=== PATIENT | female | born 1965 | race Caucasian/White ===

== ENCOUNTER 2020-09-06 08:12 | Outpatient (REF) | payer OTHER, SELFPAY ==
[2020-09-06 08:31] LABS: COVID-19 Test Negative (Negative); IDNOW Serial# 55D5AD1C
== END 2020-09-06 08:13 | disposition home or self-care (01) ==
LOC: HO.EMPCOV 08:12
PROVIDERS: Visit Provider Internal Medicine
DX: Z20.822 Contact with and (suspected) exposure to COVID-19 (principal)
CPT/HCPCS: 36415; 87635; C9803

== ENCOUNTER 2020-11-17 12:07 | Outpatient (REF) | payer OTHER, SELFPAY ==
--- NOTE | ~2020-11-17 | XR_ITS ---
EXAMINATION: XR ELBOW, LEFT CLINICAL INFORMATION: Pain in left elbow COMPARISON: None TECHNIQUE: AP, lateral, and oblique views of the left elbow. FINDINGS: There are multiple radiopaque anchors in place involving the distal humerus. There is irregular appearance at the elbow, with contour deformity of the distal humerus. The articulation of the proximal radius and ulna with the distal humerus is disrupted. No acute fractures are seen. Diffuse soft tissue swelling noted. No definite joint effusion. XR/XR elbow LT 2V IMPRESSION: Abnormal appearance at the left elbow with deformity of the distal humerus associated with disruption of the articulation. Multiple radiopaque anchors are noted.
== END 2020-11-17 12:08 | disposition home or self-care (01) ==
LOC: HO.XRAY 12:07
PROVIDERS: PCP Internal Medicine Endocrinology, Diabetes & Metabolism; Visit Provider Orthopaedic Surgery Hand Surgery
DX: M25.522 Pain in left elbow (principal)
CPT/HCPCS: 73070

== ENCOUNTER 2020-11-28 08:10 | Outpatient (REF) | payer OTHER, SELFPAY ==
[2020-11-28 09:20] LABS: COVID-19 Test Negative (Negative)
== END 2020-11-28 08:11 | disposition home or self-care (01) ==
LOC: HO.EMPCOV 08:10
PROVIDERS: Visit Provider Internal Medicine
DX: Z20.822 Contact with and (suspected) exposure to COVID-19 (principal)
CPT/HCPCS: 36415; 87635; C9803

== ENCOUNTER 2021-03-02 09:49 | Outpatient (REF) | payer OTHER, SELFPAY ==
--- NOTE | ~2021-03-02 | US_ITS ---
EXAMINATION: COLOR-FLOW DUPLEX IMAGING OF THE BILATERAL LOWER EXTREMITY ARTERIAL SYSTEM. VELOCITY MEASUREMENTS THROUGHOUT THE FEMORAL ARTERIES WITH ANKLE-BRACHIAL PERIPHERAL ARTERIAL TESTING. Interventional Radiologist: Conner Almonte M.D., F.S.I.R., F.A.C.R. CLINICAL INFORMATION: This a 55-year-old female with poor circulation. Peripheral arterial disease. RIGHT FEMORAL RUNOFF VELOCITIES: The right common femoral artery measures 234 cm/s and triphasic. There is post stenotic turbulence. The right profunda femoral artery is 112 cm/s and is biphasic. Right proximal superficial femoral artery measures 168 cm/s and triphasic. Mid superficial femoral artery is 121 cm/s and triphasic. Distal right superficial femoral artery measures 105 cm/s and is triphasic. Right popliteal velocity measures 83 cm/s and is triphasic. The posterior tibial artery velocity measures 77 cm/s and was triphasic. The right ankle-brachial index is 0.87. The right toe brachial index is 0.60. LEFT FEMORAL RUNOFF VELOCITIES: The left common femoral artery measures 140 cm/s and triphasic. The left profunda femoral artery is 113 cm/s and is triphasic. Left proximal superficial femoral artery measures 121 cm/s and triphasic. Mid superficial femoral artery is 49 cm/s and triphasic. Distal left superficial femoral artery measures 282 cm/s and is biphasic. Left popliteal velocity measures 84 cm/s and is biphasic. The posterior tibial artery velocity measures 37 cm/s and was biphasic. The left ankle-brachial index is 0.52. The toe brachial index is 0.65. US/US arterial duplex LE BI IMPRESSION: 1. There is an elevated velocity with poststenotic turbulence in the right common femoral artery. This suggests right-sided aortoiliac inflow disease. 2. There is a high-grade stenosis with elevated velocity and an occlusion in the mid-distal left superficial femoral artery. 3. An arrhythmia is demonstrated on the duplex portion of the study. 4. There are bilateral hemodynamically significant stenoses based on the ankle-brachial indices.
--- NOTE | ~2021-03-02 | US_ITS ---
EXAMINATION: COLOR-FLOW DUPLEX IMAGING OF THE BILATERAL LOWER EXTREMITY ARTERIAL SYSTEM. VELOCITY MEASUREMENTS THROUGHOUT THE FEMORAL ARTERIES WITH ANKLE-BRACHIAL PERIPHERAL ARTERIAL TESTING. Interventional Radiologist: Conner Almonte M.D., F.S.I.R., F.A.C.R. CLINICAL INFORMATION: This a 55-year-old female with poor circulation. Peripheral arterial disease. RIGHT FEMORAL RUNOFF VELOCITIES: The right common femoral artery measures 234 cm/s and triphasic. There is post stenotic turbulence. The right profunda femoral artery is 112 cm/s and is biphasic. Right proximal superficial femoral artery measures 168 cm/s and triphasic. Mid superficial femoral artery is 121 cm/s and triphasic. Distal right superficial femoral artery measures 105 cm/s and is triphasic. Right popliteal velocity measures 83 cm/s and is triphasic. The posterior tibial artery velocity measures 77 cm/s and was triphasic. The right ankle-brachial index is 0.87. The right toe brachial index is 0.60. LEFT FEMORAL RUNOFF VELOCITIES: The left common femoral artery measures 140 cm/s and triphasic. The left profunda femoral artery is 113 cm/s and is triphasic. Left proximal superficial femoral artery measures 121 cm/s and triphasic. Mid superficial femoral artery is 49 cm/s and triphasic. Distal left superficial femoral artery measures 282 cm/s and is biphasic. Left popliteal velocity measures 84 cm/s and is biphasic. The posterior tibial artery velocity measures 37 cm/s and was biphasic. The left ankle-brachial index is 0.52. The toe brachial index is 0.65. US/US ALFIE complete IMPRESSION: 1. There is an elevated velocity with poststenotic turbulence in the right common femoral artery. This suggests right-sided aortoiliac inflow disease. 2. There is a high-grade stenosis with elevated velocity and an occlusion in the mid-distal left superficial femoral artery. 3. An arrhythmia is demonstrated on the duplex portion of the study. 4. There are bilateral hemodynamically significant stenoses based on the ankle-brachial indices.
== END 2021-03-02 09:50 | disposition home or self-care (01) ==
LOC: HO.US 09:49
PROVIDERS: Visit Provider Podiatrist Foot & Ankle Surgery
DX: I73.9 Peripheral vascular disease, unspecified (principal); I99.9 Unspecified disorder of circulatory system
CPT/HCPCS: 93923; 93925

== ENCOUNTER → 2021-04-06 15:34 | Outpatient (BNVA) | payer OTHER, SELFPAY | PROVIDERS: PCP Internal Medicine Endocrinology, Diabetes & Metabolism; Visit Provider Surgery Vascular Surgery ==

== ENCOUNTER 2021-04-19 07:27 | Day surgery (SDC) | payer OTHER, SELFPAY ==
[2021-04-19] VITALS (7 sets, daily range): BP systolic 111–135; BP diastolic 48–76; PULSE 64–75; RESP 18–20; TEMP 36.8; O2SAT 95–97; BMI 37.5
[2021-04-19] MEDS: 0.9 % Sodium Chloride 1,000 ML 100 ML IVCONT (08:45)
[2021-04-19 08:58] LABS: MANUAL DIFF FLAG NO
[2021-04-19 09:00] LABS: Basophils Absolute Auto 0.1 X10*3/uL (0.0-0.2); Basophils Percent Auto 0.5 % (0-2); Eosinophils Absolute Auto 0.3 X10*3/uL (0.0-0.4); Eosinophils Percent Auto 2.4 % (0-4); Hemoglobin 12.9 g/dl (12.0-16.0); Imm Gran Abs Auto 0.04 X10*3/uL (0.00-0.03); Imm Gran Pct Auto 0.4 % (0.0-0.4); Lymphocytes Absolute Auto 3.1 X10*3/uL (1.2-4.9); Lymphocytes Percent Auto 27.4 % (20-40); Mean Corpuscular HGB Conc 33.1 g/dl (31.0-35.0); Mean Corpuscular Hemoglobin 31.2 pg (27.0-33.0); Mean Corpuscular Volume 94.2 fL (80-98); Mean Platelet Volume 9.4 fL (9.4-12.3); Monocytes Absolute Auto 0.8 X10*3/uL (0.1-1.2); Monocytes Percent Auto 6.9 % (2-11); Neutrophils Absolute Auto 7.1 X10*3/uL (2.0-8.3); Neutrophils Percent Auto 62.4 % (45-73); Platelet Count 330 X10*3/uL (160-400); Red Blood Count 4.14 X10*6/uL (4.20-5.50); White Blood Count 11.4 X10*3/uL (4.8-10.8)
[2021-04-19 09:05] LABS: INTERNATIONAL NORM RATIO 0.9 (0.9-1.1); Prothrombin Time 10.4 SEC (9.9-13.0)
[2021-04-19 09:08] LABS: Partial Thromboplastin Time 29.3 SEC (24.1-38.0)
[2021-04-19 09:12] LABS: Anion Gap 13 (12-20); Blood Urea Nitrogen 19 mg/dL (9-16); Calcium 10.2 mg/dL (8.4-10.2); Carbon Dioxide 27 mmol/L (22-29); Chloride 102 mmol/L (96-108); Creatinine Clr Calc Pharmacy 115.4; Estimated Glomerular Filt Rate > 60; Glucose Random 165 mg/dL (60-115); Potassium 4.4 mmol/L (3.3-5.1); Sodium 138 mmol/L (135-145)
--- NOTE | 2021-04-19 11:53 | P.OP_ITS ---
Operative Note Operative Note Date of Service: 04/19/21 Narrative: Angiogram report from [facility] Preoperative diagnosis: Atherosclerosis of leftlower extremity with activity limiting claudication Postoperative diagnosis: Same Procedure: 1. Ultrasound-guided rightcommon femoral access 2. Aortogram with left lower extremity runoff 3. Left SFA atherectomy with stent 4. Left popliteal plasty with drug coated balloon 5. Left proximal SFA plasty with drug coated balloon Surgeon:Jorje Carbajal M.D. Transplant Nurse:None Anesthesia: Local with moderate conscious sedation for a total of 67 minutes, performed by wy Specimens:none Drains:none Estimated blood loss: Less than 10 ml Indications: 55-year-old female with a history of left foot problems and a bunion was seen and evaluated by Podiatry. It was recognized that she had peripheral vascular disease and had noninvasive testing. Subsequent to that she was seen by me and now presents for endovascular intervention. The patient has signed the informed consent after reviewing risks, complications, benefits, and alternatives previously discussed with the patient in my office. The patient was given the opportunity to ask any additional questions or voice any concerns. All questions were answered to the patient's satisfaction. Procedure in detail: Patient was brought to the angiography suite prior to which a time-out was called for patient identification and site verification. Bilateral groins were prepped and draped in the standard surgical fashion. Under ultrasound guidance right common femoral was punctured with micro puncture needle and wire. Subsequently a precision 4 [place] sheath was then placed. Bentson wire was advanced to the level of the aorta. 4 [place] Flush catheter was brought up and parked at the level of the renal arteries. Aortogram was then undertaken. Catheter was brought down to the level of the iliac bifurcation. Iliacs were subsequently imaged. Catheter was then brought in up and over to the left side SFA. Runoff study was then undertaken. It was recognized that she had a total occlusion in the distal left SFA. We administered 5000 units of systemic heparin. Up and over 6 [place] sheath was then placed. Glidewire Advantage and a NaviCross catheter was used to traverse this lesion. We were able to get across that occlusion in the distal SFA and we confirmed true lumen with a catheter. Once this was accomplished we advanced a spider wire across this lesion. Hawk 1 atherectomy was indicated. Multiple passes were undertaken. Once we achieved good reduction we then plasty this area with a 5 x 60 balloon. We then placed a 6 x 60 stent in that area, which was more towards Silvino's canal. We then turned our attention to the below-knee popliteal. We noticed that there was a high-grade stenosis. This was initially plasty with a 5 x 40 regular balloon. We subsequently plasty this area with a 5 x 40 drug coated balloon. This was brought into position in under 3 minutes and insufflated for a total of 3 minutes in duration. Next we turned our attention to the proximal SFA right near the per takeoff of the profunda. There was high- grade stenosis. This was plasty with a 6 x 40 balloon regular balloon. We then plasty to with a 6 x 40 drug coated balloon. Once again this was brought into position and under 3 minutes and insufflated for a total of 3 minutes in duration. Patient tolerated the procedure well will but catheter wire sheath back to the ipsilateral side StarClose closure device was deployed patient tolerated the procedure well returned to recovery with stable vitals. Interpretation of films: 1. Ultrasound demonstrates appropriate femoral puncture. Image of which was saved. 2. Aortogram demonstrates appropriate caliber aorta. Minimal disease. Appropriate take-off of the renals. 3. Iliac images demonstrate good flow through bilateral iliacs 4. Left proximal SFA high-grade stenosis Silvino's canal total occlusion with reconstitution at the above knee popliteal high-grade stenosis at the behind knee popliteal. Three vessel runoff with anterior tibial and posterior tibial being more dominant. Conclusion: 1. Successful atherectomy and stent of left SFA successful plasty of left proximal SFA and popliteal. Due to the use of a drug coated balloon 6 months of aspirin and Plavix will be required. This note is constructed using voice recognition software. While every effort has been made to ensure accuracy, accredited legal secretary errors may have been included. Thank you for allowing me to participate in the care of your patient. Yours sincerely, Jorje Carbajal MD, FACS, R.P.V.I.
[2021-04-19] MEDS: Clopidogrel Bisulfate 300 MG TABLET PO (12:19)
[2021-04-19] MEDS: Acetaminophen 325 MG TABLET 650 MG PO (14:20)
[2021-04-19] MEDS: oxyCODONE HCl Immed Release 5 MG TABLET PO (14:22)
== END 2021-04-19 14:25 | disposition home or self-care (01) ==
PROVIDERS: Visit Provider Surgery Vascular Surgery
DX: I70.212 Atherosclerosis of native arteries of extremities with intermittent claudication, left leg (principal); F17.210 Nicotine dependence, cigarettes, uncomplicated
CPT/HCPCS: 36415; 37227; 76937; 80048; 85025; 85610; 85730; 99152; 99153; C1714; C1725; C1760; C1769; C1876; C1884; C1887; J2250; J3010; Q9967

== ENCOUNTER → 2021-05-09 15:30 | Outpatient (BNVA) | payer OTHER, SELFPAY | PROVIDERS: PCP Internal Medicine Endocrinology, Diabetes & Metabolism; Visit Provider Surgery Vascular Surgery ==

== ENCOUNTER 2021-07-19 13:03 | Outpatient (REF) | payer OTHER, SELFPAY ==
--- NOTE | ~2021-07-19 | US_ITS ---
EXAMINATION: NONINVASIVE ASSESSMENT OF THE ARTERIES OF BOTH LOWER EXTREMITIES Rocky Hyde MD CLINICAL INFORMATION: Peripheral vascular disease. TECHNIQUE: Bilateral lower extremity duplex ultrasound was performed with velocity measurements and waveform analysis in the common femoral arteries, profunda femoris arteries, proximal mid and distal superficial femoral arteries, popliteal arteries and tibial vessels. In addition, ankle-brachial indices were calculated bilaterally. This study was performed only at rest. COMPARISON: 03/02/2021 FINDINGS: Velocities in cm/sec and phasicity as well as the presence of plaque are reported below. RIGHT LEG: Mild plaque is present. Some elevated velocities are present in the proximal SFA indicative of a stenosis. However, multiphasic flow is present throughout the lower extremity. ALFIE: 0.86 (previously 0.87, essentially identical) Common Femoral: 132 Profunda Femoris: 133 Proximal SFA: 228 Mid SFA: 125 Distal SFA: 123 Popliteal: 123 Tibial: 96 LEFT LEG: Mild plaquing is present with some elevated velocities in the common femoral and SFA indicative of mild areas of stenosis. Triphasic flow, however, is noted throughout the entire lower extremity. A stent is present in the mid SFA on the left, new since the prior study. ALFIE: 0.91 (previously 0.52) Common Femoral: 194 Profunda Femoris: 103 Proximal SFA: 180 Mid SFA: 162 Distal SFA: 124 Popliteal: 89 Tibial: 94 SFA stent: Velocities range from 84-146 US/US arterial duplex LE BI IMPRESSION: Interval placement of left SFA stent with normalization of ankle-brachial index from 0.52-0.91. No hemodynamically lower extremity disease is felt to be present at this time with multiphasic flow noted throughout.
--- NOTE | ~2021-07-19 | US_ITS ---
EXAMINATION: NONINVASIVE ASSESSMENT OF THE ARTERIES OF BOTH LOWER EXTREMITIES Rocky Hyde MD CLINICAL INFORMATION: Peripheral vascular disease. TECHNIQUE: Bilateral lower extremity duplex ultrasound was performed with velocity measurements and waveform analysis in the common femoral arteries, profunda femoris arteries, proximal mid and distal superficial femoral arteries, popliteal arteries and tibial vessels. In addition, ankle-brachial indices were calculated bilaterally. This study was performed only at rest. COMPARISON: 03/02/2021 FINDINGS: Velocities in cm/sec and phasicity as well as the presence of plaque are reported below. RIGHT LEG: Mild plaque is present. Some elevated velocities are present in the proximal SFA indicative of a stenosis. However, multiphasic flow is present throughout the lower extremity. ALFIE: 0.86 (previously 0.87, essentially identical) Common Femoral: 132 Profunda Femoris: 133 Proximal SFA: 228 Mid SFA: 125 Distal SFA: 123 Popliteal: 123 Tibial: 96 LEFT LEG: Mild plaquing is present with some elevated velocities in the common femoral and SFA indicative of mild areas of stenosis. Triphasic flow, however, is noted throughout the entire lower extremity. A stent is present in the mid SFA on the left, new since the prior study. ALFIE: 0.91 (previously 0.52) Common Femoral: 194 Profunda Femoris: 103 Proximal SFA: 180 Mid SFA: 162 Distal SFA: 124 Popliteal: 89 Tibial: 94 SFA stent: Velocities range from 84-146 US/US ALFIE complete IMPRESSION: Interval placement of left SFA stent with normalization of ankle-brachial index from 0.52-0.91. No hemodynamically lower extremity disease is felt to be present at this time with multiphasic flow noted throughout.
== END 2021-07-19 13:04 | disposition home or self-care (01) ==
LOC: HO.US 13:03
PROVIDERS: PCP Internal Medicine Endocrinology, Diabetes & Metabolism; Visit Provider Surgery Vascular Surgery
DX: I73.9 Peripheral vascular disease, unspecified (principal)
CPT/HCPCS: 93923; 93925

== ENCOUNTER → 2021-08-01 15:34 | Outpatient (BNVA) | payer OTHER, SELFPAY | PROVIDERS: PCP Internal Medicine Endocrinology, Diabetes & Metabolism; Visit Provider Surgery Vascular Surgery ==

== ENCOUNTER 2021-12-07 11:55 | Outpatient (REF) | payer OTHER, SELFPAY ==
--- NOTE | ~2021-12-07 | XR_ITS ---
EXAMINATION: KNEE X-RAY CLINICAL INFORMATION: Pain COMPARISON: Previous x-ray June 2017 TECHNIQUE: Standing AP view of both knees and lateral and sunrise view of the left knee FINDINGS: Left: There is valgus angulation. There is a large bony osteophyte projecting off the medial tibia question related to old injury of the medial collateral ligament. There is arthritis at the lateral patellofemoral and femoral tibial joints with joint space narrowing and osteophyte formation. There is a small joint effusion. There is evidence of atherosclerotic disease and SFA stent. Standing AP view of the right knee demonstrates mild valgus angulation and joint space narrowing at the lateral femoral tibial joint. XR/XR knee standing BI IMPRESSION: Left: Valgus angulation. Degenerative changes at the lateral femoral tibial and patellofemoral joints. Bony osteophyte question related to old medial collateral ligament injury. Right Mild valgus angulation and arthritis at the lateral femoral tibial joint.
--- NOTE | ~2021-12-07 | XR_ITS ---
EXAMINATION: KNEE X-RAY CLINICAL INFORMATION: Pain COMPARISON: Previous x-ray June 2017 TECHNIQUE: Standing AP view of both knees and lateral and sunrise view of the left knee FINDINGS: Left: There is valgus angulation. There is a large bony osteophyte projecting off the medial tibia question related to old injury of the medial collateral ligament. There is arthritis at the lateral patellofemoral and femoral tibial joints with joint space narrowing and osteophyte formation. There is a small joint effusion. There is evidence of atherosclerotic disease and SFA stent. Standing AP view of the right knee demonstrates mild valgus angulation and joint space narrowing at the lateral femoral tibial joint. XR/XR knee LT 2V IMPRESSION: Left: Valgus angulation. Degenerative changes at the lateral femoral tibial and patellofemoral joints. Bony osteophyte question related to old medial collateral ligament injury. Right Mild valgus angulation and arthritis at the lateral femoral tibial joint.
== END 2021-12-07 11:56 | disposition home or self-care (01) ==
LOC: HO.HOSX 11:55
PROVIDERS: Visit Provider Orthopaedic Surgery
DX: M17.12 Unilateral primary osteoarthritis, left knee (principal)
CPT/HCPCS: 73560; 73565

== ENCOUNTER 2022-02-12 13:30 | Outpatient (REF) | payer OTHER, SELFPAY ==
--- NOTE | ~2022-02-12 | US_ITS ---
EXAMINATION: COLOR-FLOW DUPLEX IMAGING OF THE BILATERAL LOWER EXTREMITY ARTERIAL SYSTEM. VELOCITY MEASUREMENTS THROUGHOUT THE FEMORAL ARTERIES WITH ANKLE-BRACHIAL PERIPHERAL ARTERIAL TESTING. Interventional Radiologist: Conner Almonte M.D., F.S.I.R., F.A.C.R. CLINICAL INFORMATION: This a 56-year-old female with peripheral vascular disease. The patient status post left superficial femoral artery angioplasty and stent. COMPARISON: Comparison is made to a previous study dated 07/19/2021. RIGHT FEMORAL RUNOFF VELOCITIES: The right common femoral artery measures 230 cm/s and triphasic. Previously, this measured 132 cm/s and triphasic. The right profunda femoral artery is 210 cm/s and is biphasic. Previously, this measured 133 cm/s and biphasic. Right proximal superficial femoral artery measures 213 cm/s and triphasic. Previously, this measured 228 cm/s and triphasic. Mid superficial femoral artery is 224 cm/s and triphasic. Previously, this measured 125 cm/s and triphasic. Distal right superficial femoral artery measures 116 cm/s and is triphasic. Right popliteal velocity measures 116 cm/s and is triphasic. The posterior tibial artery velocity measures 75 cm/s and was biphasic. The right ankle-brachial index is 0.86. Previously, this measured 0.80. LEFT FEMORAL RUNOFF VELOCITIES: The left common femoral artery measures 203 cm/s and triphasic. Previously, this measured 194 cm/s and triphasic. The left profunda femoral artery is 90 cm/s and is triphasic. Left proximal superficial femoral artery measures 185 cm/s and triphasic. Mid superficial femoral artery is 125 cm/s and biphasic. Previously, this measured 162 cm/s and triphasic. Distal left superficial femoral artery measures 166 cm/s and is monophasic. Previously, this measured 124 cm/s and triphasic. Left popliteal velocity measures 65 cm/s and is biphasic. Previously, this measured 89 cm/s and triphasic. The posterior tibial artery velocity measures 66 cm/s and was triphasic. Previously, this measured 94 cm/s and triphasic. LEFT FEMORAL ARTERY STENT VELOCITIES: [place] artery proximal to the stent: 111 cm/s and triphasic. Proximal stent: 125 cm/s and biphasic. Previously, this was 146 cm/s and triphasic. Mid stent: 91 cm/s and biphasic. Previously, this was 98 cm/s and triphasic. Distal stent: 85 cm/s and biphasic. Previously, this was 84 cm/s and triphasic. [place] artery distal to stent: 166 cm/s and monophasic. Previously, this was 124 cm/s and triphasic. The left ankle-brachial index is 0.78. Previously, this measured 0.91. US/US arterial duplex LE BI IMPRESSION: 1. There are now elevated velocities from the right common femoral artery extending down into the mid superficial femoral artery. These velocities now appear elevated compared to the previous examination. However, the ankle-brachial index is now 0.80 as noted. 2. There are dampened waveforms in the left superficial femoral artery stent compared to the triphasic waveforms present on the previous study. In addition, the left ankle-brachial index appears to have decreased and now measures 0.78. Previously, this measured 0.91. There may be progression of disease.
--- NOTE | ~2022-02-12 | US_ITS ---
EXAMINATION: COLOR-FLOW DUPLEX IMAGING OF THE BILATERAL LOWER EXTREMITY ARTERIAL SYSTEM. VELOCITY MEASUREMENTS THROUGHOUT THE FEMORAL ARTERIES WITH ANKLE-BRACHIAL PERIPHERAL ARTERIAL TESTING. Interventional Radiologist: Conner Almonte M.D., F.S.I.R., F.A.C.R. CLINICAL INFORMATION: This a 56-year-old female with peripheral vascular disease. The patient status post left superficial femoral artery angioplasty and stent. COMPARISON: Comparison is made to a previous study dated 07/19/2021. RIGHT FEMORAL RUNOFF VELOCITIES: The right common femoral artery measures 230 cm/s and triphasic. Previously, this measured 132 cm/s and triphasic. The right profunda femoral artery is 210 cm/s and is biphasic. Previously, this measured 133 cm/s and biphasic. Right proximal superficial femoral artery measures 213 cm/s and triphasic. Previously, this measured 228 cm/s and triphasic. Mid superficial femoral artery is 224 cm/s and triphasic. Previously, this measured 125 cm/s and triphasic. Distal right superficial femoral artery measures 116 cm/s and is triphasic. Right popliteal velocity measures 116 cm/s and is triphasic. The posterior tibial artery velocity measures 75 cm/s and was biphasic. The right ankle-brachial index is 0.86. Previously, this measured 0.80. LEFT FEMORAL RUNOFF VELOCITIES: The left common femoral artery measures 203 cm/s and triphasic. Previously, this measured 194 cm/s and triphasic. The left profunda femoral artery is 90 cm/s and is triphasic. Left proximal superficial femoral artery measures 185 cm/s and triphasic. Mid superficial femoral artery is 125 cm/s and biphasic. Previously, this measured 162 cm/s and triphasic. Distal left superficial femoral artery measures 166 cm/s and is monophasic. Previously, this measured 124 cm/s and triphasic. Left popliteal velocity measures 65 cm/s and is biphasic. Previously, this measured 89 cm/s and triphasic. The posterior tibial artery velocity measures 66 cm/s and was triphasic. Previously, this measured 94 cm/s and triphasic. LEFT FEMORAL ARTERY STENT VELOCITIES: [place] artery proximal to the stent: 111 cm/s and triphasic. Proximal stent: 125 cm/s and biphasic. Previously, this was 146 cm/s and triphasic. Mid stent: 91 cm/s and biphasic. Previously, this was 98 cm/s and triphasic. Distal stent: 85 cm/s and biphasic. Previously, this was 84 cm/s and triphasic. [place] artery distal to stent: 166 cm/s and monophasic. Previously, this was 124 cm/s and triphasic. The left ankle-brachial index is 0.78. Previously, this measured 0.91. US/US ALFIE complete IMPRESSION: 1. There are now elevated velocities from the right common femoral artery extending down into the mid superficial femoral artery. These velocities now appear elevated compared to the previous examination. However, the ankle-brachial index is now 0.80 as noted. 2. There are dampened waveforms in the left superficial femoral artery stent compared to the triphasic waveforms present on the previous study. In addition, the left ankle-brachial index appears to have decreased and now measures 0.78. Previously, this measured 0.91. There may be progression of disease.
== END 2022-02-12 13:31 | disposition home or self-care (01) ==
LOC: HO.US 13:30
PROVIDERS: Visit Provider Surgery Vascular Surgery
DX: I73.9 Peripheral vascular disease, unspecified (principal)
CPT/HCPCS: 93923; 93925

== ENCOUNTER → 2022-03-08 15:30 | Outpatient (BNVA) | payer OTHER, SELFPAY | PROVIDERS: Visit Provider Orthopaedic Surgery | DX: Z01.812 Encounter for preprocedural laboratory examination (principal) ==

== ENCOUNTER 2022-04-10 11:55 | Inpatient (IN) | payer OTHER, SELFPAY ==
[2022-03-30 06:49] LABS: MANUAL DIFF FLAG NO
[2022-03-30 07:04] LABS: Basophils Absolute Auto 0.1 X10*3/uL (0.0-0.2); Basophils Percent Auto 0.5 % (0-2); Eosinophils Absolute Auto 0.3 X10*3/uL (0.0-0.4); Eosinophils Percent Auto 2.1 % (0-4); Hematocrit 41.5 % (37.0-47.0); Hemoglobin 13.7 g/dl (12.0-16.0); Imm Gran Abs Auto 0.07 X10*3/uL (0.00-0.03); Imm Gran Pct Auto 0.5 % (0.0-0.4); Lymphocytes Absolute Auto 4.9 X10*3/uL (1.2-4.9); Lymphocytes Percent Auto 32.2 % (20-40); Mean Corpuscular Hemoglobin 30.9 pg (27.0-33.0); Mean Corpuscular Volume 93.5 fL (80.0-98.0); Mean Platelet Volume 9.4 fL (9.4-12.3); Monocytes Absolute Auto 1.1 X10*3/uL (0.1-1.2); Monocytes Percent Auto 7.3 % (2-11); Neutrophils Absolute Auto 8.7 x10*3/uL (2.0-8.3); Neutrophils Percent Auto 57.4 % (45-73); Platelet Count 386 X10*3/uL (160-400); Red Blood Count 4.44 X10*6/uL (4.20-5.50); Red Cell Distribution Width 14.6 % (11.0-16.0); White Blood Count 15.2 X10*3/uL (4.8-10.8)
[2022-03-30 07:19] LABS: Anion Gap 19 (12-20); Blood Urea Nitrogen 48 mg/dL (9-16); Calcium 9.7 mg/dL (8.4-10.2); Carbon Dioxide 20 mmol/L (22-29); Chloride 105 mmol/L (96-108); Estimated Glomerular Filt Rate > 60; Glucose Random 169 mg/dL (60-115); Potassium 4.6 mmol/L (3.3-5.1); Sodium 139 mmol/L (135-145)
[2022-04-03 12:21] VITALS: BP 131/58; PULSE 96; RESP 20; O2SAT 95; BMI 37.8
--- NOTE | 2022-04-03 12:37 | P.CONAN_ITS ---
Documented by User: Josephine Neri NP 04/03/22 13:05 HPI - Anesthesia Eval Consult details Narrative: 56yo F for Left Knee Replacement Total PCP clearance pending Vascular cleared (LLE peripheral stent 04/2021) [facility] Active Problems Active Problems: All Active Problems (Updated 04/03/22 @ 12:12 by Mary Ac RN) PAD (peripheral artery disease) (Acute) Osteoarthritis of left knee (Acute) Past Medical History Medical History Arthritis COVID-19 vaccine series completed Diabetes Hypertension Peripheral artery disease Family History Family History Father Aneurysm Mother No problems noted. Family history of problems with anesthesia: No Surgical History Surgical History H/O colonoscopy History of intravascular stent placement Hx of breast biopsy Hx of elbow surgery Hx of tubal ligation Hx of wisdom tooth extraction History of Problems with Anesthesia: No Social History Social History Are you a primary skin care instructor to a significant other at home: No Do you presently have visiting nurse or other home services: No Patient Tobacco Use Status: Current everyday Tobacco user Tobacco use type: Cigarette Cigarettes Per Day: 10 Years Smoked: 40 Use of substances other than those prescribed or required for medical reasons: Yes Substance Use Frequency: Weekly Have you been hit, kicked, punched, or otherwise hurt by someone within the past year? 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 Allergies Allergy/AdvReac Type Severity Reaction Status Date / Time No Known Allergies Allergy Verified 02/15/22 15:19 Home Medications Medication Instructions Recorded Confirmed Last Taken Type glipizide 2.5 mg tablet, extended 2.5 mg PO QAM 0804/03/22 04/09/22 History release 24 hr metformin 1,000 mg tablet 1,000 mg PO BID 04/06/21 04/03/22 04/09/22 History empagliflozin 10 mg tablet 10 mg PO QAM 12/07/21 04/03/22 04/09/22 History (Jardiance) aspirin 81 mg tablet,delayed 81 mg PO QAM 04/03/22 04/03/22 04/03/22 History release insulin glargine 100 60 unit subcut BEDTIME 04/03/22 04/03/22 04/09/22 History unit-lixisenatide 33 mcg/mL subcutaneous pen (Soliqua 100/33) lisinopril 20 1 tab PO QAM 04/03/22 04/03/22 04/09/22 History mg-hydrochlorothiazide 25 mg tablet acetaminophen 300 mg-codeine 30 mg 1 tab PO DAILY PRN Pain 04/05/22 04/07/22 History tablet atorvastatin 10 mg tablet 1 tab PO DAILY 04/10/22 04/10/22 04/09/22 History Exam Exam Date and Time: April 03, 2022 1238 Height,Weight and Vital Signs: Height 5 ft 4.5 in Weight 101.469 kg Last Vital Signs Pulse 96 04/03/22 12:21 Resp 20 04/03/22 12:21 BP 131/58 L 04/03/22 12:21 Pulse Ox 95 04/03/22 12:21 O2 Del Method 04/03/22 12:21 Pertinent Lab Results Pertinent Lab Results: Laboratory Tests 03/30/22 03/30/22 06:47 06:47 WBC 15.2 H RBC 4.44 Hgb 13.7 Hct 41.5 MCV 93.5 MCH 30.9 MCHC 33.0 RDW 14.6 Plt Count 386 MPV 9.4 Immature Gran % (Auto) 0.5 H Neut % (Auto) 57.4 Lymph % (Auto) 32.2 [place] % (Auto) 7.3 Eos % (Auto) 2.1 Baso % (Auto) 0.5 Lymph # (Auto) 4.9 [place] # (Auto) 1.1 Eos # (Auto) 0.3 Baso # (Auto) 0.1 Abs Immat Gran (auto) 0.07 H Absolute Neuts (auto) 8.7 H Absolute Nucleated RBC 0.000 Nucleated RBC % (auto) 0.0 Sodium 139 Potassium 4.6 Chloride 105 Carbon Dioxide 20 L Anion Gap 19 BUN 48 H Creatinine 0.86 Estim Creat Clear Calc TNP Estimated GFR > 60 Random Glucose 169 H Calcium 9.7 Narrative Narrative: EKG 03/2022 NSR @ 96 Airway Mallampati Class: I TM Dist: >3cm Neck ROM: Full Loose/Missing/Broken Teeth: No (#15 crown) Heart: RRR Lungs: CTAB Assessment and Plan Assessment Anesthesia Assessment: Anesthesia Plan Discussed, Smoking Cess. Discussed and PAT Visit Final Anesthetic Review Family History of Problems with Anesthesia: No History of Problems with Anesthesia: No Documented by User: Mika Reddy MD 04/10/22 18:17 HPI - Anesthesia Eval Consult details Narrative: 56yo F for Left Knee Replacement Total Vascular cleared (LLE peripheral stent 04/2021) [facility] Past Medical History Medical History Arthritis COVID-19 vaccine series completed Diabetes Hypertension Peripheral artery disease Family History Family History Father Aneurysm Mother No problems noted. Surgical History Surgical History H/O colonoscopy History of intravascular stent placement Hx of breast biopsy Hx of elbow surgery Hx of tubal ligation Hx of wisdom tooth extraction Social History Social History Are you a primary skin care instructor to a significant other at home: No Do you presently have visiting nurse or other home services: No Patient Tobacco Use Status: Current everyday Tobacco user Tobacco use type: Cigarette Cigarettes Per Day: 10 Years Smoked: 40 Use of substances other than those prescribed or required for medical reasons: Yes Substance Use Frequency: Weekly Have you been hit, kicked, punched, or otherwise hurt by someone within the past year? 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 Allergies Allergy/AdvReac Type Severity Reaction Status Date / Time No Known Allergies Allergy Verified 02/15/22 15:19 Home Medications Medication Instructions Recorded Confirmed Last Taken Type glipizide 2.5 mg tablet, extended 2.5 mg PO QAM 04/06/21 04/03/22 04/09/22 History release 24 hr metformin 1,000 mg tablet 1,000 mg PO BID 04/06/21 04/03/22 04/09/22 History empagliflozin 10 mg tablet 10 mg PO QAM 12/07/21 04/03/22 04/09/22 History (Jardiance) aspirin 81 mg tablet,delayed 81 mg PO QAM 04/03/22 04/03/22 04/03/22 History release insulin glargine 100 60 unit subcut BEDTIME 04/03/22 04/03/22 04/09/22 History unit-lixisenatide 33 mcg/mL subcutaneous pen (Soliqua 100/33) lisinopril 20 1 tab PO QAM 04/03/22 04/03/22 04/09/22 History mg-hydrochlorothiazide 25 mg tablet acetaminophen 300 mg-codeine 30 mg 1 tab PO DAILY PRN Pain 04/05/22 04/07/22 History tablet atorvastatin 10 mg tablet 1 tab PO DAILY 04/10/22 04/10/22 04/09/22 History Exam Airway Loose/Missing/Broken Teeth: Yes (#15 crown , fillings ) Assessment and Plan Assessment Anesthesia Assessment: Chart Reviewed Final Anesthetic Review NPO: Yes ASA Class: III Final Preanesthetic Review: Meds/Allgs Chart Reviewed, Consent Obtained/Reviewed and Anes Risks/Benef Reviewed Patient Risk: Intermediate Procedure Risk: Intermediate Anesthetic Plan Anesthetic Plan: Spinal and Regional Block Disposition: Standard PACU
[2022-04-03 14:57] LABS: MRSA Nasal PCR NEGATIVE (Negative); SA Nasal PCR NEGATIVE (Negative)
[2022-04-10] VITALS (19 sets, daily range): BP systolic 96–152; BP diastolic 45–95; PULSE 83–104; RESP 12–19; TEMP 36–36.9; O2SAT 95–100; BMI 38.2; BMI 41.2
--- NOTE | ~2022-04-10 | XR_ITS ---
EXAMINATION: XR KNEE, LEFT CLINICAL INFORMATION: Status-post left knee total arthroplasty. COMPARISON: Radiographs dated 12/07/2021. TECHNIQUE: Four views of the left knee. FINDINGS: Prosthetic components of the left total knee arthroplasty are appropriately aligned. No periprosthetic fracture. Gas from recent surgery is present in the joint and surrounding soft tissues. A joint effusion is present. There are femoral popliteal atherosclerotic calcifications. A femoral endovascular stent is noted. XR/XR knee LT 2V IMPRESSION: Appropriate alignment of the left total knee arthroplasty, without evidence of complications.
--- NOTE | ~2022-04-10 | US_ITS ---
CLINICAL INDICATION: Cold left foot. History of left superficial femoral artery metallic stent placement. FINDINGS: Real-time duplex on the examination of the left lower extremity arterial system was performed from the level of the common femoral artery to the calf. Left lower extremity peak systolic velocities (cm/s): Common femoral artery: 167 Profunda femoral artery: 237 Proximal superficial femoral artery: 54 Mid superficial femoral artery: 69 Distal superficial femoral artery: 116 Popliteal artery: No flow identified Posterior tibial artery: 80 Grayscale and color Doppler imaging of the left lower extremity demonstrates triphasic flow to the mid superficial femoral artery proximal to a previously placed stent. Monophasic flow within the distal aspect of the superficial femoral artery stent. Lack of flow within the popliteal artery. Monophasic, severely blunted and widened waveforms within the posterior tibial artery. US/US arterial duplex LE LT IMPRESSION: Status post metallic stent placement within the distal aspect of the left superficial femoral artery. 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 Dr. Mcknight was directly informed of the findings by telephone at approximately 3:15 PM on April 11, 2022.
--- NOTE | 2022-04-10 12:03 | MHC.SHP ---
Pre-Procedural Eval Section A Date of Service: 04/10/22 The patient is an INPATIENT: No Changes since office visit: Yes Patient answered all questions; No Cold of Flu in the past 2 weeks, No New Medical Problems and No Changes in Medication The History & Physical has been completed within 30 days and I have reviewed it.: Yes Section B Chief Complaint: LT TKA Allergies: Allergies Allergy/AdvReac Type Severity Reaction Status Date / Time No Known Allergies Allergy Verified 02/15/22 15:19 Plan I have reviewed the history and physical and performed a pertinent physical examination on my patient. No changes have occurred unless specified.
[2022-04-10 12:28] LABS: Glucose, Whole Blood 130 mg/dL (60-115)
[2022-04-10 12:42] LABS: Hematocrit 42.6 % (37.0-47.0); Hemoglobin 14.2 g/dl (12.0-16.0)
[2022-04-10 12:53] LABS: COVID-19 Test Negative (Negative)
[2022-04-10] MEDS: Lactated Ringers 1,000 ML 100 ML IVCONT ×2 (12:58→17:35)
[2022-04-10] MEDS: Albuterol Sulfate (0.083%) 2.5 MG/3 ML VIAL.NEB INHALE (13:04)
--- NOTE | 2022-04-10 16:37 | P.BOP_ITS ---
Brief Operative Note Date of Service: 04/10/22 Pre-op diagnosis: Left knee OA Post-op diagnosis: same Procedure: Left TKA Implants: [place] Triathalon press fit posterior stabilized 10/19/10/a Surgeon: Bhavik Rodriguez MD Anesthesia: regional and spinal Was an Raw Stock Drier Tender used for this Procedure?: Yes Raw Stock Drier Tender: Jaky Stanley Estimated blood loss (mL): 150 IV fluids (mL): 1,000 Pathology: other Condition: stable Disposition: PACU
--- NOTE | 2022-04-10 16:40 | W.PM.OPN ---
Operative Note Operative Note Date of Service: 04/10/22 Narrative: Date of Service: 04/10/22 Pre-op diagnosis: Left knee OA Post-op diagnosis: same Procedure: Left TKA Implants: [place] Triathalon press fit posterior stabilized 10/19/10ps/29a Surgeon: Bhavik Rodriguez MD Anesthesia: regional and spinal Was an Medical Payment Poster used for this Procedure?: Yes Medical Payment Poster: Jaky Stanley Estimated blood loss (mL): 150 IV fluids (mL): 1,000 Pathology: other Condition: stable Disposition: PAC Procedure in detail: The patient was brought to the operating room and prepped and draped in standard sterile fashion. A time-out was called to identify proper site proper procedure proper surgeon and IV antibiotics were administered. 1 g of IV tranexamic acid was administered. I began by making a midline incision to the retinaculum and performed a medial parapatellar arthrotomy. The patella was translated laterally and the knee was flexed up. I performed a small medial peel and resected the infrapatellar fat pad. Rosalio's line was then used to drill my intramedullary femoral guide and my distal femur cut of 10mm mm was made in 5 degrees of valgus while protecting the soft tissues. I then measured a # 3 femur and placed my cutting guide and made my anterior posterior and chamfer cuts protecting the soft tissues at all times. I then made my box but removing the PCL. Once I was satisfied with my cuts I turned my attention to the tibia. I removed the meniscus medially and laterally and , using an external cutting guide, in line with the tibial crest and the third ray, I made my distal tibial cut in 0 deg slope of while protecting the posterior soft tissues at all times. An extension block was used to confirm appropriate amount of bony resection. I then sized a #3 tibia and once I was satisfied that there was complete tibial coverage I placed my trial and with the trial femur in place took the knee through range of motion. I was satisfied with the extension and flexion as well as the stability at 0, 30 and 90 degrees. I pie-crusted and used a cain to release the lateral ligamentous complex. I was satisfied with the balance at all ranges. I then turned my attention to the patella where I removed 1 cm from the undersurface of the patella and then trialed a 29a patellar button. Again the knee was taken through range of motion I was satisfied with the tracking. I then returned to the femur and drilled my femoral lug holes and prepared the tibia. A femoral bone plug was placed and the knee was irrigated copiously. I then press fit the patella, tibia and femur in standard fashion. I trialed different inserts until I selected a #11 insert. The final insert was placed and a 3 minutes iodine soak with local TXA was performed. The knee was then closed with a running Quill suture, a 3 0 Vicryl and patel on the skin. Patient was then placed in sterile dressing and brought to recovery room in stable condition there were no known complications.
[2022-04-10] MEDS: oxyCODONE HCl Immed Release 5 MG TABLET 10 MG PO ×2 (17:08→20:38)
[2022-04-10] MEDS: Acetaminophen 325 MG TABLET 650 MG PO (17:09)
[2022-04-10] MEDS: HYDROmorphone HCl 0.5 MG/0.5 ML SYRINGE 0.25 MG IVPUSH ×5 (17:37→23:27)
[2022-04-10] MEDS: HYDROmorphone HCl 1 MG/ML SYRINGE 0.5 MG IVPUSH (19:10)
[2022-04-10] MEDS: oxyCODONE HCl ER 10 MG TAB.ER.12H PO (20:37)
[2022-04-10] MEDS: Docusate Sodium 100 MG CAPSULE PO (22:06)
[2022-04-10] MEDS: Celecoxib 200 MG CAPSULE PO (22:06)
[2022-04-10] MEDS: ceFAZolin Sodium/Dextrose,Iso 2 GM/50 ML PIGGYBACK IV (22:09)
[2022-04-10] MEDS: 0.9 % Sodium Chloride Flush 3 ML SYRINGE IVFLUSH ×2 (22:10)
[2022-04-11] VITALS (10 sets, daily range): BP systolic 112–141; BP diastolic 57–80; PULSE 92–102; RESP 17–19; TEMP 36.1–36.9; O2SAT 92–97; BMI 38.2
[2022-04-11] MEDS: oxyCODONE HCl Immed Release 5 MG TABLET 10 MG PO (01:12)
[2022-04-11] MEDS: Lactated Ringers 1,000 ML 100 ML IVCONT ×2 (03:37→15:18)
[2022-04-11] MEDS: HYDROmorphone HCl 0.5 MG/0.5 ML SYRINGE 0.25 MG IVPUSH ×4 (03:37→17:52)
[2022-04-11 06:47] LABS: MANUAL DIFF FLAG NO
--- NOTE | 2022-04-11 06:55 | HO.PM.IMCN ---
History of Present Illness Data of Consult Service Date: 04/11/22 Primary Care Provider: Unknown Physician HPI 56-year-old female past medical history of diabetes, as well as hypertension admitted to the hospital for elective total knee arthroplasty on the left. Patient is complaining of urinary frequency, and reports that she had a terrible night as she had minimal control of her pain post surgery. She did not sleep well, feels anxious. patient reports urinary frequency with no dysuria or urgency. She has no constipation, has been passing gas. She has no chest pain, no shortness of breath. She would like to get out of bed but is scared due to the pain. vitals reviewed and appears stable Review of Systems Review of Systems: Yes all other systems are reviewed and are negative [facility] Medical History Arthritis COVID-19 vaccine series completed Diabetes Hypertension Peripheral artery disease Family History Father Aneurysm Mother No problems noted. Surgical History H/O colonoscopy History of intravascular stent placement Hx of breast biopsy Hx of elbow surgery Hx of tubal ligation Hx of wisdom tooth extraction Social History Household Members: Significant Other Housing: House Are you a primary manager care to a significant other at home: No Do you presently have visiting nurse or other home services: No Patient Tobacco Use Status: Current everyday Tobacco user Tobacco use type: Cigarette Cigarette Packs Per Day: 0.5 Cigarettes Per Day: 10.0 Years Smoked: 40 Patient Interested in Nicotine Replacement: No Patient Given Instructions on How to Stop Smoking: No Second Hand Smoke Exposure: No Use of substances other than those prescribed or required for medical reasons: Yes Substance Use Type: Marijuana Substance Use Frequency: Occasionally Last Used Substance: Days (ago) Currently Displaying Signs/Symptoms of Drug Intoxication Withdrawal: No Any prior treatment program specific to substance use: No Have you been hit, kicked, punched, or otherwise hurt by someone within the past year? If so, by whom?: No Do you feel safe in your current relationship?: No Is there a partner from a previous relationship who is making you feel unsafe now?: No Are you made to feel afraid or neglected: No Are you DNR?: No Advance Directives: No Advance Directives Information Provided: No (patient declined at this time) Advance Directives on File: No Do you have thoughts of harming others: None Do you have a plan to hurt others: No Plan Recently lost weight without trying: No How much weight loss: Not applicable Eating poorly because of decreased appetite: No Nutrition screen score: 0 Nutrition Risks: No Nutritional Risk Patient : No : No Poor oral hygiene: No Current occupational status: employed 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 Allergies Allergy/AdvReac Type Severity Reaction Status Date / Time No Known Allergies Allergy Verified 02/15/22 15:19 Active Medications: Current Medications Acetaminophen (Acetaminophen 325 Mg Tablet) 650 mg PO Q6H PRN PRN Reason: Pain, Mild (Pain Scale 1-3) Last Admin: 04/10/22 17:09 Dose: 650 mg Aspirin (Aspirin 325 Mg Tablet) 325 mg PO BID [facility] Celecoxib (Celecoxib 200 Mg Capsule) 200 mg PO BID [facility] Last Admin: 04/10/22 22:06 Dose: 200 mg Dextrose (Dextrose 50 % 25 Gm/50 Ml Syringe) 25 gm IVPUSH Q15M PRN; Protocol PRN Reason: per Hypoglycemia Standing Ord. Docusate Sodium (Docusate Sodium 100 Mg Capsule) 100 mg PO BID [facility] Last Admin: 04/10/22 22:06 Dose: 100 mg Glucose (Glucose Gel 15 Gm Gel..Gram.) 15 gm PO Q15M PRN; Protocol PRN Reason: per Hypoglycemia Standing Ord. Hydrochlorothiazide (Hydrochlorothiazide 25 Mg Tablet) 25 mg PO DAILY [facility] Hydromorphone HCl (Hydromorphone Hcl 0.5 Mg/0.5 Ml Syringe) 0.25 mg IVPUSH Q4H PRN; Protocol PRN Reason: Pain, Severe (Pain Scale 7-10) Last Admin: 04/11/22 03:37 Dose: 0.25 mg Lactated Ringer's (Lr) 1,000 mls @ 100 mls/hr IVCONT .Q10H [facility] Last Admin: 04/11/22 03:37 Dose: 100 mls/hr Insulin Human Lispro (Insulin Lispro 100 Unit/Ml 3 Ml Vial) 0 unit SUBCUT QIDACHS [facility]; Protocol Lisinopril (Lisinopril 20 Mg Tablet) 20 mg PO DAILY [facility] Non-Formulary Medication (Insulin Glargine-Lixisenatide [Soliqua 100/33]) 60 unit SUBCUT BEDTIME [facility] Ondansetron HCl (Ondansetron Hcl 4 Mg/2 Ml Vial) 4 mg IVPUSH Q8H PRN PRN Reason: Nausea and Vomiting Oxycodone HCl (Oxycodone Hcl Immed Release 5 Mg Tablet) 10 mg PO Q4H PRN PRN Reason: Pain, Moderate (Pain Scale 4-6 Last Admin: 04/11/22 01:12 Dose: 10 mg Oxycodone HCl (Oxycodone Hcl Er 10 Mg Tab.Er.12h) 10 mg PO BID [facility] Last Admin: 04/10/22 20:37 Dose: 10 mg Sodium Chloride (0.9 % Sodium Chloride Flush 3 Ml Syringe) 3 ml IVFLUSH QSHIFT [facility] Last Admin: 04/10/22 22:10 Dose: 3 ml Home Medications Medication Instructions Recorded Confirmed Last Taken Type glipizide 2.5 mg tablet, extended 2.5 mg PO QAM 04/06/21 04/03/22 04/09/22 History release 24 hr metformin 1,000 mg tablet 1,000 mg PO BID 04/06/21 04/03/22 04/09/22 History empagliflozin 10 mg tablet 10 mg PO QAM 12/07/21 04/03/22 04/09/22 History (Jardiance) aspirin 81 mg tablet,delayed 81 mg PO QAM 04/03/22 04/03/22 04/03/22 History release insulin glargine 100 60 unit subcut BEDTIME 04/03/22 04/03/22 04/09/22 History unit-lixisenatide 33 mcg/mL subcutaneous pen (Soliqua 100/33) lisinopril 20 1 tab PO QAM 04/03/22 04/03/22 04/09/22 History mg-hydrochlorothiazide 25 mg tablet acetaminophen 300 mg-codeine 30 mg 1 tab PO DAILY PRN Pain 04/05/22 04/07/22 History tablet atorvastatin 10 mg tablet 1 tab PO DAILY 04/10/22 04/10/22 04/09/22 History Physical Exam Vital Signs and Narrative: Vital Signs: Last Vital Signs Temp 97.5 F 04/11/22 02:17 Pulse 96 04/11/22 02:17 Resp 18 04/11/22 04:00 BP 136/70 04/11/22 02:17 Pulse Ox 93 04/11/22 02:17 O2 Del Method 04/11/22 02:17 O2 Flow Rate 2 04/10/22 23:41 BMI result Body Mass Index 41.2 Const: Other: patient is crying, appears anxious General: cooperative and no acute distress Orientation/consciousness: patient oriented x3 Eyes: General: appearance normal, both eyes and all related structures Resp: Effort & Inspection: normal respiratory effort Auscultation: clear to auscultation bilaterally Cardio: Rate: regular rate Rhythm: regular rhythm GI: Palpation (GI): Soft to palpation Auscultation: normal bowel sounds Skin: General skin exam: no rashes or lesions noted Neuro: General: patient oriented x3 Cognition (Neuro): normal cognition Extrem: Other: Left knee in Wale wrap, appears clean General: Yes no pedal edema Results Labs CBC and Chem 7: 04/10/22 12:36 03/30/22 06:47 Labs: Laboratory Results - last 24 hr 04/10/22 04/10/22 12:20 12:25 POC Glucose 130 H COVID-19 ([facility]) Negative COVID-19 Clin Com See Note Imaging Radiologist's Impressions: Impressions Knee X-Ray 04/10/22 17:35 IMPRESSION: Appropriate alignment of the left total knee arthroplasty, without evidence of complications. Assessment and Plan (1) Anxiety: Status: Acute (2) Urinary frequency: Status: Acute (3) Status post total knee replacement: Status: Acute Plan 56-year-old female with past medical history of hypertension as well as diabetes presents to the hospital for an elective total left knee replacement. We are asked to see this patient for medical management # Anxiety - likely in the setting of poorly controlled pain, post surgery and being in an acute hospital setting - will give hydroxyzine as needed # Urinary frequency - I do not believe pt has a UTI but will obtian UA - for now will monitor pending urine results # s/p TKA on left - pain not well controlled - pain management per orth # HTN - stable, will resume home meds # HTN - resume home insulin, hold oral antihyperglyceimics while inpatient- can resume on discharge - will add LDSSI - Recommend diabetic diet - POC QIDACHS thank you for this consult will continue to follow along with you
[2022-04-11 07:09] LABS: Basophils Percent Auto 0.2 % (0-2); Eosinophils Absolute Auto 0.1 X10*3/uL (0.0-0.4); Eosinophils Percent Auto 0.4 % (0-4); Hemoglobin 11.2 g/dl (12.0-16.0); Imm Gran Abs Auto 0.11 X10*3/uL (0.00-0.03); Imm Gran Pct Auto 0.7 % (0.0-0.4); Lymphocytes Absolute Auto 2.7 X10*3/uL (1.2-4.9); Lymphocytes Percent Auto 16.2 % (20-40); Mean Corpuscular HGB Conc 32.9 g/dl (31.0-35.0); Mean Corpuscular Hemoglobin 30.4 pg (27.0-33.0); Mean Corpuscular Volume 92.4 fL (80.0-98.0); Monocytes Absolute Auto 1.3 X10*3/uL (0.1-1.2); Monocytes Percent Auto 7.6 % (2-11); Neutrophils Absolute Auto 12.4 x10*3/uL (2.0-8.3); Neutrophils Percent Auto 74.9 % (45-73); Platelet Count 317 X10*3/uL (160-400); Red Blood Count 3.68 X10*6/uL (4.20-5.50); Red Cell Distribution Width 14.4 % (11.0-16.0); White Blood Count 16.5 X10*3/uL (4.8-10.8)
[2022-04-11 07:25] LABS: Glucose, Whole Blood 180 mg/dL (60-115)
[2022-04-11 07:29] LABS: Anion Gap 15 (12-20); Blood Urea Nitrogen 20 mg/dL (9-16); Calcium 8.7 mg/dL (8.4-10.2); Carbon Dioxide 24 mmol/L (22-29); Chloride 98 mmol/L (96-108); Creatinine Clr Calc Pharmacy 113.1; Estimated Glomerular Filt Rate > 60; Glucose Fasting 165 mg/dL (60-99); Potassium 4.4 mmol/L (3.3-5.1); Sodium 133 mmol/L (135-145)
--- NOTE | 2022-04-11 07:40 | PM.PNORT ---
Subjective Subjective Date of Service: 04/11/22 Interval history: POD1 s/p RTKA. Patient is resting in bed. No overnight events. Complains of pain. No additional complaints. Physical Exam Vital Signs: Vital Signs: Last Vital Signs Temp 98.2 F 04/11/22 07:15 Pulse 102 H 04/11/22 07:15 Resp 19 04/11/22 07:15 BP 138/80 04/11/22 07:15 Pulse Ox 92 04/11/22 07:15 O2 Del Method 04/11/22 07:15 O2 Flow Rate 2 04/10/22 23:41 BMI result Body Mass Index 41.2 Const: General: cooperative, healthy appearing and no acute distress Resp: Effort & Inspection: normal respiratory effort and able to speak in complete sentences Cardio: Rate: regular rate Peripheral pulses: Peripheral pulses 2+ throughout GI: Palpation (GI): Soft to palpation Skin: Lesions: no lesions Rashes: no rashes Extrem: Other: Right knee Aquacel is clean, dry, and intact. Able to dorsiflex and plantarflex. Able to actively flex the knee slightly. NVI. Procedures Date of Service Date of Service: 04/11/22 Progress Note: A&P Assessment and plan (1) Status post total knee replacement: Status: Acute Plan Continue pain mgmnt Begin ASA for dvt ppx begin PT for RTKA Dispo planning-Pending PT eval, pain mgmnt Time Spent With Patient Time: Total time spent is greater than 50% in coordination of care (as documented) at patient's floor/unit and/or counseling patient: Quality Stroke Does the patient have a stroke diagnosis?: No VTE Prior VTE?: No VTE Risk Level:: Medical - moderate - high VTE Device Contraindication: N/A - Device Ordered VTE Drug Contraindication: N/A - Med Ordered
[2022-04-11] MEDS: hydrOXYzine HCL 25 MG TABLET PO (07:46)
[2022-04-11] MEDS: Celecoxib 200 MG CAPSULE PO ×2 (07:46→20:34)
[2022-04-11] MEDS: oxyCODONE HCl ER 10 MG TAB.ER.12H PO ×2 (07:47→20:33)
[2022-04-11] MEDS: hydroCHLOROthiazide 25 MG TABLET PO (07:47)
[2022-04-11] MEDS: Docusate Sodium 100 MG CAPSULE PO ×2 (07:47→20:34)
[2022-04-11] MEDS: lisinopriL 20 MG TABLET PO (07:48)
[2022-04-11] MEDS: 0.9 % Sodium Chloride Flush 3 ML SYRINGE IVFLUSH (07:48)
--- NOTE | 2022-04-11 08:13 | P.CDIC_ITS ---
CDI Concurrent Query Documentation Clarification: PHYSICIAN'S DOCUMENTATION REQUEST Date of Query: 04/11/22812 Patient Name: Laury Meade Admit Date: 04/10/22 Dear Doctor, A review of the medical record indicates additional documentation may be needed. Please review below and update the documentation accordingly Risk Factors/Clinical Indicators/Treatments Nursing notes height and weight - BMI 41.2 5' 4 in height. Extreme obesity class III. If possible, please provide an associated diagnosis related to the abnormal BMI, such as: For a BMI >= 40: * Overweight * Obesity * Due to excess calories * Drug induced * Due to other cause * Severe or Morbid Obesity Use of terms such as suspected, likely, concern for, or probable (associated with a specific diagnosis that is being evaluated, monitored, or treated as if it exists) are acceptable and can be coded in the inpatient setting, when documented at the time of discharge. Thank you, Mari Haley [facility], CDIS Extension: [phone] Please use your independent medical judgment in providing your response. THIS QUERY IS PART OF THE PERMANENT MEDICAL RECORD Provider Response: Other Other Diagnosis: obesity 2nd excess calories
[2022-04-11] MEDS: Insulin Lispro 100 UNIT/ML 3 ML VIAL SUBCUT ×4 (08:30→20:35)
--- NOTE | 2022-04-11 09:16 | MHC.CM.PN ---
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 PT PREFERS HOME W/SERVICES AND AGREEABLE TO REFERRAL FOR [facility]. PT VERIFIES PCP IS MADI GALICIA, [place] X2 AND DENIES HAVING A HCP, PT DECLINING TO COMPLETE ONE AT THIS TIME AND DTR REPORTS FAMILY IS AWARE OF PT'S WISHES IF ANYTHING HAPPENS. REBECCA D/C TOMORROW 04/12 HOME W/[facility] FOR PT W/FAMILY FOR TRANSPORT.
--- NOTE | 2022-04-11 10:40 | HO.POSTANES ---
Post Anesthesia Evaluation Post Anesthesia Evaluation Vital Signs: Vital Signs Temp Pulse Resp BP Pulse Ox O2 Del Method O2 Flow Rate 04/11/22 08:41 102 H 138/80 92 04/11/22 07:15 98.2 F 102 H 19 138/80 92 Room Air 04/11/22 02:17 97.5 F 96 17 136/70 93 Room Air 04/10/22 23:41 96.8 F 94 17 128/66 98 Nasal Cannula 2 04/11/22 04:00 18 Anesthesia: Spinal and Nerve Block Mental Status: Awake Pain Control: Satisfactory (complains of pain) Nausea/Vomiting: None Hydration: Adequate Anesthesia-Related Issues: No Anes. Related Issues
[2022-04-11 11:18] LABS: Glucose, Whole Blood 226 mg/dL (60-115)
--- NOTE | 2022-04-11 11:23 | PC.NURSE ---
Addendum entered by Karen Interiano RN 04/11/22 11:29: response from STEVE Covington recieved stating to observe and keep check in her. Have her moving Original Note: pt complaining of some mild discomfort in Left foot after Left TKA. This RN went to assess and noted Left foot cold to touch when compared to the right foot. Able to find a faint pulse on left foot, normal pulse found on right foot. Pt stated she was able to feel when her foot was being touched but stated that it felt slightly uncomfortable. Message sent to Tamie Covington at [phone] 04/11/22 awaiting response from STEVE.
--- NOTE | 2022-04-11 15:11 | PM.EVENT ---
Event Note Date of Service: 04/11/22 Event Note: dvt+ Dr Dent following with Dr Carbajal popliteal fossa
[2022-04-11 15:30] LABS: Appearance Urine Clear; Color Urine Yellow; Glucose Urine UA 500 mg/dL (Negative); Leukocyte Esterase Urine Negative (Negative); Nitrite Urine Negative (Negative); Urine Blood Negative (Negative); Urine Ketones Negative (Negative); Urine Protein Negative (Neg-Trace)
--- NOTE | 2022-04-11 15:36 | PM.EVENT ---
Event Note Date of Service: 04/11/22 Event Note: Called to see patient and request of nursing secondary to complaints of a cold left foot. Arterial runoff completed which demonstrates a clot in the left popliteal artery. Case discussed with Dr. Carbajal (vascular ) who recommended heparin drip. This was discussed with Ortho who requested no bolus and agreed to heparin drip. Patient will be kept NPO after midnight for Dr. Carbajal's intervention in a.m.
[2022-04-11 16:00] LABS: Glucose, Whole Blood 183 mg/dL (60-115)
[2022-04-11] MEDS: Aspirin 325 MG TABLET PO ×2 (16:21→20:33)
[2022-04-11 16:24] LABS: Hematocrit 36.3 % (37.0-47.0); Hemoglobin 12.2 g/dl (12.0-16.0); Mean Corpuscular HGB Conc 33.6 g/dl (31.0-35.0); Mean Corpuscular Hemoglobin 30.3 pg (27.0-33.0); Mean Corpuscular Volume 90.3 fL (80.0-98.0); Mean Platelet Volume 9.4 fL (9.4-12.3); Platelet Count 327 X10*3/uL (160-400); Red Blood Count 4.02 X10*6/uL (4.20-5.50); Red Cell Distribution Width 14.3 % (11.0-16.0); White Blood Count 16.6 X10*3/uL (4.8-10.8)
[2022-04-11 16:54] LABS: INTERNATIONAL NORM RATIO 0.9 (0.9-1.1); Prothrombin Time 10.6 SEC (10.0-13.1)
[2022-04-11 16:58] LABS: PTT Heparin Drip 22.5 SEC (53-77.9)
[2022-04-11] MEDS: Heparin Sodium,Porcine/1/2NS 25,000 UNIT/250 ML IV.SOLN 14.38 UNIT IVCONT (17:58)
[2022-04-11 19:37] LABS: Glucose, Whole Blood 226 mg/dL (60-115)
[2022-04-11] MEDS: traZODone HCL 50 MG TABLET PO (20:34)
[2022-04-11] MEDS: Insulin Glargine,Hum.rec.anlog 100 UNIT/ML 10 ML VIAL 60 UNIT SUBCUT (20:36)
[2022-04-12] VITALS (12 sets, daily range): BP systolic 112–154; BP diastolic 53–76; PULSE 85–107; RESP 12–21; TEMP 36.3–36.8; O2SAT 94–99
[2022-04-12 00:39] LABS: PTT Heparin Drip 46.1 SEC (53-77.9)
[2022-04-12] MEDS: Heparin Sodium,Porcine 5,000 UNIT/ML VIAL 4100 UNIT IVPUSH (00:53)
[2022-04-12] MEDS: HYDROmorphone HCl 0.5 MG/0.5 ML SYRINGE 0.25 MG IVPUSH ×2 (02:15→15:54)
[2022-04-12 05:58] LABS: MANUAL DIFF FLAG NO
--- NOTE | 2022-04-12 06:00 | P.CDIC_ITS ---
CDI Concurrent Query Documentation Clarification: PHYSICIAN'S DOCUMENTATION REQUEST Date of Query: 04/12/22 0600 Patient Name: Laury Meade Admit Date: 04/10/22 Dear Doctor, A review of the medical record indicates additional documentation may be needed. Please review below and update the documentation accordingly. Risk Factors/Clinical Indicators/Treatments Nurings note Height & Weight - BMI 41.2 5' 2 in height. Extreme obesity class III. If possible, please provide an associated diagnosis related to the abnormal BMI, such as: For a BMI >= 40: * Overweight * Obesity * Due to excess calories * Drug induced * Due to other cause * Severe or Morbid Obesity * With alveolar hypoventilation * Without alveolar hypoventilation Or: * BMI is not significant * Other (please specify) * Unable to determine Use of terms such as suspected, likely, concern for, or probable (associated with a specific diagnosis that is being evaluated, monitored, or treated as if it exists) are acceptable and can be coded in the inpatient setting, when documented at the time of discharge. Thank you, Mari Haley [facility], CDIS Extension: [phone] Please use your independent medical judgment in providing your response. THIS QUERY IS PART OF THE PERMANENT MEDICAL RECORD
--- NOTE | 2022-04-12 06:00 | MHC.CDI.CONC ---
CDI Concurrent Query Documentation Clarification: PHYSICIAN'S DOCUMENTATION REQUEST Date of Query: 04/12/22 0600 Patient Name: Laury Meade Admit Date: 04/10/22 Dear Doctor, A review of the medical record indicates additional documentation may be needed. Please review below and update the documentation accordingly. Risk Factors/Clinical Indicators/Treatments Nurings note Height & Weight - BMI 41.2 5' 2 in height. Extreme obesity class III. If possible, please provide an associated diagnosis related to the abnormal BMI, such as: For a BMI >= 40: Overweight Obesity Due to excess calories Drug induced Due to other cause Severe or Morbid Obesity With alveolar hypoventilation Without alveolar hypoventilation Or: BMI is not significant Other (please specify) Unable to determine Use of terms such as suspected, likely, concern for, or probable (associated with a specific diagnosis that is being evaluated, monitored, or treated as if it exists) are acceptable and can be coded in the inpatient setting, when documented at the time of discharge. Thank you, Mari Haley [facility], CDIS Extension: [phone] Please use your independent medical judgment in providing your response. THIS QUERY IS PART OF THE PERMANENT MEDICAL RECORD
[2022-04-12 06:07] LABS: Basophils Percent Auto 0.3 % (0-2); Eosinophils Percent Auto 0.2 % (0-4); Hematocrit 36.1 % (37.0-47.0); Hemoglobin 12.2 g/dl (12.0-16.0); Imm Gran Abs Auto 0.06 X10*3/uL (0.00-0.03); Imm Gran Pct Auto 0.4 % (0.0-0.4); Lymphocytes Absolute Auto 2.2 X10*3/uL (1.2-4.9); Lymphocytes Percent Auto 14.9 % (20-40); Mean Corpuscular HGB Conc 33.8 g/dl (31.0-35.0); Mean Corpuscular Hemoglobin 30.6 pg (27.0-33.0); Mean Corpuscular Volume 90.5 fL (80.0-98.0); Mean Platelet Volume 9.8 fL (9.4-12.3); Monocytes Absolute Auto 1.3 X10*3/uL (0.1-1.2); Monocytes Percent Auto 8.6 % (2-11); Neutrophils Absolute Auto 11.1 x10*3/uL (2.0-8.3); Neutrophils Percent Auto 75.6 % (45-73); Platelet Count 303 X10*3/uL (160-400); Red Blood Count 3.99 X10*6/uL (4.20-5.50); Red Cell Distribution Width 14.4 % (11.0-16.0); White Blood Count 14.7 X10*3/uL (4.8-10.8)
[2022-04-12 06:21] LABS: Prothrombin Time 11.4 SEC (10.0-13.1)
[2022-04-12 06:43] LABS: Anion Gap 14 (12-20); Blood Urea Nitrogen 14 mg/dL (9-16); Calcium 8.7 mg/dL (8.4-10.2); Carbon Dioxide 27 mmol/L (22-29); Chloride 100 mmol/L (96-108); Creatinine Clr Calc Pharmacy 117.2; Estimated Glomerular Filt Rate > 60; Glucose Fasting 207 mg/dL (60-99); Potassium 3.8 mmol/L (3.3-5.1); Sodium 137 mmol/L (135-145)
[2022-04-12 07:29] LABS: Glucose, Whole Blood 199 mg/dL (60-115)
[2022-04-12 08:03] LABS: PTT Heparin Drip 65.2 SEC (53-77.9)
[2022-04-12] MEDS: hydroCHLOROthiazide 25 MG TABLET PO (08:12)
[2022-04-12] MEDS: Aspirin 325 MG TABLET PO ×2 (08:12→19:59)
[2022-04-12] MEDS: lisinopriL 20 MG TABLET PO (08:12)
[2022-04-12] MEDS: Docusate Sodium 100 MG CAPSULE PO ×2 (08:12→19:59)
[2022-04-12] MEDS: Celecoxib 200 MG CAPSULE PO ×2 (08:13→19:59)
[2022-04-12] MEDS: oxyCODONE HCl ER 10 MG TAB.ER.12H PO ×2 (08:13→20:00)
[2022-04-12] MEDS: 0.9 % Sodium Chloride Flush 3 ML SYRINGE IVFLUSH (08:13)
[2022-04-12] MEDS: Lactated Ringers 1,000 ML 100 ML IVCONT ×2 (08:14→10:59)
--- NOTE | 2022-04-12 08:21 | MHC.CM.PN ---
EMR REVIEWED, PT FOUND TO HAVE L POPLITEAL CLOT, PT ON HEPARIN DRIP AND PLAN FOR INTERVENTION W/DR DIAZ TODAY, NO PLAN FOR D/C TODAY, [facility] UPDATED VIA [facility]. CM WILL CONT TO FOLLOW D/C NEEDS.
[2022-04-12] MEDS: Heparin Sodium,Porcine/1/2NS 25,000 UNIT/250 ML IV.SOLN 16.43 UNIT IVCONT (08:29)
--- NOTE | 2022-04-12 09:16 | PM.PNORT ---
Subjective Subjective Date of Service: 04/12/22 Interval history: POD2 s/p RTKA. Patient is resting in bed comfortably. Pain has decreased. Speaking with Dr. Carbajal at bedside about treatment plan for blood clot management. Physical Exam Vital Signs: Vital Signs: Last Vital Signs Temp 98.2 F 04/12/22 04:00 Pulse 94 04/12/22 04:00 Resp 18 04/12/22 04:00 BP 113/68 04/12/22 04:00 Pulse Ox 96 04/12/22 04:00 O2 Del Method 04/12/22 04:00 O2 Flow Rate 2 04/10/22 23:41 BMI result Body Mass Index 38.2 Const: General: cooperative, healthy appearing and no acute distress Resp: Effort & Inspection: normal respiratory effort and able to speak in complete sentences Cardio: Rate: regular rate Peripheral pulses: Peripheral pulses 2+ throughout GI: Palpation (GI): Soft to palpation Skin: Lesions: no lesions Rashes: no rashes Extrem: Other: Left knee Aquacel is clean, dry, and intact. Able to flex and extend slightly. Able to dorsiflex and plantarflex. Procedures Date of Service Date of Service: 04/12/22 Progress Note: A&P Assessment and plan (1) Status post total knee replacement: Status: Acute Assessment and Plan: Continue pain mgmnt Continue dvt management per Dr. Carbajal Continue PT for RTKA Dispo planning- PT, pain mgmnt, DVT management (2) PAD (peripheral artery disease): Status: Acute Time Spent With Patient Time: Total time spent is greater than 50% in coordination of care (as documented) at patient's floor/unit and/or counseling patient: Quality Stroke Does the patient have a stroke diagnosis?: No VTE Prior VTE?: No VTE Risk Level:: Medical - moderate - high VTE Device Contraindication: N/A - Device Ordered VTE Drug Contraindication: N/A - Med Ordered
--- NOTE | 2022-04-12 10:10 | PC.NURSE ---
Patient c/o dizziness at this time, stating I just don't feel right , denied chest pain and SOB. At that time, neuros intact alert and oriented x4, answering all questions appropriately, speech clear, gaze normal, no visual changes, face symmetrical without facial palsy, equal driver guard strength with no evidence of drift, tongue does not deviate, absent limb ataxia. BP taken and was found to be 82/52, HR- 95, oxygen saturation 98%, Respirations-18. Bhavik Rodriguez provider paged at 1025. Second large bore IV catheter obtained and 1L bolus of LR administered. Vitals reassessed at 1100, BP-114/58, HR-85. In addition, patient denied any more dizziness and was asymptomatic.
--- NOTE | 2022-04-12 10:14 | P.CONGS_ITS ---
History of Present Illness Consult details Consult date: 04/12/22 Narrative: 56-year-old female well known to me for prior history of peripheral vascular disease. She had undergone intervention nearly 6 months prior. Most recently she underwent left total knee replacement approximately 2 days prior. Postoperatively she seemed to be doing well and then her foot felt cold. She was subsequently worked up and found to have acute thrombus in the popliteal artery. She has been placed on a heparin drip. She appears to be doing much better today. Motor and sensation has been intact throughout this entire process. Review of Systems Review of Systems: Yes all other systems are reviewed and are negative Constitutional: Constitutional: Reports no additional constitutional complaints ENT: Reports Normal hearing present Cardiovascular: Cardiovascular: Denies chest pain, Denies chest pain at rest, Denies chest pain with activity and Denies pedal edema Respiratory: Respiratory: Denies cough Gastrointestinal: Gastrointestinal: Denies abdominal pain Musculoskeletal: Musculoskeletal: Reports abnormal gait, Reports muscle cramps and Denies radiating pain into limb Integumentary/Breasts: Skin/Breast: Denies skin ulcer and Denies wounds Neurologic: Reports Normal hearing present and Reports abnormal gait Psychiatric: Psychiatric: Reports no additional psychiatric complaints [facility] Past Medical History Medical History Arthritis COVID-19 vaccine series completed Diabetes Hypertension Peripheral artery disease Family History Family History Father Aneurysm Mother No problems noted. Surgical History Surgical History H/O colonoscopy History of intravascular stent placement Hx of breast biopsy Hx of elbow surgery Hx of tubal ligation Hx of wisdom tooth extraction Social History Social History Household Members: Significant Other Housing: House Are you a primary personal caregiver to a significant other at home: No Do you presently have visiting nurse or other home services: No Patient Tobacco Use Status: Current everyday Tobacco user Tobacco use type: Cigarette Cigarette Packs Per Day: 0.5 Cigarettes Per Day: 10.0 Years Smoked: 40 Patient Interested in Nicotine Replacement: No Patient Given Instructions on How to Stop Smoking: No Second Hand Smoke Exposure: No Use of substances other than those prescribed or required for medical reasons: Yes Substance Use Type: Marijuana Substance Use Frequency: Occasionally Last Used Substance: Days (ago) Currently Displaying Signs/Symptoms of Drug Intoxication Withdrawal: No Any prior treatment program specific to substance use: No Have you been hit, kicked, punched, or otherwise hurt by someone within the past year? If so, by whom?: No Do you feel safe in your current relationship?: No Is there a partner from a previous relationship who is making you feel unsafe now?: No Are you made to feel afraid or neglected: No Are you DNR?: No Advance Directives: No Advance Directives Information Provided: No (patient declined at this time) Advance Directives on File: No Do you have thoughts of harming others: None Do you have a plan to hurt others: No Plan Recently lost weight without trying: No How much weight loss: Not applicable Eating poorly because of decreased appetite: No Nutrition screen score: 0 Nutrition Risks: No Nutritional Risk Patient : No : No Poor oral hygiene: No service: No Current occupational status: employed 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 Allergies Allergy/AdvReac Type Severity Reaction Status Date / Time No Known Allergies Allergy Verified 02/15/22 15:19 Active Medications: Current Medications Acetaminophen (Acetaminophen 325 Mg Tablet) 650 mg PO Q6H PRN PRN Reason: Pain, Mild (Pain Scale 1-3) Last Admin: 04/10/22 17:09 Dose: 650 mg Aspirin (Aspirin 325 Mg Tablet) 325 mg PO BID [facility] Last Admin: 04/12/22 08:12 Dose: 325 mg Celecoxib (Celecoxib 200 Mg Capsule) 200 mg PO BID [facility] Last Admin: 04/12/22 08:13 Dose: 200 mg Dextrose (Dextrose 50 % 25 Gm/50 Ml Syringe) 25 gm IVPUSH Q15M PRN; Protocol PRN Reason: per Hypoglycemia Standing Ord. Docusate Sodium (Docusate Sodium 100 Mg Capsule) 100 mg PO BID [facility] Last Admin: 04/12/22 08:12 Dose: 100 mg Glucose (Glucose Gel 15 Gm Gel..Gram.) 15 gm PO Q15M PRN; Protocol PRN Reason: per Hypoglycemia Standing Ord. Heparin Sodium (Porcine) (Heparin Sodium,Porcine 5,000 Unit/Ml Vial) 4,100 unit 40 unit/kg (4100 unit) IVPUSH PROTOCOL BOLUS PRN; Protocol PRN Reason: 40 unit/kg - Heparin Protocol Last Admin: 04/12/22 00:53 Dose: 4,100 unit Heparin Sodium (Porcine) (Heparin Sodium,Porcine 5,000 Unit/Ml Vial) 8,200 unit 80 unit/kg (8200 unit) IVPUSH PROTOCOL BOLUS PRN; Protocol PRN Reason: 80 unit/kg - Heparin Protocol Hydrochlorothiazide (Hydrochlorothiazide 25 Mg Tablet) 25 mg PO DAILY [facility] Last Admin: 04/12/22 08:12 Dose: 25 mg Hydromorphone HCl (Hydromorphone Hcl 0.5 Mg/0.5 Ml Syringe) 0.25 mg IVPUSH Q4H PRN; Protocol PRN Reason: Pain, Severe (Pain Scale 7-10) Last Admin: 04/12/22 02:15 Dose: 0.25 mg Lactated Ringer's (Lr) 1,000 mls @ 100 mls/hr IVCONT .Q10H [facility] Last Admin: 04/12/22 08:14 Dose: 100 mls/hr Heparin Sodium/Sodium Chloride (Heparin Sodium,Porcine/1/2ns) 25,000 unit in 250 mls @ 0 mls/hr IVCONT .Q0M [facility]; Protocol Last Admin: 04/12/22 08:29 Dose: 16 units/kg/hr, 16.43 mls/hr Insulin Glargine (Insulin Glargine,Hum.Rec.Anlog 100 Unit/Ml 10 Ml Vial) 60 unit SUBCUT BEDTIME [facility] Last Admin: 04/11/22 20:36 Dose: 60 unit Insulin Human Lispro (Insulin Lispro 100 Unit/Ml 3 Ml Vial) 0 unit SUBCUT QIDACHS [facility]; Protocol Last Admin: 04/12/22 08:13 Dose: Not Given Lisinopril (Lisinopril 20 Mg Tablet) 20 mg PO DAILY [facility] Last Admin: 04/12/22 08:12 Dose: 20 mg Ondansetron HCl (Ondansetron Hcl 4 Mg/2 Ml Vial) 4 mg IVPUSH Q8H PRN PRN Reason: Nausea and Vomiting Oxycodone HCl (Oxycodone Hcl Er 10 Mg Tab.Er.12h) 10 mg PO BID [facility] Last Admin: 04/12/22 08:13 Dose: 10 mg Oxycodone HCl (Oxycodone Hcl Immed Release 5 Mg Tablet) 10 mg PO Q3H PRN PRN Reason: Pain, Moderate (Pain Scale 4-6 Sodium Chloride (0.9 % Sodium Chloride Flush 3 Ml Syringe) 3 ml IVFLUSH QSHIFT BRANDEN Last Admin: 04/12/22 08:13 Dose: 3 ml Trazodone HCl (Trazodone Hcl 50 Mg Tablet) 50 mg PO BEDTIME PRN PRN Reason: insomnia Last Admin: 04/11/22 20:34 Dose: 50 mg Home Medications Medication Instructions Recorded Confirmed Last Taken Type glipizide 2.5 mg tablet, extended 2.5 mg PO QAM 04/06/21 04/03/22 04/09/22 History release 24 hr metformin 1,000 mg tablet 1,000 mg PO BID 04/06/21 04/03/22 04/09/22 History empagliflozin 10 mg tablet 10 mg PO QAM 12/07/21 04/03/22 04/09/22 History (Jardiance) aspirin 81 mg tablet,delayed 81 mg PO QAM 04/03/22 04/03/22 04/03/22 History release insulin glargine 100 60 unit subcut BEDTIME 04/03/22 04/03/22 04/09/22 History unit-lixisenatide 33 mcg/mL subcutaneous pen ([place] 100/33) lisinopril 20 1 tab PO QAM 04/03/22 04/03/22 04/09/22 History mg-hydrochlorothiazide 25 mg tablet acetaminophen 300 mg-codeine 30 mg 1 tab PO DAILY PRN Pain 04/05/22 04/07/22 History tablet atorvastatin 10 mg tablet 1 tab PO DAILY 04/10/22 04/10/22 04/09/22 History Physical Exam Vital Signs: Vital Signs: Last Vital Signs Temp 98.2 F 04/12/22 04:00 Pulse 94 04/12/22 04:00 Resp 18 04/12/22 04:00 BP 113/68 04/12/22 04:00 Pulse Ox 96 04/12/22 04:00 O2 Del Method 04/12/22 04:00 O2 Flow Rate 2 04/10/22 23:41 BMI result Body Mass Index 38.2 Const: General: cooperative, healthy appearing and comfortable Orientation/consciousness: oriented to person, oriented to place and oriented to time HEENT: Head: Yes normal to inspection Neck: Neck: Yes normal visual inspection Carotids: no bruits Chest: Chest palpation & inspection: normal inspection of the chest Resp: Effort & Inspection: normal respiratory effort and able to speak in complete sentences Auscultation: clear to auscultation bilaterally, no crackles, no rales, no rhonchi and no wheezes Cardio: Rate: regular rate Rhythm: regular rhythm Heart sounds: S1 normal heart sound present and S2 normal heart sound present Bruits: no carotid bruits Peripheral pulses: dorsalis pedis present ( Bilateral DP signals) GI: Inspection: Yes normal to inspection Skin: Wounds: no wounds Hair: normal Neuro: General: oriented to person, oriented to place and oriented to time Cranial nerves: Yes CN's II-XII intact bilaterally and Yes Normal hearing present Cognition (Neuro): normal cognition Motor exam (neuro): 5/5 motor strength present throughout Extrem: Other: venous exam: No significant superficial varicosities or spider telangiectasias, minimal edema General: No clubbing, No cyanosis and No edema Psych: Appearance: grossly normal Mental Status: mental status grossly normal Speech and movement: Normal speech and movement present Results Labs Result diagrams: 04/12/22 05:39 04/12/22 05:34 Labs: Abnormal lab results 04/11/22 04/11/22 04/11/22 Range/Units 11:06 15:28 16:14 WBC 16.6 H (4.8-10.8) X10*3/uL RBC 4.02 L (4.20-5.50) X10*6/uL Hct 36.3 L (37.0-47.0) % Neut % (Auto) (45-73) % Lymph % (Auto) (20-40) % [place] # (Auto) (0.1-1.2) X10*3/uL Abs Immat Gran (auto) (0.00-0.03) X10*3/uL Absolute Neuts (auto) (2.0-8.3) x10*3/uL aPTT Heparin Protocol (53-77.9) SEC POC Glucose 226 H 183 H (60-115) mg/dL Fasting Glucose (60-99) mg/dL Urine Glucose (UA) (Negative) mg/dL 04/11/22 04/11/22 04/11/22 Range/Units 16:14 19:27 Unknown WBC (4.8-10.8) X10*3/uL RBC (4.20-5.50) X10*6/uL Hct (37.0-47.0) % Neut % (Auto) (45-73) % Lymph % (Auto) (20-40) % [place] # (Auto) (0.1-1.2) X10*3/uL Abs Immat Gran (auto) (0.00-0.03) X10*3/uL Absolute Neuts (auto) (2.0-8.3) x10*3/uL aPTT Heparin Protocol 22.5 L (53-77.9) SEC POC Glucose 226 H (60-115) mg/dL Fasting Glucose (60-99) mg/dL Urine Glucose (UA) 500 H (Negative) mg/dL 04/12/22 04/12/22 04/12/22 Range/Units 00:16 05:34 05:39 WBC 14.7 H (4.8-10.8) X10*3/uL RBC 3.99 L (4.20-5.50) X10*6/uL Hct 36.1 L (37.0-47.0) % Neut % (Auto) 75.6 H (45-73) % Lymph % (Auto) 14.9 L (20-40) % [place] # (Auto) 1.3 H (0.1-1.2) X10*3/uL Abs Immat Gran (auto) 0.06 H (0.00-0.03) X10*3/uL Absolute Neuts (auto) 11.1 H (2.0-8.3) x10*3/uL aPTT Heparin Protocol 46.1 L D (53-77.9) SEC POC Glucose (60-115) mg/dL Fasting Glucose 207 H (60-99) mg/dL Urine Glucose (UA) (Negative) mg/dL 04/12/22 Range/Units 07:24 WBC (4.8-10.8) X10*3/uL RBC (4.20-5.50) X10*6/uL Hct (37.0-47.0) % Neut % (Auto) (45-73) % Lymph % (Auto) (20-40) % [place] # (Auto) (0.1-1.2) X10*3/uL Abs Immat Gran (auto) (0.00-0.03) X10*3/uL Absolute Neuts (auto) (2.0-8.3) x10*3/uL aPTT Heparin Protocol (53-77.9) SEC POC Glucose 199 H (60-115) mg/dL Fasting Glucose (60-99) mg/dL Urine Glucose (UA) (Negative) mg/dL Short CBC 04/11/22 04/12/22 Range/Units 16:14 05:39 WBC 16.6 H 14.7 H (4.8-10.8) X10*3/uL Hgb 12.2 12.2 (12.0-16.0) g/dl Hct 36.3 L 36.1 L (37.0-47.0) % Plt Count 327 303 (160-400) X10*3/uL BMP 04/12/22 05:34 Sodium 137 Potassium 3.8 Chloride 100 Carbon Dioxide 27 BUN 14 Creatinine 0.61 Calcium 8.7 Urine 04/11/22 Range/Units Unknown Urine Color Yellow Urine Appearance Clear Urine pH 6.0 (5.0-8.0) Ur Specific [place] 1.010 (1.005-1.025) Urine Protein Negative (Neg-Trace) mg/dL Urine Glucose (UA) 500 H (Negative) mg/dL All other labs normal. Imaging Additional studies: US - acute left popliteal artery occlusion Assessment and Plan (1) PAD (peripheral artery disease): Status: Acute Plan Patient has an acute occlusion of left popliteal artery. I have reviewed the patient's arterial testing. the patient would benefit from a left leg e ndovascular peripheral angiogram with possible angioplasty, stent, and/or atherectomy, possible thrombolysis. This has been discussed in detail with the patient along with risks, benefits, and complications. This includes but is not limited to bleeding, infection, heart attack, need for emergent surgical repair, limb ischemia, blood vessel damage, bleeding, puncture, kidney injury, bruising, allergic reaction, and skin reaction. The patient demonstrates a clear understanding. We will schedule MAURICE please note over 60 minutes was required in the care of this patient including direct patient care record assessment management of services imaging review coordination between Orthopedics and the hospitalist service, and coordination of this urgent procedure. Procedures Date of Service Date of Service: 04/12/22
--- NOTE | 2022-04-12 10:31 | PC.NURSE ---
Nabor Dent MD at bedside at this time.
[2022-04-12] MEDS: Lactated Ringers 500 ML 999 ML IV (10:59)
[2022-04-12] MEDS: traMADoL HCL 50 MG TABLET PO (11:05)
[2022-04-12 11:11] LABS: Glucose, Whole Blood 181 mg/dL (60-115)
--- NOTE | 2022-04-12 12:00 | PC.NURSE ---
Report given to RN in Interventional Radiology previous to procedure @1200. Patient alert and oriented x4. Patient seen leaving floor at 1211 via hospital bed with Heparin gtt and LR gtt infusing. RN aware.
--- NOTE | 2022-04-12 12:00 | PC.NURSE ---
Patient to IR at this time
--- NOTE | 2022-04-12 12:33 | PC.NURSE ---
patient noted to have inverted T waves. This is an ekg change from yesterday. Dr. Carbajal notified and orders received to obtain 12 Lead EKG post operatively. procedure to go as scheduled as she has an ischemic leg.
--- NOTE | 2022-04-12 14:15 | P.PNIM_ITS ---
Subjective Subjective Date of Service: 04/12/22 Interval History: movement and circulation intact overnight. Review of Systems denies chest pain Denies shortness of breath Denies nausea vomiting diarrhea Denies fever chills Physical Exam Vital Signs: Vital Signs: Last Vital Signs Temp 98.2 F 04/12/22 04:00 Pulse 94 04/12/22 04:00 Resp 18 04/12/22 04:00 BP 113/68 04/12/22 04:00 Pulse Ox 96 04/12/22 04:00 O2 Del Method 04/12/22 04:00 O2 Flow Rate 2 04/10/22 23:41 BMI result Body Mass Index 38.2 Const: Other: no acute issues Resp: Other: clear to auscultation bilaterally no rales rhonchi or wheezes Cardio: Other: no S4; positive S1-S2; no S3 murmurs rubs or gallops Extrem: Other: left foot and ankle cold to touch; sensation and movement intact Objective Data Active Medications Acetaminophen (Acetaminophen 325 Mg Tablet) 650 mg PO Q6H PRN PRN Reason: Pain, Mild (Pain Scale 1-3) Last Admin: 04/10/22 17:09 Dose: 650 mg Documented By: DAWIT Aspirin (Aspirin 325 Mg Tablet) 325 mg PO BID [facility] Last Admin: 04/12/22 08:12 Dose: 325 mg Documented By: OLEG Celecoxib (Celecoxib 200 Mg Capsule) 200 mg PO BID [facility] Last Admin: 04/12/22 08:13 Dose: 200 mg Documented By: OLEG Dextrose (Dextrose 50 % 25 Gm/50 Ml Syringe) 25 gm IVPUSH Q15M PRN; Protocol PRN Reason: per Hypoglycemia Standing Ord. Docusate Sodium (Docusate Sodium 100 Mg Capsule) 100 mg PO BID [facility] Last Admin: 04/12/22 08:12 Dose: 100 mg Documented By: OLEG Glucose (Glucose Gel 15 Gm Gel..Gram.) 15 gm PO Q15M PRN; Protocol PRN Reason: per Hypoglycemia Standing Ord. Heparin Sodium (Porcine) (Heparin Sodium,Porcine 5,000 Unit/Ml Vial) 4,100 unit 40 unit/kg (4100 unit) IVPUSH PROTOCOL BOLUS PRN; Protocol PRN Reason: 40 unit/kg - Heparin Protocol Last Admin: 04/12/22 00:53 Dose: 4,100 unit Documented By: MEHRDAD Heparin Sodium (Porcine) (Heparin Sodium,Porcine 5,000 Unit/Ml Vial) 8,200 unit 80 unit/kg (8200 unit) IVPUSH PROTOCOL BOLUS PRN; Protocol PRN Reason: 80 unit/kg - Heparin Protocol Hydromorphone HCl (Hydromorphone Hcl 0.5 Mg/0.5 Ml Syringe) 0.25 mg IVPUSH Q4H PRN; Protocol PRN Reason: Pain, Severe (Pain Scale 7-10) Last Admin: 04/12/22 02:15 Dose: 0.25 mg Documented By: MEHRDAD Lactated Ringer's (Lr) 1,000 mls @ 100 mls/hr IVCONT .Q10H [facility] Last Admin: 04/12/22 10:59 Dose: 100 mls/hr Documented By: OLEG Heparin Sodium/Sodium Chloride (Heparin Sodium,Porcine/1/2ns) 25,000 unit in 250 mls @ 0 mls/hr IVCONT .Q0M BRANDEN; Protocol Last Admin: 04/12/22 08:29 Dose: 16 units/kg/hr, 16.43 mls/hr Documented By: OLEG Co-signed By: PAZ Alteplase, Recombinant 5 mg/ (Sodium Chloride) 500 mls @ 50 mls/hr INTRAARTER .Q10H [facility] Stop: 04/12/22 23:44 Heparin Sodium/Sodium Chloride (Heparin Sodium,Porcine/1/2ns) 25,000 unit in 250 mls @ 5 mls/hr INTRAARTCO .Q24H [facility] Insulin Glargine (Insulin Glargine,Hum.Rec.Anlog 100 Unit/Ml 10 Ml Vial) 60 unit SUBCUT BEDTIME [facility] Last Admin: 04/11/22 20:36 Dose: 60 unit Documented By: MEHRDDA Insulin Human Lispro (Insulin Lispro 100 Unit/Ml 3 Ml Vial) 0 unit SUBCUT QIDACHS [facility]; Protocol Last Admin: 04/12/22 11:05 Dose: Not Given Documented By: OLEG Non-Admin Reason: NPO Ondansetron HCl (Ondansetron Hcl 4 Mg/2 Ml Vial) 4 mg IVPUSH Q8H PRN PRN Reason: Nausea and Vomiting Oxycodone HCl (Oxycodone Hcl Er 10 Mg Tab.Er.12h) 10 mg PO BID [facility] Last Admin: 04/12/22 08:13 Dose: 10 mg Documented By: OLEG Oxycodone HCl (Oxycodone Hcl Immed Release 5 Mg Tablet) 10 mg PO Q3H PRN PRN Reason: Pain, Moderate (Pain Scale 4-6 Sodium Chloride (0.9 % Sodium Chloride Flush 3 Ml Syringe) 3 ml IVFLUSH QSHIFT [facility] Last Admin: 04/12/22 08:13 Dose: 3 ml Documented By: OLEG Tramadol HCl (Tramadol Hcl 50 Mg Tablet) 50 mg PO Q4H PRN PRN Reason: Pain, Moderate (Pain Scale 4-6 Last Admin: 04/12/22 11:05 Dose: 50 mg Documented By: OLEG Trazodone HCl (Trazodone Hcl 50 Mg Tablet) 50 mg PO BEDTIME PRN PRN Reason: insomnia Last Admin: 04/11/22 20:34 Dose: 50 mg Documented By: MEHRDAD Labs CBC & Chem 7: 04/12/22 05:39 04/12/22 05:34 Labs: Laboratory Results - last 24 hr 04/11/22 04/11/22 04/11/22 15:28 16:14 16:14 MCV 90.3 MCH 30.3 MCHC 33.6 RDW 14.3 Plt Count 327 MPV 9.4 Immature Gran % (Auto) Neut % (Auto) Lymph % (Auto) [place] % (Auto) Eos % (Auto) Baso % (Auto) Lymph # (Auto) [place] # (Auto) Eos # (Auto) Baso # (Auto) Abs Immat Gran (auto) Absolute Neuts (auto) Absolute Nucleated RBC 0.000 Nucleated RBC % (auto) 0.0 PT 10.6 INR 0.9 aPTT Heparin Protocol 22.5 L Anion Gap Estim Creat Clear Calc Estimated GFR POC Glucose 183 H Fasting Glucose Calcium Urine Color Urine Appearance Urine pH Ur Specific [place] Urine Protein Urine Glucose (UA) Urine Ketones Urine Blood Urine Nitrite Ur Leukocyte Esterase 04/11/22 04/11/22 04/12/22 19:27 Unknown 00:16 MCV MCH MCHC RDW Plt Count MPV Immature Gran % (Auto) Neut % (Auto) Lymph % (Auto) [place] % (Auto) Eos % (Auto) Baso % (Auto) Lymph # (Auto) [place] # (Auto) Eos # (Auto) Baso # (Auto) Abs Immat Gran (auto) Absolute Neuts (auto) Absolute Nucleated RBC Nucleated RBC % (auto) PT INR aPTT Heparin Protocol 46.1 L D Anion Gap Estim Creat Clear Calc Estimated GFR POC Glucose 226 H Fasting Glucose Calcium Urine Color Yellow Urine Appearance Clear Urine pH 6.0 Ur Specific [place] 1.010 Urine Protein Negative Urine Glucose (UA) 500 H Urine Ketones Negative Urine Blood Negative Urine Nitrite Negative Ur Leukocyte Esterase Negative 04/12/22 04/12/22 04/12/22 05:34 05:34 05:39 MCV 90.5 MCH 30.6 MCHC 33.8 RDW 14.4 Plt Count 303 MPV 9.8 Immature Gran % (Auto) 0.4 Neut % (Auto) 75.6 H Lymph % (Auto) 14.9 L [place] % (Auto) 8.6 Eos % (Auto) 0.2 Baso % (Auto) 0.3 Lymph # (Auto) 2.2 [place] # (Auto) 1.3 H Eos # (Auto) 0.0 Baso # (Auto) 0.0 Abs Immat Gran (auto) 0.06 H Absolute Neuts (auto) 11.1 H Absolute Nucleated RBC 0.000 Nucleated RBC % (auto) 0.0 PT 11.4 INR 1.0 aPTT Heparin Protocol Anion Gap 14 Estim Creat Clear Calc 117.2 Estimated GFR > 60 POC Glucose Fasting Glucose 207 H Calcium 8.7 Urine Color Urine Appearance Urine pH Ur Specific [place] Urine Protein Urine Glucose (UA) Urine Ketones Urine Blood Urine Nitrite Ur Leukocyte Esterase 04/12/22 04/12/22 04/12/22 07:16 07:24 11:07 MCV MCH MCHC RDW Plt Count MPV Immature Gran % (Auto) Neut % (Auto) Lymph % (Auto) [place] % (Auto) Eos % (Auto) Baso % (Auto) Lymph # (Auto) [place] # (Auto) Eos # (Auto) Baso # (Auto) Abs Immat Gran (auto) Absolute Neuts (auto) Absolute Nucleated RBC Nucleated RBC % (auto) PT INR aPTT Heparin Protocol 65.2 D Anion Gap Estim Creat Clear Calc Estimated GFR POC Glucose 199 H 181 H Fasting Glucose Calcium Urine Color Urine Appearance Urine pH Ur Specific [place] Urine Protein Urine Glucose (UA) Urine Ketones Urine Blood Urine Nitrite Ur Leukocyte Esterase Assessment and Plan (1) Thrombosis of left popliteal artery: Status: Acute (2) PAD (peripheral artery disease): Status: Acute (3) Diabetes: Status: Acute Plan 56-year-old female status post left total knee replacement (pod 2) developed cool left foot; arterial runoff consistent with left popliteal thrombus. From an orthopedic standpoint stable 1. Left popliteal thrombus - continue heparin drip - to OR today with Dr. Carbajal 2. Status post left TKA - as per Ortho 3.HTN - acceptable control on current therapies - adjust as indicated 4.Diabetes type 2 - acceptable control on home insulin regimen - continue lispro correctional scale heparin full code Quality Stroke Does the patient have a stroke diagnosis?: No VTE Prior VTE?: No VTE Risk Level:: Medical - moderate - high VTE Device Contraindication: N/A - Device Ordered VTE Drug Contraindication: N/A - Med Ordered
[2022-04-12] MEDS: 0.9 % Sodium Chloride 1,000 ML 50 ML IVCONT (14:30)
[2022-04-12] MEDS: Heparin Sodium,Porcine/1/2NS 25,000 UNIT/250 ML IV.SOLN 5 UNIT INTRAARTCO (14:30)
[2022-04-12] MEDS: iohexoL 300 MG/ML 100 ML INFUS..BTL IV (14:31)
--- NOTE | 2022-04-12 14:55 | ECG_ITS ---
Test Reason : rhythm check post procedure Blood Pressure : / mmHG Vent. Rate : 082 BPM Atrial Rate : 082 BPM P-R Int : 148 ms QRS Dur : 088 ms QT Int : 442 ms P-R-T Axes : 019 -11 252 degrees QTc Int : 516 ms Normal sinus rhythm ST & T wave abnormality, consider inferior ischemia ST & T wave abnormality, consider anterolateral ischemia Prolonged QT Abnormal ECG When compared with ECG of 12-APR-2022 14:48, No significant change was found Referred By: Jai Fierro Electronically Signed By:JV COTTON
--- NOTE | 2022-04-12 14:56 | P.PNCC_ITS ---
Subjective Subjective Date of Service: 04/12/22 Interval History: Mrs. Meade is transfer to the ICU this afternoon after aortogram and insertion of left lower extremity thrombolysis catheter by Dr. Carbajal. The patient is a 56-year-old woman with past medical history of peripheral vascular disease, diabetes, hypertension, obesity, and arthritis. About 6 months ago, the patient underwent a left SFA atherectomy with stent, and left popliteal and proximal SFA angioplasties.? Two days ago, patient underwent left total knee replacement here by Dr. Rodriguez.? Postoperatively she seemed to be doing well and then her foot felt cold.? Work up found an acute thrombus in the popliteal artery.? She was been placed on a heparin drip with some clinical improvement.? Motor and sensation were intact throughout this entire process. Today the patient underwent aortogram and insertion of left lower extremity thrombolysis catheter by Dr. Carbajal.? Preop, she had no pulses in the left foot.? The procedure was uncomplicated.? The patient was transferred to the ICU postoperatively.? On arrival here, the patient looks well, she is fully awake, alert, oriented, and appropriate.? Heart rate 89, sinus rhythm.? Blood pressure 139/68.? The patient is breathing easy with sat 98% on room air.? Her left lower extremity below the knee down to the foot is cool although by no means ice cold.? It is pale but has some color in it.? It has full motion and a slight numbness below the knee, compared to the right leg.? She has no palpable or dopplerable pulses in the foot.? Her popliteal pulses easily dopplerable.? The toes have some capillary refill, albeit very slow, at least 4-5 secs. Of note, Dr. Carbajal indicated to me that there was some concern about her rhythm strip tracing immediately preprocedure.? He felt that the procedure had to be done emergently and so went ahead.? He asked me to check an EKG.? An EKG done postoperatively here in the ICU shows diffuse T-wave inversion in all leads.? In contrast, her preoperative EKG on March 29 was essentially normal.? The patient is completely asymptomatic from an ACS point of view. Labs drawn in the ICU postoperatively show a troponin of 51, and a lactic acid of 0.7.? Preop hemoglobin was 12 0.2, preop PTT was 65. IMPRESSION: 1. Acute popliteal thrombus with severely ischemic left leg.? S/P aortogram and insertion of left lower extremity thrombolysis catheter by Dr. Carbajal.? Not clear at this time whether the leg will be salvaged, but at least it?s got some warmth and color this afternoon. 2. Status post left total knee replacement. 3. She appears to have had an ischemic event. ?Can?t say when.? Currently she?s on Heparin 500u/hr, the tPA, plus aspirin.? I added statin. ?First trop is borderline, I?ll repeat it in 3 hours. ?Consulted with Dr. Scales.? ? Echo tomorrow. She?ll go back to the OR for re-angio tomorrow. Critical Care Time (minutes): 0 Physical Exam Vital Signs: Vital Signs: Last Vital Signs Temp 98.2 F 04/12/22 04:00 Pulse 94 04/12/22 04:00 Resp 18 04/12/22 04:00 BP 113/68 04/12/22 04:00 Pulse Ox 96 04/12/22 04:00 O2 Del Method 04/12/22 04:00 O2 Flow Rate 2 04/10/22 23:41 BMI result Body Mass Index 38.2 Objective Data Labs CBC & Chem 7: 04/12/22 05:39 04/12/22 05:34 Labs: Laboratory Results - last 24 hr 04/11/22 04/11/22 04/11/22 15:28 16:14 16:14 WBC 16.6 H RBC 4.02 L Hgb 12.2 Hct 36.3 L MCV 90.3 MCH 30.3 MCHC 33.6 RDW 14.3 Plt Count 327 MPV 9.4 Immature Gran % (Auto) Neut % (Auto) Lymph % (Auto) [place] % (Auto) Eos % (Auto) Baso % (Auto) Lymph # (Auto) [place] # (Auto) Eos # (Auto) Baso # (Auto) Abs Immat Gran (auto) Absolute Neuts (auto) Absolute Nucleated RBC 0.000 Nucleated RBC % (auto) 0.0 PT 10.6 INR 0.9 aPTT Heparin Protocol 22.5 L Sodium Potassium Chloride Carbon Dioxide Anion Gap BUN Creatinine Estim Creat Clear Calc Estimated GFR POC Glucose 183 H Fasting Glucose Calcium Urine Color Urine Appearance Urine pH Ur Specific [place] Urine Protein Urine Glucose (UA) Urine Ketones Urine Blood Urine Nitrite Ur Leukocyte Esterase 04/11/22 04/11/22 04/12/22 19:27 Unknown 00:16 WBC RBC Hgb Hct MCV MCH MCHC RDW Plt Count MPV Immature Gran % (Auto) Neut % (Auto) Lymph % (Auto) [place] % (Auto) Eos % (Auto) Baso % (Auto) Lymph # (Auto) [place] # (Auto) Eos # (Auto) Baso # (Auto) Abs Immat Gran (auto) Absolute Neuts (auto) Absolute Nucleated RBC Nucleated RBC % (auto) PT INR aPTT Heparin Protocol 46.1 L D Sodium Potassium Chloride Carbon Dioxide Anion Gap BUN Creatinine Estim Creat Clear Calc Estimated GFR POC Glucose 226 H Fasting Glucose Calcium Urine Color Yellow Urine Appearance Clear Urine pH 6.0 Ur Specific [place] 1.010 Urine Protein Negative Urine Glucose (UA) 500 H Urine Ketones Negative Urine Blood Negative Urine Nitrite Negative Ur Leukocyte Esterase Negative 04/12/22 04/12/22 04/12/22 05:34 05:34 05:39 WBC 14.7 H RBC 3.99 L Hgb 12.2 Hct 36.1 L MCV 90.5 MCH 30.6 MCHC 33.8 RDW 14.4 Plt Count 303 MPV 9.8 Immature Gran % (Auto) 0.4 Neut % (Auto) 75.6 H Lymph % (Auto) 14.9 L [place] % (Auto) 8.6 Eos % (Auto) 0.2 Baso % (Auto) 0.3 Lymph # (Auto) 2.2 [place] # (Auto) 1.3 H Eos # (Auto) 0.0 Baso # (Auto) 0.0 Abs Immat Gran (auto) 0.06 H Absolute Neuts (auto) 11.1 H Absolute Nucleated RBC 0.000 Nucleated RBC % (auto) 0.0 PT 11.4 INR 1.0 aPTT Heparin Protocol Sodium 137 Potassium 3.8 Chloride 100 Carbon Dioxide 27 Anion Gap 14 BUN 14 Creatinine 0.61 Estim Creat Clear Calc 117.2 Estimated GFR > 60 POC Glucose Fasting Glucose 207 H Calcium 8.7 Urine Color Urine Appearance Urine pH Ur Specific [place] Urine Protein Urine Glucose (UA) Urine Ketones Urine Blood Urine Nitrite Ur Leukocyte Esterase 04/12/22 04/12/22 04/12/22 07:16 07:24 11:07 WBC RBC Hgb Hct MCV MCH MCHC RDW Plt Count MPV Immature Gran % (Auto) Neut % (Auto) Lymph % (Auto) [place] % (Auto) Eos % (Auto) Baso % (Auto) Lymph # (Auto) [place] # (Auto) Eos # (Auto) Baso # (Auto) Abs Immat Gran (auto) Absolute Neuts (auto) Absolute Nucleated RBC Nucleated RBC % (auto) PT INR aPTT Heparin Protocol 65.2 D Sodium Potassium Chloride Carbon Dioxide Anion Gap BUN Creatinine Estim Creat Clear Calc Estimated GFR POC Glucose 199 H 181 H Fasting Glucose Calcium Urine Color Urine Appearance Urine pH Ur Specific [place] Urine Protein Urine Glucose (UA) Urine Ketones Urine Blood Urine Nitrite Ur Leukocyte Esterase Quality Stroke Does the patient have a stroke diagnosis?: No VTE Prior VTE?: No VTE Risk Level:: Medical - moderate - high VTE Device Contraindication: N/A - Device Ordered VTE Drug Contraindication: N/A - Med Ordered
--- NOTE | 2022-04-12 15:10 | W.PM.OPN ---
Operative Note Operative Note Date of Service: 04/12/22 Narrative: Angiogram report from [facility] Preoperative diagnosis: acute ischemia of left lower extremity Postoperative diagnosis: Same Procedure: 1. Ultrasound-guided right common femoral access 2. Aortogram with left lower extremity runoff 3. insertion of left lower extremity thrombolysis catheter Surgeon:Jorje Carbajal M.D., FACS, RPVI Roller Painter:None Anesthesia: Local with moderate conscious sedation. Total intraservice moderate sedation time was 42 minutes. I monitored the patient's level of consciousness and physiologic status continuously throughout the procedure. Specimens:none Drains:none Estimated blood loss: Less than 10 ml Implant: none Indications: 56-year-old female with a history of peripheral vascular disease underwent total knee replacement. She was discovered to have an ischemic leg postprocedure. She now presents for endovascular intervention. The patient has signed the informed consent after reviewing risks, complications, benefits, and alternatives previously discussed with the patient. The patient was given the opportunity to ask any additional questions or voice any concerns. All questions were answered to the patient's satisfaction. Procedure in detail: Patient was brought to the angiography suite prior to which a time-out was called for patient identification and site verification. Bilateral groins were prepped and draped in the standard surgical fashion. Under ultrasound guidance Right common femoral was punctured with micro puncture needle and wire. Subsequently a precision 4 [place] sheath was then placed. Bentson wire was advanced to the level of the aorta. 4 [place] Flush catheter was brought up and parked at the level of the renal arteries. Aortogram was then undertaken. Catheter was brought down to the level of the iliac bifurcation. Iliacs were subsequently imaged. Catheter was then brought in up and over to the left side SFA. Runoff study was then undertaken. it was recognized that there was a total occlusion in the popliteal. We advanced an 035 glidewire Advantage all the way down into the popliteal region. We then placed an up and over 6 [place] sheath. Through this we then advanced a [employer] multi holed side port infusion catheter 50 cm in length with a sheath length of 150. This was parked in to the tibial vessels below-knee extending on up into the SFA. Appropriate position was confirmed with fluoroscopic guidance. Once this was done we started infusing 5 units of heparin through the sheath and through the care [place] Sheri catheter 0.5 mg of tPA per hour. she was sent to ICU with stable vitals. Interpretation of films: 1. Ultrasound demonstrates appropriate femoral puncture. Image of which was saved. 2. Aortogram demonstrates appropriate caliber aorta. Minimal disease. Appropriate take-off of the renals. 3. Iliac images demonstrate No significant disease 4. left Leg Common femoral artery: no significant disease Profundus Femoris: No significant disease Superficial femoral artery: patent all the way down with patent stent Popliteal artery (p1,p2,p3): acute occlusion in popliteal Anterior tibial artery: not visualized Peroneal artery: not visualized Posterior tibial artery: not visualized Dorsalis pedis/plantar arch: incomplete Conclusion: 1. successful insertion thrombolysis catheter 2. Anticoagulation status: heparin at 500 units an hour/ tPA at 0.5 milligrams/hour This note is constructed using voice recognition software. While every effort has been made to ensure accuracy, museum informatics specialist errors may have been included. Thank you for allowing me to participate in the care of your patient. Yours sincerely, Jorje Carbajal MD, FACS, R.P.V.I.
--- NOTE | 2022-04-12 16:00 | PM.CNCAR ---
History of Present Illness History of Present Illness Date of Service: 04/12/22 Chief complaint: LT TKA Narrative: This is a cardiology consultation regarding an abnormal EKG. It seems that patient actually had left total knee replacement couple of days ago. Then she was doing okay but developed cold foot on the left side. Then workup at shown acute thrombus in the popliteal artery. Today, she was taken to OR by vascular surgery. Underwent insertion of left lower extremity thrombolytic catheter. Postoperatively, it seems she had an EKG than that showed anterior T inversions and that led to the cardiology consultation. Patient herself does not have any cardiac complaints like angina or any other symptoms in that regard. No known coronary disease. However, multiple cardiovascular risk factors including diabetes, hypertension, smoking. She states that apart from her knee pain she was generally getting along okay in the past. Review of Systems Review of Systems: Yes all other systems are reviewed and are negative Constitutional: Constitutional: Reports as per HPI Eyes: Eyes: Reports as per HPI ENT: Reports as per HPI Cardiovascular: Cardiovascular: Reports as per HPI, Denies acrocyanosis, Denies cool extremities, Denies chest pain, Denies leg edema, Denies lightheadedness, Denies palpitations and Denies dyspnea Respiratory: Respiratory: Reports as per HPI, Reports no additional respiratory complaints and Denies dyspnea Gastrointestinal: Gastrointestinal: Reports as per HPI and Reports no additional gastrointestinal complaints Genitourinary: Genitourinary: Reports as per HPI Musculoskeletal: Musculoskeletal: Reports no additional musculoskeletal complaints and Reports as per HPI Integumentary/Breasts: Skin/Breast: Reports system reviewed and no additional complaints, except as docu Neurologic: Reports system reviewed and no additional complaints, except as documented and Reports as per HPI Psychiatric: Psychiatric: Reports no additional psychiatric complaints and Reports as per HPI Endocrine: Endocrine: Reports no additional endocrine complaints, Reports as per HPI and Denies palpitations Hematologic/Lymphatic: Hematologic/Lymphatic: Reports no additional hematologic/lymphatic complaints and Reports as per HPI Allergic/Immunologic: Allergic/Immunologic: Reports no additional allergic/immunologic complaints and Reports as per HPI PMF Past Medical History Medical History (Updated 04/12/22 @ 16:04 by Geoff Scales MD) Arthritis COVID-19 vaccine series completed Diabetes Hypertension Peripheral artery disease Family History Family History Father Aneurysm Mother No problems noted. Surgical History Surgical History H/O colonoscopy History of intravascular stent placement Hx of breast biopsy Hx of elbow surgery Hx of tubal ligation Hx of wisdom tooth extraction Social History Social History Household Members: Significant Other Housing: House Are you a primary respiratory care assistant to a significant other at home: No Do you presently have visiting nurse or other home services: No Patient Tobacco Use Status: Current everyday Tobacco user Tobacco use type: Cigarette Cigarette Packs Per Day: 0.5 Cigarettes Per Day: 10.0 Years Smoked: 40 Patient Interested in Nicotine Replacement: No Patient Given Instructions on How to Stop Smoking: No Second Hand Smoke Exposure: No Use of substances other than those prescribed or required for medical reasons: Yes Substance Use Type: Marijuana Substance Use Frequency: Occasionally Last Used Substance: Days (ago) Currently Displaying Signs/Symptoms of Drug Intoxication Withdrawal: No Any prior treatment program specific to substance use: No Have you been hit, kicked, punched, or otherwise hurt by someone within the past year? If so, by whom?: No Do you feel safe in your current relationship?: No Is there a partner from a previous relationship who is making you feel unsafe now?: No Are you made to feel afraid or neglected: No Are you DNR?: No Advance Directives: No Advance Directives Information Provided: No (patient declined at this time) Advance Directives on File: No Do you have thoughts of harming others: None Do you have a plan to hurt others: No Plan Recently lost weight without trying: No How much weight loss: Not applicable Eating poorly because of decreased appetite: No Nutrition screen score: 0 Nutrition Risks: No Nutritional Risk Patient : No : No Poor oral hygiene: No service: No Current occupational status: employed Current [place] [employer]illing [employer] [facility] [place] Allergies Allergy/AdvReac Type Severity Reaction Status Date / Time No Known Allergies Allergy Verified 02/15/22 15:19 Active Medications: Current Medications Acetaminophen (Acetaminophen 325 Mg Tablet) 650 mg PO Q6H PRN PRN Reason: Pain, Mild (Pain Scale 1-3) Last Admin: 04/10/22 17:09 Dose: 650 mg Aspirin (Aspirin 325 Mg Tablet) 325 mg PO BID [facility] Last Admin: 04/12/22 08:12 Dose: 325 mg Atorvastatin Calcium (Atorvastatin Calcium 40 Mg Tablet) 40 mg PO BEDTIME BRANDEN Celecoxib (Celecoxib 200 Mg Capsule) 200 mg PO BID [facility] Last Admin: 04/12/22 08:13 Dose: 200 mg Dextrose (Dextrose 50 % 25 Gm/50 Ml Syringe) 25 gm IVPUSH Q15M PRN; Protocol PRN Reason: per Hypoglycemia Standing Ord. Docusate Sodium (Docusate Sodium 100 Mg Capsule) 100 mg PO BID [facility] Last Admin: 04/12/22 08:12 Dose: 100 mg Glucose (Glucose Gel 15 Gm Gel..Gram.) 15 gm PO Q15M PRN; Protocol PRN Reason: per Hypoglycemia Standing Ord. Heparin Sodium (Porcine) (Heparin Sodium,Porcine 5,000 Unit/Ml Vial) 4,100 unit 40 unit/kg (4100 unit) IVPUSH PROTOCOL BOLUS PRN; Protocol PRN Reason: 40 unit/kg - Heparin Protocol Last Admin: 04/12/22 00:53 Dose: 4,100 unit Heparin Sodium (Porcine) (Heparin Sodium,Porcine 5,000 Unit/Ml Vial) 8,200 unit 80 unit/kg (8200 unit) IVPUSH PROTOCOL BOLUS PRN; Protocol PRN Reason: 80 unit/kg - Heparin Protocol Hydromorphone HCl (Hydromorphone Hcl 0.5 Mg/0.5 Ml Syringe) 0.25 mg IVPUSH Q4H PRN; Protocol PRN Reason: Pain, Severe (Pain Scale 7-10) Last Admin: 04/12/22 15:54 Dose: 0.25 mg Lactated Ringer's (Lr) 1,000 mls @ 100 mls/hr IVCONT .Q10H [facility] Last Infusion: 04/12/22 14:30 Dose: Infused Heparin Sodium/Sodium Chloride (Heparin Sodium,Porcine/1/2ns) 25,000 unit in 250 mls @ 0 mls/hr IVCONT .Q0M [facility]; Protocol Last Titration: 04/12/22 14:30 Dose: Infused Alteplase, Recombinant 5 mg/ (Sodium Chloride) 500 mls @ 50 mls/hr INTRAARTER .Q10H [facility] Stop: 04/12/22 23:44 Last Admin: 04/12/22 14:30 Dose: 0.5 mg/hr, 50 mls/hr Heparin Sodium/Sodium Chloride (Heparin Sodium,Porcine/1/2ns) 25,000 unit in 250 mls @ 5 mls/hr INTRAARTCO .Q24H [facility] Last Admin: 04/12/22 14:30 Dose: 500 unit/hr, 5 mls/hr Sodium Chloride (Ns) 1,000 mls @ 100 mls/hr IVCONT .Q10H [facility] Last Admin: 04/12/22 14:30 Dose: 50 mls/hr Insulin Glargine (Insulin Glargine,Hum.Rec.Anlog 100 Unit/Ml 10 Ml Vial) 60 unit SUBCUT BEDTIME [facility] Last Admin: 04/11/22 20:36 Dose: 60 unit Insulin Human Lispro (Insulin Lispro 100 Unit/Ml 3 Ml Vial) 0 unit SUBCUT QIDACHS [facility]; Protocol Last Admin: 04/12/22 11:05 Dose: Not Given Ondansetron HCl (Ondansetron Hcl 4 Mg/2 Ml Vial) 4 mg IVPUSH Q8H PRN PRN Reason: Nausea and Vomiting Oxycodone HCl (Oxycodone Hcl Er 10 Mg Tab.Er.12h) 10 mg PO BID [facility] Last Admin: 04/12/22 08:13 Dose: 10 mg Oxycodone HCl (Oxycodone Hcl Immed Release 5 Mg Tablet) 10 mg PO Q3H PRN PRN Reason: Pain, Moderate (Pain Scale 4-6 Sodium Chloride (0.9 % Sodium Chloride Flush 3 Ml Syringe) 3 ml IVFLUSH QSHIFT [facility] Last Admin: 04/12/22 15:18 Dose: Not Given Tramadol HCl (Tramadol Hcl 50 Mg Tablet) 50 mg PO Q4H PRN PRN Reason: Pain, Moderate (Pain Scale 4-6 Last Admin: 04/12/22 11:05 Dose: 50 mg Trazodone HCl (Trazodone Hcl 50 Mg Tablet) 50 mg PO BEDTIME PRN PRN Reason: insomnia Last Admin: 04/11/22 20:34 Dose: 50 mg Home Medications Medication Instructions Recorded Confirmed Last Taken Type glipizide 2.5 mg tablet, extended 2.5 mg PO QAM 04/06/21 04/03/22 04/09/22 History release 24 hr metformin 1,000 mg tablet 1,000 mg PO BID 04/06/21 04/03/22 04/09/22 History empagliflozin 10 mg tablet 10 mg PO QAM 12/07/21 04/03/22 04/09/22 History (Jardiance) aspirin 81 mg tablet,delayed 81 mg PO QAM 04/03/22 04/03/22 04/03/22 History release insulin glargine 100 60 unit subcut BEDTIME 04/03/22 04/03/22 04/09/22 History unit-lixisenatide 33 mcg/mL subcutaneous pen (Soliqua 100/33) lisinopril 20 1 tab PO QAM 04/03/22 04/03/22 04/09/22 History mg-hydrochlorothiazide 25 mg tablet acetaminophen 300 mg-codeine 30 mg 1 tab PO DAILY PRN Pain 04/05/22 04/07/22 History tablet atorvastatin 10 mg tablet 1 tab PO DAILY 04/10/22 04/10/22 04/09/22 History Physical Exam Vital Signs: Vital Signs: Last Vital Signs Temp 98.2 F 04/12/22 04:00 Pulse 89 04/12/22 15:27 Resp 20 04/12/22 15:54 BP 139/68 04/12/22 15:27 Pulse Ox 98 04/12/22 15:27 O2 Del Method 04/12/22 15:27 O2 Flow Rate 2 04/10/22 23:41 BMI result Body Mass Index 38.2 Const: General: comfortable and no acute distress Orientation/consciousness: patient oriented x3 HEENT: Other: Unremarkable Head: Yes normal to inspection Neck: Neck: Yes normal visual inspection Chest: Chest palpation & inspection: normal inspection of the chest Resp: Auscultation: clear to auscultation bilaterally Cardio: Palpation: normal PMI Heart sounds: S1 normal heart sound present, S2 normal heart sound present, no gallops, no murmurs and no rubs GI: Palpation (GI): Soft to palpation Back/Spine/Pelvis: Other: unremarkable Skin: General skin exam: no rashes or lesions noted Neuro: General: patient oriented x3 Extrem: General: Yes normal to inspection Psych: Mental Status: mental status grossly normal Objective Labs and Meds Result diagrams: 04/12/22 05:39 04/12/22 05:34 Lab results: Laboratory Results - last 24 hr 08/04/11/22 04/11/22 15:28 16:14 16:14 WBC 16.6 H RBC 4.02 L Hgb 12.2 Hct 36.3 L MCV 90.3 MCH 30.3 MCHC 33.6 RDW 14.3 Plt Count 327 MPV 9.4 Immature Gran % (Auto) Neut % (Auto) Lymph % (Auto) Conway % (Auto) Eos % (Auto) Baso % (Auto) Lymph # (Auto) Conway # (Auto) Eos # (Auto) Baso # (Auto) Abs Immat Gran (auto) Absolute Neuts (auto) Absolute Nucleated RBC 0.000 Nucleated RBC % (auto) 0.0 PT 10.6 INR 0.9 aPTT Heparin Protocol 22.5 L Sodium Potassium Chloride Carbon Dioxide Anion Gap BUN Creatinine Estim Creat Clear Calc Estimated GFR POC Glucose 183 H Fasting Glucose Calcium 04/11/22 04/12/22 04/12/22 19:27 00:16 05:34 WBC RBC Hgb Hct MCV MCH MCHC RDW Plt Count MPV Immature Gran % (Auto) Neut % (Auto) Lymph % (Auto) Conway % (Auto) Eos % (Auto) Baso % (Auto) Lymph # (Auto) Conway # (Auto) Eos # (Auto) Baso # (Auto) Abs Immat Gran (auto) Absolute Neuts (auto) Absolute Nucleated RBC Nucleated RBC % (auto) PT 11.4 INR 1.0 aPTT Heparin Protocol 46.1 L D Sodium Potassium Chloride Carbon Dioxide Anion Gap BUN Creatinine Estim Creat Clear Calc Estimated GFR POC Glucose 226 H Fasting Glucose Calcium 04/12/22 04/12/22 04/12/22 05:34 05:39 07:16 WBC 14.7 H RBC 3.99 L Hgb 12.2 Hct 36.1 L MCV 90.5 MCH 30.6 MCHC 33.8 RDW 14.4 Plt Count 303 MPV 9.8 Immature Gran % (Auto) 0.4 Neut % (Auto) 75.6 H Lymph % (Auto) 14.9 L Conway % (Auto) 8.6 Eos % (Auto) 0.2 Baso % (Auto) 0.3 Lymph # (Auto) 2.2 Conway # (Auto) 1.3 H Eos # (Auto) 0.0 Baso # (Auto) 0.0 Abs Immat Gran (auto) 0.06 H Absolute Neuts (auto) 11.1 H Absolute Nucleated RBC 0.000 Nucleated RBC % (auto) 0.0 PT INR aPTT Heparin Protocol 65.2 D Sodium 137 Potassium 3.8 Chloride 100 Carbon Dioxide 27 Anion Gap 14 BUN 14 Creatinine 0.61 Estim Creat Clear Calc 117.2 Estimated GFR > 60 POC Glucose Fasting Glucose 207 H Calcium 8.7 04/12/22 04/12/22 07:24 11:07 WBC RBC Hgb Hct MCV MCH MCHC RDW Plt Count MPV Immature Gran % (Auto) Neut % (Auto) Lymph % (Auto) Conway % (Auto) Eos % (Auto) Baso % (Auto) Lymph # (Auto) Conway # (Auto) Eos # (Auto) Baso # (Auto) Abs Immat Gran (auto) Absolute Neuts (auto) Absolute Nucleated RBC Nucleated RBC % (auto) PT INR aPTT Heparin Protocol Sodium Potassium Chloride Carbon Dioxide Anion Gap BUN Creatinine Estim Creat Clear Calc Estimated GFR POC Glucose 199 H 181 H Fasting Glucose Calcium ECG Interpretation: EKG today with sinus rhythm and inverted Ts across the precordial leads as well as inferior leads. These changes are not seen in the previous EKG where the T-waves are all upright. Date on that EKG is . Assessment and Plan (1) Acute coronary syndrome: Status: Acute (2) Thrombosis of left popliteal artery: Status: Acute (3) Status post total knee replacement: Status: Acute (4) PAD (peripheral artery disease): Status: Acute Plan Based on the EKG, she has T inversions across the precordium which is a new finding. She could have LAD territory ischemia. Troponins are still pending. Hence not clear if she actually had an OK or not. Clinically, she has got no symptoms whatsoever. At this time, it seems that she is getting intra-arterial thrombolytic as well as IV heparin. That can be continued. Aspirin. Statins. Echocardiogram in the morning. May need diagnostic catheterization in due course, to be decided. Will follow with you. Discussed with Dr. Fierro. Procedures Date of Service Date of Service: 04/12/22
[2022-04-12 16:09] LABS: Glucose, Whole Blood 150 mg/dL (60-115)
[2022-04-12] MEDS: oxyCODONE HCl Immed Release 5 MG TABLET 10 MG PO (18:10)
--- NOTE | 2022-04-12 18:50 | PC.NURSE ---
PATIENT ARRIVED FROM IR AT 1437. PATIENT A&O X 4. PULSES CHECKED WITH IR NURSES BEDSIDE AND NO PULSES FELT OR FOUND WITH DOPPLAR TO LEFT PEDAL AND TIBIAL, FAINT POPLITEAL NOTED WITH DOPPLAR. SURGEON AWARE.
[2022-04-12 19:30] LABS: Fibrinogen > 700 MG/DL (259-690)
[2022-04-12 19:44] LABS: Lactic Acid 0.7 mmol/L (0.5-2.0)
[2022-04-12 20:02] LABS: Troponin-I High Sensitivity 51.9 ng/L (<3.5-17.0)
[2022-04-12] MEDS: Atorvastatin Calcium 40 MG TABLET PO (20:07)
[2022-04-12 20:42] LABS: PTT Heparin Drip 28.8 SEC (53-77.9)
[2022-04-12 21:19] LABS: Glucose, Whole Blood 225 mg/dL (60-115)
[2022-04-12] MEDS: Insulin Lispro 100 UNIT/ML 3 ML VIAL SUBCUT (21:31)
[2022-04-12] MEDS: Insulin Glargine,Hum.rec.anlog 100 UNIT/ML 10 ML VIAL 60 UNIT SUBCUT (21:32)
[2022-04-12] MEDS: HYDROmorphone HCl 0.5 MG/0.5 ML SYRINGE IVPUSH (21:34)
[2022-04-12 23:04] LABS: Fibrinogen > 700 MG/DL (259-690)
[2022-04-13] VITALS (23 sets, daily range): BP systolic 97–149; BP diastolic 45–71; PULSE 83–103; RESP 16–22; TEMP 36.3–37.4; O2SAT 91–98; BMI 38.2
[2022-04-13] MEDS: HYDROmorphone HCl 0.5 MG/0.5 ML SYRINGE IVPUSH ×4 (02:15→23:27)
[2022-04-13 02:54] LABS: Fibrinogen > 700 MG/DL (259-690)
[2022-04-13] MEDS: 0.9 % Sodium Chloride 1,000 ML 50 ML IVCONT (03:29)
[2022-04-13 04:45] LABS: MANUAL DIFF FLAG NO
[2022-04-13] MEDS: oxyCODONE HCl Immed Release 5 MG TABLET 10 MG PO ×2 (04:58→19:37)
[2022-04-13 05:02] LABS: Anion Gap 14 (12-20); Blood Urea Nitrogen 12 mg/dL (9-16); Calcium 8.5 mg/dL (8.4-10.2); Carbon Dioxide 26 mmol/L (22-29); Chloride 103 mmol/L (96-108); Creatinine Clr Calc Pharmacy 123.3; Estimated Glomerular Filt Rate > 60; Glucose Fasting 169 mg/dL (60-99); Potassium 3.7 mmol/L (3.3-5.1); Sodium 139 mmol/L (135-145)
[2022-04-13 05:19] LABS: Basophils Percent Auto 0.3 % (0-2); Eosinophils Absolute Auto 0.1 X10*3/uL (0.0-0.4); Eosinophils Percent Auto 0.6 % (0-4); Hemoglobin 11.3 g/dl (12.0-16.0); Imm Gran Abs Auto 0.06 X10*3/uL (0.00-0.03); Imm Gran Pct Auto 0.4 % (0.0-0.4); Lymphocytes Absolute Auto 2.5 X10*3/uL (1.2-4.9); Lymphocytes Percent Auto 16.8 % (20-40); Mean Corpuscular HGB Conc 33.2 g/dl (31.0-35.0); Mean Corpuscular Hemoglobin 30.1 pg (27.0-33.0); Mean Corpuscular Volume 90.7 fL (80.0-98.0); Mean Platelet Volume 9.8 fL (9.4-12.3); Monocytes Absolute Auto 1.1 X10*3/uL (0.1-1.2); Monocytes Percent Auto 7.7 % (2-11); Neutrophils Absolute Auto 10.9 x10*3/uL (2.0-8.3); Neutrophils Percent Auto 74.2 % (45-73); Platelet Count 264 X10*3/uL (160-400); Red Blood Count 3.75 X10*6/uL (4.20-5.50); Red Cell Distribution Width 14.5 % (11.0-16.0); White Blood Count 14.7 X10*3/uL (4.8-10.8)
[2022-04-13 05:36] LABS: PTT Heparin Drip 28.3 SEC (53-77.9)
--- NOTE | 2022-04-13 06:36 | PC.NURSE ---
PTT-HD this am is 28.3. Continue Heparin drip infusing at 5ml/hr per Dr. Carbajal. Will continue to monitor.
[2022-04-13 06:38] LABS: Fibrinogen > 700 MG/DL (259-690)
--- NOTE | 2022-04-13 07:00 | CA_ITS ---
Transthoracic Echocardiogram Patient (Last, First, Middle): Laury Meade A Gender: Female Date of : 1965 Age: 56 Procedure Date: 04/13/2022 Procedure Type: Transthoracic Echocardiogram Location: ICU Height: 162.56 cm Weight: 98.43 kg BSA: 2.03 m2 Heart Rate: bpm BP: 149 / 64 mmHg Communications Systems Engineer: Referring MD: Jai Fierro MD Symptoms: Abnormal ekg, t wave inversion, r/o MS Study Quality: Technically Difficult, fair with Contrast ECG Rhythm: Sinus Conclusions: - The left ventricular systolic function is normal. The calculated ejection fraction is 63% by biplane method. - No obvious valvular pathology seen on this study. Findings Procedure Information Contrast agent, definity, is being given per protocol without apparent complications. Left Ventricle Normal left ventricular cavity size. There is mildly increased left ventricular wall thickness. The left ventricular systolic function is normal. The calculated ejection fraction is 63% by biplane method. Diastolic function is normal for age. Wall motion assessment difficult in spite of using contrast. Grossly, no overt abnormality. Right Ventricle Normal right ventricular cavity size and systolic function. Atria Both atria are normal in size. Aortic Valve The aortic valve was not well visualized. There is no aortic valve stenosis. There is no aortic valve regurgitation. Mitral Valve The mitral valve appears normal. There is no mitral valve regurgitation. There is no mitral valve stenosis. Pulmonic Valve The pulmonic valve was not well visualized. Tricuspid Valve There is trace tricuspid valve regurgitation. There is no evidence of pulmonary hypertension. Great Vessels The asc aorta is normal in size. Venous The inferior vena cava is normal in size and collapses greater than 50% with inspiration. Pericardium/Pleural There is no evidence of pericardial effusion. Prior Study Comparison No prior study available for comparison. Recommendations, Care & Conclusions No obvious valvular pathology seen on this study. Measurements 2D Linear Measurements IVSd: 1.37 0.6-0.9/0.6-1.0 cm LVIDd: 3.59 3.9-5.3/4.2-5.9 cm LVIDd Index: 1.77 2.4-3.2/2.2-3.1 cm/m2 LVIDs: 2.29 2.0-3.6 cm LVPWd: 1.37 0.7-1.1 cm Ao Root: 3.00 2.1-3.5 cm LA Diam: 3.00 2.7-3.8/3.0-4.0 cm LAIDs Index: 1.48 1.5-2.3 cm/m2 LV Mass: 215.66 67-162/88-224 g LV Mass Index: 106.24 43-95/49-115 g/m2 LVOT Diam: 2.10 3.0+(-)1.3 cm 2D Systolic Function EF 4C: 58.00 >55% EF 2C: 66.80 >55% EF BiP: 62.50 >55% Mitral Valve MV Pk E: 0.75 MV PK A: 0.67 MV Decel Time: 169.00 E/A: 1.10 E'Lateral: 7.29 E'Medial: 5.55 E/E' Med: 13.50 E/E' Lat: 10.30 PHT: 50.00 MVA PHT: 4.40 Decel Oliver: 4.43 Aortic Valve AoV Pk Sukhwinder: 1.40 AoV Mn Sukhwinder: 0.80 AoV VTI: 0.22 AoV Pk Grad: 8.00 Aov Mn Grad: 3.00 YESICA Cont.VTI: 2.91 LVOT LVOT Pk Sukhwinder: 1.02 LVOT Mn Sukhwinder: 0.65 LVOT VTI: 0.19 LVOT Pk Grad: 4.00 LVOT Mn Grad: 2.00 LVOT Diam: 2.10 LVOT Area: 3.46 Diastolic Function MV Pk E: 0.75 MV Pk A: 0.67 E/A: 1.10 E'Medial: 5.55 E/E' Med: 13.50 E' Laterial: 7.29 E/E' Lat: 10.30 Right Ventricle TAPSE (mm): 30.00 TVS' Sukhwinder: 12.00 Tricuspid Valve TR Pk Sukhwinder: 2.01 TR Pk Grad: 16.00 RA Press: 3.00 RVSP: 19.00 Great Vessels Aorta Ao Root-2D: 3.00 2.0-3.7 cm Ao Asc: 3.40 2.1-3.4 cm Pulmonary Valve PV Pk Sukhwinder: 0.99 Peak PV Grad: 4.00 Updated in Other Vendor System with Status of Final Geoff Scales MD electronically signed on 04/14/2022 1:16:47 PM with status of Final
--- NOTE | 2022-04-13 08:39 | W.PM.OPN ---
Operative Note Operative Note Date of Service: 04/13/22 Narrative: Angiogram report from [facility] Preoperative diagnosis: Acute left lower extremity ischemia Postoperative diagnosis: Same Procedure: 1. Follow-up thrombolysis study 2. Left leg runoff Surgeon:Jorje Carbajal M.D., JOBY, RPVI Medical Staff Services Manager:None Anesthesia: Local only Specimens:none Drains:none Estimated blood loss: Less than 10 ml Implant: None Indications: This is a thrombolysis follow-up for left leg acute lower extremity ischemia after knee replacement. The patient has signed the informed consent after reviewing risks, complications, benefits, and alternatives previously discussed with the patient. The patient was given the opportunity to ask any additional questions or voice any concerns. All questions were answered to the patient's satisfaction. Procedure in detail: Patient was brought to the angiography suite prior to which a time-out was called for patient identification and site verification. Bilateral groins were prepped and draped in the standard surgical fashion. Through the prior Cragg Sheri catheter we did a follow-up angiogram. Contrast was instilled through the catheter. There was no significant improvement in flow. Catheter was then removed. We brought the sheath back to the ipsilateral side and the right common femoral was then image. Appropriate puncture was noted. StarClose closure device was then deployed. Adequate hemostasis was achieved. Exofin was used as a sterile dressing. Patient was informed of the findings and was urgently transferred to the PACU for emergency or Interpretation of films: 1. Left leg Common femoral artery: No significant disease Profundus Femoris: No significant disease Superficial femoral artery: Acute cut off at the distal SFA Popliteal artery (p1,p2,p3): Occluded Anterior tibial artery: Reconstitution by collaterals Peroneal artery: Occluded Posterior tibial artery: Occluded Dorsalis pedis/plantar arch: Not visualized Conclusion: 1. Patient will require emergency OR procedure. This note is constructed using voice recognition software. While every effort has been made to ensure accuracy, loss prevention manager errors may have been included. Thank you for allowing me to participate in the care of your patient. Yours sincerely, Jorje Carbajal MD, JOBY, R.P.V.I.
--- NOTE | 2022-04-13 09:00 | P.CONAN_ITS ---
HPI - Anesthesia Eval Consult details Narrative: EMERGENT exploration of left popliteal artery Patient was seen by cardiology and said to have new onset ischemia anterior due to EKG changes and positive troponins. Was going to get an echo today and possibly send for cardiac angio. Patient was having a thrombectomy for cold leg in interventional ridiology suite under local anesthesia. Was called to open room emergently for emergent thrombectomy of left popliteal artery vs bypass. Surgeon wants to wait for type and screen to come back before proceeding due to fact patient was just given heparin in the interventional radiology suite and is expecting blood loss. Surgeon will write an emergency note. Patient understands all risks, benefits, alternaitves and complications for anetshesia including the need for invasive monitoring, need for blood products, possible post-op ventilations and . Willing to proceed. [facility] Active Problems Active Problems: All Active Problems (Updated 04/12/22 @ 16:04 by Geoff Scales MD) Acute coronary syndrome (Acute) Diabetes (Acute) Thrombosis of left popliteal artery (Acute) Urinary frequency (Acute) Anxiety (Acute) Status post total knee replacement (Acute) PAD (peripheral artery disease) (Acute) Osteoarthritis of left knee (Acute) Past Medical History Medical History (Updated 04/12/22 @ 16:04 by Geoff Scales MD) Arthritis COVID-19 vaccine series completed Diabetes Hypertension Peripheral artery disease Family History Family History Father Aneurysm Mother No problems noted. Family history of problems with anesthesia: No Surgical History Surgical History H/O colonoscopy History of intravascular stent placement Hx of breast biopsy Hx of elbow surgery Hx of tubal ligation Hx of wisdom tooth extraction History of Problems with Anesthesia: No Social History Social History Household Members: Significant Other Housing: House Are you a primary adult care manager to a significant other at home: No Do you presently have visiting nurse or other home services: No Patient Tobacco Use Status: Current everyday Tobacco user Tobacco use type: Cigarette Cigarette Packs Per Day: 0.5 Cigarettes Per Day: 10.0 Years Smoked: 40 Patient Interested in Nicotine Replacement: No Patient Given Instructions on How to Stop Smoking: No Second Hand Smoke Exposure: No Use of substances other than those prescribed or required for medical reasons: Yes Substance Use Type: Marijuana Substance Use Frequency: Occasionally Last Used Substance: Days (ago) Currently Displaying Signs/Symptoms of Drug Intoxication Withdrawal: No Any prior treatment program specific to substance use: No Have you been hit, kicked, punched, or otherwise hurt by someone within the past year? If so, by whom?: No Do you feel safe in your current relationship?: No Is there a partner from a previous relationship who is making you feel unsafe now?: No Are you made to feel afraid or neglected: No Are you DNR?: No Advance Directives: No Advance Directives Information Provided: No (patient declined at this time) Advance Directives on File: No Do you have thoughts of harming others: None Do you have a plan to hurt others: No Plan Recently lost weight without trying: No How much weight loss: Not applicable Eating poorly because of decreased appetite: No Nutrition screen score: 0 Nutrition Risks: No Nutritional Risk Patient : No : No Poor oral hygiene: No service: No Current occupational status: employed 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[place] Meds Allergies Allergy/AdvReac Type Severity Reaction Status Date / Time No Known Allergies Allergy Verified 02/15/22 15:19 Active Medications: Current Medications Acetaminophen (Acetaminophen 325 Mg Tablet) 650 mg PO Q6H PRN PRN Reason: Pain, Mild (Pain Scale 1-3) Last Admin: 04/10/22 17:09 Dose: 650 mg Aspirin (Aspirin 325 Mg Tablet) 325 mg PO BID [facility] Last Admin: 04/12/22 19:59 Dose: 325 mg Atorvastatin Calcium (Atorvastatin Calcium 40 Mg Tablet) 40 mg PO BEDTIME [facility] Last Admin: 04/12/22 20:07 Dose: 40 mg Celecoxib (Celecoxib 200 Mg Capsule) 200 mg PO BID [facility] Last Admin: 04/12/22 19:59 Dose: 200 mg Dextrose (Dextrose 50 % 25 Gm/50 Ml Syringe) 25 gm IVPUSH Q15M PRN; Protocol PRN Reason: per Hypoglycemia Standing Ord. Docusate Sodium (Docusate Sodium 100 Mg Capsule) 100 mg PO BID [facility] Last Admin: 04/12/22 19:59 Dose: 100 mg Glucose (Glucose Gel 15 Gm Gel..Gram.) 15 gm PO Q15M PRN; Protocol PRN Reason: per Hypoglycemia Standing Ord. Heparin Sodium (Porcine) (Heparin Sodium,Porcine 5,000 Unit/Ml Vial) 4,100 unit 40 unit/kg (4100 unit) IVPUSH PROTOCOL BOLUS PRN; Protocol PRN Reason: 40 unit/kg - Heparin Protocol Last Admin: 04/12/22 00:53 Dose: 4,100 unit Heparin Sodium (Porcine) (Heparin Sodium,Porcine 5,000 Unit/Ml Vial) 8,200 unit 80 unit/kg (8200 unit) IVPUSH PROTOCOL BOLUS PRN; Protocol PRN Reason: 80 unit/kg - Heparin Protocol Hydromorphone HCl (Hydromorphone Hcl 0.5 Mg/0.5 Ml Syringe) 0.5 mg IVPUSH Q4H PRN; Protocol PRN Reason: Pain, Severe (Pain Scale 7-10) Last Admin: 04/13/22 07:06 Dose: 0.5 mg Heparin Sodium/Sodium Chloride (Heparin Sodium,Porcine/1/2ns) 25,000 unit in 250 mls @ 0 mls/hr IVCONT .Q0M BRANDEN; Protocol Last Titration: 04/12/22 14:30 Dose: Infused Alteplase, Recombinant 5 mg/ (Sodium Chloride) 500 mls @ 50 mls/hr INTRAARTER .Q10H BRANDEN Last Admin: 04/12/22 23:19 Dose: 0.5 mg/hr, 50 mls/hr Heparin Sodium/Sodium Chloride (Heparin Sodium,Porcine/1/2ns) 25,000 unit in 250 mls @ 5 mls/hr INTRAARTCO .Q24H [facility] Last Admin: 04/12/22 14:30 Dose: 500 unit/hr, 5 mls/hr Sodium Chloride (Ns) 1,000 mls @ 100 mls/hr IVCONT .Q10H [facility] Last Admin: 04/13/22 03:29 Dose: 50 mls/hr Cefazolin Sodium/Dextrose (Ancef) 2 gm in 50 mls @ 100 mls/hr IV PREOP ONE Stop: 04/13/22 09:03 Insulin Glargine (Insulin Glargine,Hum.Rec.Anlog 100 Unit/Ml 10 Ml Vial) 60 unit SUBCUT BEDTIME [facility] Last Admin: 04/12/22 21:32 Dose: 60 unit Insulin Human Lispro (Insulin Lispro 100 Unit/Ml 3 Ml Vial) 0 unit SUBCUT QIDACHS [facility]; Protocol Last Admin: 04/12/22 21:31 Dose: 1 unit Ondansetron HCl (Ondansetron Hcl 4 Mg/2 Ml Vial) 4 mg IVPUSH Q8H PRN PRN Reason: Nausea and Vomiting Oxycodone HCl (Oxycodone Hcl Er 10 Mg Tab.Er.12h) 10 mg PO BID [facility] Last Admin: 04/12/22 20:00 Dose: 10 mg Oxycodone HCl (Oxycodone Hcl Immed Release 5 Mg Tablet) 10 mg PO Q3H PRN PRN Reason: Pain, Moderate (Pain Scale 4-6 Last Admin: 04/13/22 04:58 Dose: 10 mg Sodium Chloride (0.9 % Sodium Chloride Flush 3 Ml Syringe) [address] [facility] Last Admin: 04/13/22 00:29 Dose: Not Given Tramadol HCl (Tramadol Hcl 50 Mg Tablet) 50 mg PO Q4H PRN PRN Reason: Pain, Moderate (Pain Scale 4-6 Last Admin: 04/12/22 11:05 Dose: 50 mg Trazodone HCl (Trazodone Hcl 50 Mg Tablet) 50 mg PO BEDTIME PRN PRN Reason: insomnia Last Admin: 04/11/22 20:34 Dose: 50 mg Home Medications Medication Instructions Recorded Confirmed Last Taken Type glipizide 2.5 mg tablet, extended 2.5 mg PO QAM 04/06/21 04/03/22 04/09/22 History release 24 hr metformin 1,000 mg tablet 1,000 mg PO BID 04/06/21 04/03/22 04/09/22 History empagliflozin 10 mg tablet 10 mg PO QAM 12/07/21 04/03/22 04/09/22 History (Jardiance) aspirin 81 mg tablet,delayed 81 mg PO QAM 04/03/22 04/03/22 04/03/22 History release insulin glargine 100 60 unit subcut BEDTIME 04/03/22 04/03/22 04/09/22 History unit-lixisenatide 33 mcg/mL subcutaneous pen (Soliqua 100/33) lisinopril 20 1 tab PO QAM 04/03/22 04/03/22 04/09/22 History mg-hydrochlorothiazide 25 mg tablet acetaminophen 300 mg-codeine 30 mg 1 tab PO DAILY PRN Pain 04/05/22 04/07/22 History tablet atorvastatin 10 mg tablet 1 tab PO DAILY 04/10/22 04/10/22 04/09/22 History Exam Exam Date and Time: April 13, 2022 0900 Height,Weight and Vital Signs: Height 5 ft 4.5 in Weight 102.7 kg Last Vital Signs Temp 97.4 F 04/12/22 20:00 Pulse 83 04/13/22 07:00 Resp 17 04/13/22 07:00 BP 149/64 H 04/13/22 07:00 Pulse Ox 94 04/13/22 07:00 O2 Del Method 04/13/22 07:00 O2 Flow Rate 2 04/10/22 23:41 Pertinent Lab Results Pertinent Lab Results: Laboratory Tests 03/30/22 03/30/22 04/03/22 06:47 06:47 12:35 WBC 15.2 H RBC 4.44 Hgb 13.7 Hct 41.5 MCV 93.5 MCH 30.9 MCHC 33.0 RDW 14.6 Plt Count 386 MPV 9.4 Immature Gran % (Auto) 0.5 H Neut % (Auto) 57.4 Lymph % (Auto) 32.2 [place] % (Auto) 7.3 Eos % (Auto) 2.1 Baso % (Auto) 0.5 Lymph # (Auto) 4.9 [place] # (Auto) 1.1 Eos # (Auto) 0.3 Baso # (Auto) 0.1 Abs Immat Gran (auto) 0.07 H Absolute Neuts (auto) 8.7 H Absolute Nucleated RBC 0.000 Nucleated RBC % (auto) 0.0 PT INR aPTT Heparin Protocol Fibrinogen Sodium 139 Potassium 4.6 Chloride 105 Carbon Dioxide 20 L Anion Gap 19 BUN 48 H Creatinine 0.86 Estim Creat Clear Calc TNP Estimated GFR > 60 POC Glucose Random Glucose 169 H Fasting Glucose Lactic Acid Calcium 9.7 Troponin I High Sens Urine Color Urine Appearance Urine pH Ur Specific [place] Urine Protein Urine Glucose (UA) Urine Ketones Urine Blood Urine Nitrite Ur Leukocyte Esterase Nasal Screen MRSA (PCR) NEGATIVE Nasal S. aureus Screen NEGATIVE Nasal MRSA/S.aureus Interp SEE NOTE COVID-19 ([facility]) COVID-19 Clin Com Blood Type Antibody Screen 0804/10/22 04/10/22 13:17 12:20 12:25 WBC RBC Hgb Hct MCV MCH MCHC RDW Plt Count MPV Immature Gran % (Auto) Neut % (Auto) Lymph % (Auto) [place] % (Auto) Eos % (Auto) Baso % (Auto) Lymph # (Auto) [place] # (Auto) Eos # (Auto) Baso # (Auto) Abs Immat Gran (auto) Absolute Neuts (auto) Absolute Nucleated RBC Nucleated RBC % (auto) PT INR aPTT Heparin Protocol Fibrinogen Sodium Potassium Chloride Carbon Dioxide Anion Gap BUN Creatinine Estim Creat Clear Calc Estimated GFR POC Glucose 130 H Random Glucose Fasting Glucose Lactic Acid Calcium Troponin I High Sens Urine Color Urine Appearance Urine pH Ur Specific [place] Urine Protein Urine Glucose (UA) Urine Ketones Urine Blood Urine Nitrite Ur Leukocyte Esterase Nasal Screen MRSA (PCR) Nasal S. aureus Screen Nasal MRSA/S.aureus Interp COVID-19 ([facility]) Negative COVID-19 Clin Com See Note Blood Type A Positive Antibody Screen NEGATIVE 04/10/22 04/11/22 04/11/22 12:36 05:27 05:27 WBC 16.5 H RBC 3.68 L Hgb 14.2 11.2 L D Hct 42.6 34.0 L D MCV 92.4 MCH 30.4 MCHC 32.9 RDW 14.4 Plt Count 317 MPV 10.0 Immature Gran % (Auto) 0.7 H Neut % (Auto) 74.9 H Lymph % (Auto) 16.2 L [place] % (Auto) 7.6 Eos % (Auto) 0.4 Baso % (Auto) 0.2 Lymph # (Auto) 2.7 [place] # (Auto) 1.3 H Eos # (Auto) 0.1 Baso # (Auto) 0.0 Abs Immat Gran (auto) 0.11 H Absolute Neuts (auto) 12.4 H Absolute Nucleated RBC 0.000 Nucleated RBC % (auto) 0.0 PT INR aPTT Heparin Protocol Fibrinogen Sodium 133 L Potassium 4.4 Chloride 98 Carbon Dioxide 24 Anion Gap 15 BUN 20 H D Creatinine 0.66 Estim Creat Clear Calc 113.1 Estimated GFR > 60 POC Glucose Random Glucose Fasting Glucose 165 H Lactic Acid Calcium 8.7 D Troponin I High Sens Urine Color Urine Appearance Urine pH Ur Specific [place] Urine Protein Urine Glucose (UA) Urine Ketones Urine Blood Urine Nitrite Ur Leukocyte Esterase Nasal Screen MRSA (PCR) Nasal S. aureus Screen Nasal MRSA/S.aureus Interp COVID-19 ([facility]) COVID-19 [facility] Blood Type Antibody Screen 04/11/22 04/11/22 04/11/22 07:10 11:06 15:28 WBC RBC Hgb Hct MCV MCH MCHC RDW Plt Count MPV Immature Gran % (Auto) Neut % (Auto) Lymph % (Auto) [place] % (Auto) Eos % (Auto) Baso % (Auto) Lymph # (Auto) [place] # (Auto) Eos # (Auto) Baso # (Auto) Abs Immat Gran (auto) Absolute Neuts (auto) Absolute Nucleated RBC Nucleated RBC % (auto) PT INR aPTT Heparin Protocol Fibrinogen Sodium Potassium Chloride Carbon Dioxide Anion Gap BUN Creatinine Estim Creat Clear Calc Estimated GFR POC Glucose 180 H 226 H 183 H Random Glucose Fasting Glucose Lactic Acid Calcium Troponin I High Sens Urine Color Urine Appearance Urine pH Ur Specific [place] Urine Protein Urine Glucose (UA) Urine Ketones Urine Blood Urine Nitrite Ur Leukocyte Esterase Nasal Screen MRSA (PCR) Nasal S. aureus Screen Nasal MRSA/S.aureus Interp COVID-19 ([facility]) COVID-19 [facility] Blood Type Antibody Screen 04/11/22 04/11/22 04/11/22 16:14 16:14 19:27 WBC 16.6 H RBC 4.02 L Hgb 12.2 Hct 36.3 L MCV 90.3 MCH 30.3 MCHC 33.6 RDW 14.3 Plt Count 327 MPV 9.4 Immature Gran % (Auto) Neut % (Auto) Lymph % (Auto) [place] % (Auto) Eos % (Auto) Baso % (Auto) Lymph # (Auto) [place] # (Auto) Eos # (Auto) Baso # (Auto) Abs Immat Gran (auto) Absolute Neuts (auto) Absolute Nucleated RBC 0.000 Nucleated RBC % (auto) 0.0 PT 10.6 INR 0.9 aPTT Heparin Protocol 22.5 L Fibrinogen Sodium Potassium Chloride Carbon Dioxide Anion Gap BUN Creatinine Estim Creat Clear Calc Estimated GFR POC Glucose 226 H Random Glucose Fasting Glucose Lactic Acid Calcium Troponin I High Sens Urine Color Urine Appearance Urine pH Ur Specific [place] Urine Protein Urine Glucose (UA) Urine Ketones Urine Blood Urine Nitrite Ur Leukocyte Esterase Nasal Screen MRSA (PCR) Nasal S. aureus Screen Nasal MRSA/S.aureus Interp COVID-19 ([facility]) COVID-19 [facility] Blood Type Antibody Screen 04/11/22 04/12/22 04/12/22 Unknown 00:16 05:34 WBC RBC Hgb Hct MCV MCH MCHC RDW Plt Count MPV Immature Gran % (Auto) Neut % (Auto) Lymph % (Auto) [place] % (Auto) Eos % (Auto) Baso % (Auto) Lymph # (Auto) [place] # (Auto) Eos # (Auto) Baso # (Auto) Abs Immat Gran (auto) Absolute Neuts (auto) Absolute Nucleated RBC Nucleated RBC % (auto) PT 11.4 INR 1.0 aPTT Heparin Protocol 46.1 L D Fibrinogen Sodium Potassium Chloride Carbon Dioxide Anion Gap BUN Creatinine Estim Creat Clear Calc Estimated GFR POC Glucose Random Glucose Fasting Glucose Lactic Acid Calcium Troponin I High Sens Urine Color Yellow Urine Appearance Clear Urine pH 6.0 Ur Specific [place] 1.010 Urine Protein Negative Urine Glucose (UA) 500 H Urine Ketones Negative Urine Blood Negative Urine Nitrite Negative Ur Leukocyte Esterase Negative Nasal Screen MRSA (PCR) Nasal S. aureus Screen Nasal MRSA/S.aureus Interp COVID-19 ([facility]) COVID-19 [facility] Blood Type Antibody Screen 04/12/22 04/12/22 04/12/22 05:34 05:39 07:16 WBC 14.7 H RBC 3.99 L Hgb 12.2 Hct 36.1 L MCV 90.5 MCH 30.6 MCHC 33.8 RDW 14.4 Plt Count 303 MPV 9.8 Immature Gran % (Auto) 0.4 Neut % (Auto) 75.6 H Lymph % (Auto) 14.9 L [place] % (Auto) 8.6 Eos % (Auto) 0.2 Baso % (Auto) 0.3 Lymph # (Auto) 2.2 [place] # (Auto) 1.3 H Eos # (Auto) 0.0 Baso # (Auto) 0.0 Abs Immat Gran (auto) 0.06 H Absolute Neuts (auto) 11.1 H Absolute Nucleated RBC 0.000 Nucleated RBC % (auto) 0.0 PT INR aPTT Heparin Protocol 65.2 D Fibrinogen Sodium 137 Potassium 3.8 Chloride 100 Carbon Dioxide 27 Anion Gap 14 BUN 14 Creatinine 0.61 Estim Creat Clear Calc 117.2 Estimated GFR > 60 POC Glucose Random Glucose Fasting Glucose 207 H Lactic Acid Calcium 8.7 Troponin I High Sens Urine Color Urine Appearance Urine pH Ur Specific [place] Urine Protein Urine Glucose (UA) Urine Ketones Urine Blood Urine Nitrite Ur Leukocyte Esterase Nasal Screen MRSA (PCR) Nasal S. aureus Screen Nasal MRSA/S.aureus Interp COVID-19 ([facility]) COVID-19 [facility] Blood Type Antibody Screen 04/12/22 04/12/22 04/12/22 07:24 11:07 16:05 WBC RBC Hgb Hct MCV MCH MCHC RDW Plt Count MPV Immature Gran % (Auto) Neut % (Auto) Lymph % (Auto) [place] % (Auto) Eos % (Auto) Baso % (Auto) Lymph # (Auto) [place] # (Auto) Eos # (Auto) Baso # (Auto) Abs Immat Gran (auto) Absolute Neuts (auto) Absolute Nucleated RBC Nucleated RBC % (auto) PT INR aPTT Heparin Protocol Fibrinogen Sodium Potassium Chloride Carbon Dioxide Anion Gap BUN Creatinine Estim Creat Clear Calc Estimated GFR POC Glucose 199 H 181 H 150 H Random Glucose Fasting Glucose Lactic Acid Calcium Troponin I High Sens Urine Color Urine Appearance Urine pH Ur Specific [place] Urine Protein Urine Glucose (UA) Urine Ketones Urine Blood Urine Nitrite Ur Leukocyte Esterase Nasal Screen MRSA (PCR) Nasal S. aureus Screen Nasal MRSA/S.aureus Interp COVID-19 ([facility]) COVID-19 [facility] Blood Type Antibody Screen 04/12/22 04/12/22 04/12/22 18:57 18:57 18:57 WBC RBC Hgb Hct MCV MCH MCHC RDW Plt Count MPV Immature Gran % (Auto) Neut % (Auto) Lymph % (Auto) [place] % (Auto) Eos % (Auto) Baso % (Auto) Lymph # (Auto) [place] # (Auto) Eos # (Auto) Baso # (Auto) Abs Immat Gran (auto) Absolute Neuts (auto) Absolute Nucleated RBC Nucleated RBC % (auto) PT INR aPTT Heparin Protocol Fibrinogen > 700 H Sodium Potassium Chloride Carbon Dioxide Anion Gap BUN Creatinine Estim Creat Clear Calc Estimated GFR POC Glucose Random Glucose Fasting Glucose Lactic Acid 0.7 Calcium Troponin I High Sens 51.9 H* Urine Color Urine Appearance Urine pH Ur Specific [place] Urine Protein Urine Glucose (UA) Urine Ketones Urine Blood Urine Nitrite Ur Leukocyte Esterase Nasal Screen MRSA (PCR) Nasal S. aureus Screen Nasal MRSA/S.aureus Interp COVID-19 ([facility]) COVID-19 [facility] Blood Type Antibody Screen 04/12/22 04/12/22 04/12/22 20:26 21:15 22:32 WBC RBC Hgb Hct MCV MCH MCHC RDW Plt Count MPV Immature Gran % (Auto) Neut % (Auto) Lymph % (Auto) [place] % (Auto) Eos % (Auto) Baso % (Auto) Lymph # (Auto) [place] # (Auto) Eos # (Auto) Baso # (Auto) Abs Immat Gran (auto) Absolute Neuts (auto) Absolute Nucleated RBC Nucleated RBC % (auto) PT INR aPTT Heparin Protocol 28.8 L D Fibrinogen > 700 H Sodium Potassium Chloride Carbon Dioxide Anion Gap BUN Creatinine Estim Creat Clear Calc Estimated GFR POC Glucose 225 H Random Glucose Fasting Glucose Lactic Acid Calcium Troponin I High Sens Urine Color Urine Appearance Urine pH Ur Specific [place] Urine Protein Urine Glucose (UA) Urine Ketones Urine Blood Urine Nitrite Ur Leukocyte Esterase Nasal Screen MRSA (PCR) Nasal S. aureus Screen Nasal MRSA/S.aureus Interp COVID-19 ([facility]) COVID-19 [facility] Blood Type Antibody Screen 04/12/22 04/13/22 04/13/22 22:32 02:37 04:40 WBC RBC Hgb Hct MCV MCH MCHC RDW Plt Count MPV Immature Gran % (Auto) Neut % (Auto) Lymph % (Auto) [place] % (Auto) Eos % (Auto) Baso % (Auto) Lymph # (Auto) [place] # (Auto) Eos # (Auto) Baso # (Auto) Abs Immat Gran (auto) Absolute Neuts (auto) Absolute Nucleated RBC Nucleated RBC % (auto) PT INR aPTT Heparin Protocol 28.3 L Fibrinogen > 700 H Sodium Potassium Chloride Carbon Dioxide Anion Gap BUN Creatinine Estim Creat Clear Calc Estimated GFR POC Glucose Random Glucose Fasting Glucose Lactic Acid Calcium Troponin I High Sens 48.0 H Urine Color Urine Appearance Urine pH Ur Specific [place] Urine Protein Urine Glucose (UA) Urine Ketones Urine Blood Urine Nitrite Ur Leukocyte Esterase Nasal Screen MRSA (PCR) Nasal S. aureus Screen Nasal MRSA/S.aureus Interp COVID-19 ([facility]) COVID-19 [facility] Blood Type Antibody Screen 04/13/22 04/13/22 04/13/22 04:40 04:40 06:21 WBC 14.7 H RBC 3.75 L Hgb 11.3 L Hct 34.0 L MCV 90.7 MCH 30.1 MCHC 33.2 RDW 14.5 Plt Count 264 MPV 9.8 Immature Gran % (Auto) 0.4 Neut % (Auto) 74.2 H Lymph % (Auto) 16.8 L [place] % (Auto) 7.7 Eos % (Auto) 0.6 Baso % (Auto) 0.3 Lymph # (Auto) 2.5 [place] # (Auto) 1.1 Eos # (Auto) 0.1 Baso # (Auto) 0.0 Abs Immat Gran (auto) 0.06 H Absolute Neuts (auto) 10.9 H Absolute Nucleated RBC 0.000 Nucleated RBC % (auto) 0.0 PT INR aPTT Heparin Protocol Fibrinogen > 700 H Sodium 139 Potassium 3.7 Chloride 103 Carbon Dioxide 26 Anion Gap 14 BUN 12 Creatinine 0.58 Estim Creat Clear Calc 123.3 Estimated GFR > 60 POC Glucose Random Glucose Fasting Glucose 169 H Lactic Acid Calcium 8.5 Troponin I High Sens Urine Color Urine Appearance Urine pH Ur Specific [place] Urine Protein Urine Glucose (UA) Urine Ketones Urine Blood Urine Nitrite Ur Leukocyte Esterase Nasal Screen MRSA (PCR) Nasal S. aureus Screen Nasal MRSA/S.aureus Interp COVID-19 ([facility]) COVID-19 Clin Com Blood Type Antibody Screen Airway Mallampati Class: III TM Dist: >3cm Neck ROM: Full Loose/Missing/Broken Teeth: Yes (#15 crown, no loose) Heart: [id number] Lungs: cta b/l Assessment and Plan Assessment Anesthesia Assessment: Anesthesia Plan Discussed and Chart Reviewed Final Anesthetic Review Family History of Problems with Anesthesia: No History of Problems with Anesthesia: No NPO: Yes ASA Class: IV and Emergency Final Preanesthetic Review: No Changes in Pt Med Stat, Meds/Allgs Chart Reviewed, Consent Obtained/Reviewed and Anes Risks/Benef Reviewed Patient Risk: High Procedure Risk: High Assessment/Block/Sedation in SS: Assess/Block/Sedation-SS Anesthetic Plan Anesthetic Plan: GA and Agree w/ Assess. and Plan Disposition: Standard PACU
[2022-04-13 09:16] LABS: Prothrombin Time 11.5 SEC (10.0-13.1)
[2022-04-13 09:17] LABS: Fibrinogen > 700 MG/DL (259-690)
[2022-04-13 09:19] LABS: Partial Thromboplastin Time 27.7 SEC (26.0-36.4)
[2022-04-13 09:24] LABS: Anion Gap 15 (12-20); Blood Urea Nitrogen 11 mg/dL (9-16); Calcium 8.7 mg/dL (8.4-10.2); Carbon Dioxide 27 mmol/L (22-29); Chloride 103 mmol/L (96-108); Creatinine Clr Calc Pharmacy 127.7; Estimated Glomerular Filt Rate > 60; Glucose Random 165 mg/dL (60-115); Sodium 141 mmol/L (135-145)
[2022-04-13 09:49] LABS: Glucose, Whole Blood 140 mg/dL (60-115)
--- NOTE | 2022-04-13 11:53 | MHC.CM.PN ---
Pt to OR from ICU for vascular intervention after tPA/heparin infusions for LE thrombus. Original plan was for a return to home however, pt may need more medical care. When appropriate, a PT eval may be helpful in determining pt's ability to manage at home vs STR. MD aware of this need: CM to follow
--- NOTE | 2022-04-13 14:21 | ECG_ITS ---
Test Reason : POST OP Blood Pressure : / mmHG Vent. Rate : 093 BPM Atrial Rate : 093 BPM P-R Int : 126 ms QRS Dur : 100 ms QT Int : 422 ms P-R-T Axes : 053 001 256 degrees QTc Int : 524 ms Sinus rhythm with frequent Premature ventricular complexes ST & T wave abnormality, consider inferior ischemia ST & T wave abnormality, consider anterolateral ischemia Prolonged QT Abnormal ECG When compared with ECG of 12-APR-2022 14:55, Premature ventricular complexes are now Present T wave inversion less evident in Lateral leads Referred By: Geoff Scales Electronically Signed By:JV COTTON
[2022-04-13 14:28] LABS: Base Excess Bedside Calculated 7 mmol/L (-3-3); Glucose, i-STAT 161 mg/dL (60-115); HCO3 Bedside Calculated 32 mmol/L (22-26); Hematocrit Bedside 31 %PCV (37-47); Hemoglobin Bedside 10.5 g/dL (12.0-16.0); Potassium Bedside 3.5 mmol/L (3.3-5.1); SO2 Bedside Calculated 100 %; Sodium Bedside 138 mmol/L (135-145); TCO2 Bedside 34 mmol/L (24-29); pCO2 Bedside 59 mmhg (35-48); pH Bedside 7.35 (7.35-7.45); pO2 Bedside 206 mmhg (83-108)
--- NOTE | 2022-04-13 14:35 | P.OP_ITS ---
Operative Note Operative Note Date of Service: 04/13/22 Narrative: Operative note by [facility] Preoperative diagnosis: Acute left lower extremity ischemia Postoperative diagnosis: Same Procedure:1. Left below-knee popliteal cutdown 2. Thrombectomy popliteal, SFA, anterior tibial, posterior tibial and peroneal arteries 3. Endarterectomy and Patch plasty closure of popliteal artery Surgeon:Jorje Carbajal M.D. [facility] Dba: Dr. Carreno, Dr. Duff Anesthesia: General Specimens: 2 Drains: None Estimated blood loss: 100 mL Indications: 56-year-old female who underwent knee replacement underwent thrombolysis of left lower extremity for an acute clot of the left lower extremity. It did not open up the thrombotic area. She was subsequently brought to the operating room for open intervention. She recognized that she was at a very high risk as there was concern for an acute DE. She elected to proceed forward. The patient has signed the informed consent after reviewing risks, complications, benefits, and alternatives previously discussed with the patient. The patient was given the opportunity to ask any additional questions or voice any concerns. All questions were answered to the patient's satisfaction. Procedure in detail: Patient was brought to the operating room prior to which a time-out was called for patient identification site verification left leg was prepped and draped in standard surgical fashion. Incision was carried out over the left leg at the below-knee popliteal area. We went just below the tibial tuberosity. In the groove of the gastrocs. We were able to dissect down. We were then able to identify the popliteal artery which was clearly thrombosed. We dissected down and found the takeoff of the anterior tibial and the tibioperoneal trunk. We were also able to dissect down further him the muscle head had to be resected of the gastroc in order to reach the posterior tibial. Once all 3 vessels were identified we then administered 5000 units a heparin. We placed a Jeremy proximally 1st a 3. Jeremy and we were able to get into the SFA approximately 30 cm up. And we thrombectomized the proximal SFA and poplite al. This was 1st done with an 3. Balloon and then a 4. Balloon. Once this was accomplished we turned our attention distally. We were able to direct at the balloon down the anterior tibial tibioperoneal trunk and posterior tibial and thrombectomized this as well. Each vessel was individually thrombectomized. Once this was all accomplished we tried a direct closure of the transverse arteriotomy. Once this was accomplished the signal had a drop-off proximally and distally. Once this was all accomplished we reopened tried again but it we had the same result at this time we dissected this free and we then made a longitudinal arteriotomy. We then had to endarterectomized the popliteal artery. We sutured on a XenoSure or patch. This was done in a circumferential manner with a 6 0 Prolene. Prior to closure we flushed the vessels clear. There was back bleeding an anterior bleeding. Once this was all accomplished adequate hemostasis was achieved. We were able to obtain a proximal and distal Doppler signal. At the end the case the foot had good capillary refill. Patient was returned to recovery with stable vitals. This note is constructed using voice recognition software. While every effort has been made to ensure accuracy, immigration services officer errors may have been included. Thank you for allowing me to participate in the care of your patient. Yours sincerely, Jorje Carbajal MD, FACS, R.P.V.I.
--- NOTE | 2022-04-13 15:08 | P.PNCA_ITS ---
Subjective Subjective Date of Service: 04/13/22 Interval history: Seen in the PACU. Denies any cardiac symptoms. Review of Systems Review of Systems Yes all other systems are reviewed and are negative Constitutional: Reports as per HPI Eyes: Reports as per HPI Reports as per HPI Cardiovascular: Reports as per HPI, Denies acrocyanosis, Denies cool extr emities, Denies chest pain, Denies leg edema, Denies lightheadedness, Denies palpitations and Denies dyspnea Respiratory: Reports as per HPI, Reports no additional respiratory complaints and Denies dyspnea Gastrointestinal: Reports as per HPI and Reports no additional gastrointestinal complaints Genitourinary: Reports as per HPI Musculoskeletal: Reports no additional musculoskeletal complaints and Reports as per HPI Skin/Breast: Reports system reviewed and no additional complaints, except as docu Reports system reviewed and no additional complaints, except as documented and Reports as per HPI Psychiatric: Reports no additional psychiatric complaints and Reports as per HPI Endocrine: Reports no additional endocrine complaints, Reports as per HPI and Denies palpitations Hematologic/Lymphatic: Reports no additional hematologic/lymphatic complaints and Reports as per HPI Allergic/Immunologic: Reports no additional allergic/immunologic complaints and Reports as per HPI Physical Exam Vital Signs: Last Vital Signs Temp 97.3 F 04/13/22 14:05 Pulse 93 04/13/22 14:35 Resp 20 04/13/22 14:35 BP 129/57 L 04/13/22 14:35 Pulse Ox 97 04/13/22 14:35 O2 Del Method 04/13/22 14:35 O2 Flow Rate 3 04/13/22 14:35 BMI result Body Mass Index 38.2 Const General: comfortable and no acute distress Orientation/consciousness: patient oriented x3 HEENT Other: Unremarkable Head: Yes normal to inspection Neck Neck: Yes normal visual inspection Chest Chest palpation & inspection: normal inspection of the chest Resp Auscultation: clear to auscultation bilaterally Cardio Palpation: normal PMI Heart sounds: S1 normal heart sound present, S2 normal heart sound present, no gallops, no murmurs and no rubs GI Palpation (GI): Soft to palpation Back/Spine/Pelvis Other: unremarkable Skin General skin exam: no rashes or lesions noted Neuro General: patient oriented x3 Extrem General: Yes normal to inspection Psych Mental Status: mental status grossly normal Objective Labs and Meds Result diagrams: 04/13/22 04:40 04/13/22 08:51 Lab results: Laboratory Results - last 24 hr 04/12/22 04/12/22 04/12/22 16:05 18:57 18:57 WBC RBC Hgb POC Hgb (Calc) Hct POC Hct MCV MCH MCHC RDW Plt Count MPV Immature Gran % (Auto) Neut % (Auto) Lymph % (Auto) Alfalfa % (Auto) Eos % (Auto) Baso % (Auto) Lymph # (Auto) Alfalfa # (Auto) Eos # (Auto) Baso # (Auto) Abs Immat Gran (auto) Absolute Neuts (auto) Absolute Nucleated RBC Nucleated RBC % (auto) PT INR APTT aPTT Heparin Protocol Fibrinogen POC Std Base Excess POC O2 Sat (Calc) POC ABG pO2 POC ABG Total CO2 POC Capillary pH POC Capillary pCO2 POC Cap HCO3 (Calc) POC Sodium Sodium POC Potassium Potassium Chloride Carbon Dioxide Anion Gap BUN Creatinine Estim Creat Clear Calc Estimated GFR POC Glucose 150 H Random Glucose Fasting Glucose Lactic Acid 0.7 Calcium Troponin I High Sens 51.9 H* Blood Type Antibody Screen Crossmatch 04/12/22 04/12/22 04/12/22 18:57 20:26 21:15 WBC RBC Hgb POC Hgb (Calc) Hct POC Hct MCV MCH MCHC RDW Plt Count MPV Immature Gran % (Auto) Neut % (Auto) Lymph % (Auto) Alfalfa % (Auto) Eos % (Auto) Baso % (Auto) Lymph # (Auto) Alfalfa # (Auto) Eos # (Auto) Baso # (Auto) Abs Immat Gran (auto) Absolute Neuts (auto) Absolute Nucleated RBC Nucleated RBC % (auto) PT INR APTT aPTT Heparin Protocol 28.8 L D Fibrinogen > 700 H POC Std Base Excess POC O2 Sat (Calc) POC ABG pO2 POC ABG Total CO2 POC Capillary pH POC Capillary pCO2 POC Cap HCO3 (Calc) POC Sodium Sodium POC Potassium Potassium Chloride Carbon Dioxide Anion Gap BUN Creatinine Estim Creat Clear Calc Estimated GFR POC Glucose 225 H Random Glucose Fasting Glucose Lactic Acid Calcium Troponin I High Sens Blood Type Antibody Screen Crossmatch 04/12/22 04/12/22 04/13/22 22:32 22:32 02:37 WBC RBC Hgb POC Hgb (Calc) Hct POC Hct MCV MCH MCHC RDW Plt Count MPV Immature Gran % (Auto) Neut % (Auto) Lymph % (Auto) Alfalfa % (Auto) Eos % (Auto) Baso % (Auto) Lymph # (Auto) Alfalfa # (Auto) Eos # (Auto) Baso # (Auto) Abs Immat Gran (auto) Absolute Neuts (auto) Absolute Nucleated RBC Nucleated RBC % (auto) PT INR APTT aPTT Heparin Protocol Fibrinogen > 700 H > 700 H POC Std Base Excess POC O2 Sat (Calc) POC ABG pO2 POC ABG Total CO2 POC Capillary pH POC Capillary pCO2 POC Cap HCO3 (Calc) POC Sodium Sodium POC Potassium Potassium Chloride Carbon Dioxide Anion Gap BUN Creatinine Estim Creat Clear Calc Estimated GFR POC Glucose Random Glucose Fasting Glucose Lactic Acid Calcium Troponin I High Sens 48.0 H Blood Type Antibody Screen Crossmatch 04/13/22 04/13/22 04/13/22 04:40 04:40 04:40 WBC 14.7 H RBC 3.75 L Hgb 11.3 L POC Hgb (Calc) Hct 34.0 L POC Hct MCV 90.7 MCH 30.1 MCHC 33.2 RDW 14.5 Plt Count 264 MPV 9.8 Immature Gran % (Auto) 0.4 Neut % (Auto) 74.2 H Lymph % (Auto) 16.8 L Alfalfa % (Auto) 7.7 Eos % (Auto) 0.6 Baso % (Auto) 0.3 Lymph # (Auto) 2.5 Alfalfa # (Auto) 1.1 Eos # (Auto) 0.1 Baso # (Auto) 0.0 Abs Immat Gran (auto) 0.06 H Absolute Neuts (auto) 10.9 H Absolute Nucleated RBC 0.000 Nucleated RBC % (auto) 0.0 PT INR APTT aPTT Heparin Protocol 28.3 L Fibrinogen POC Std Base Excess POC O2 Sat (Calc) POC ABG pO2 POC ABG Total CO2 POC Capillary pH POC Capillary pCO2 POC Cap HCO3 (Calc) POC Sodium Sodium 139 POC Potassium Potassium 3.7 Chloride 103 Carbon Dioxide 26 Anion Gap 14 BUN 12 Creatinine 0.58 Estim Creat Clear Calc 123.3 Estimated GFR > 60 POC Glucose Random Glucose Fasting Glucose 169 H Lactic Acid Calcium 8.5 Troponin I High Sens Blood Type Antibody Screen Crossmatch 04/13/22 04/13/22 04/13/22 06:21 08:51 08:51 WBC RBC Hgb POC Hgb (Calc) Hct POC Hct MCV MCH MCHC RDW Plt Count MPV Immature Gran % (Auto) Neut % (Auto) Lymph % (Auto) Alfalfa % (Auto) Eos % (Auto) Baso % (Auto) Lymph # (Auto) Alfalfa # (Auto) Eos # (Auto) Baso # (Auto) Abs Immat Gran (auto) Absolute Neuts (auto) Absolute Nucleated RBC Nucleated RBC % (auto) PT 11.5 INR 1.0 APTT 27.7 aPTT Heparin Protocol Fibrinogen > 700 H > 700 H POC Std Base Excess POC O2 Sat (Calc) POC ABG pO2 POC ABG Total CO2 POC Capillary pH POC Capillary pCO2 POC Cap HCO3 (Calc) POC Sodium Sodium POC Potassium Potassium Chloride Carbon Dioxide Anion Gap BUN Creatinine Estim Creat Clear Calc Estimated GFR POC Glucose Random Glucose Fasting Glucose Lactic Acid Calcium Troponin I High Sens Blood Type Antibody Screen Crossmatch 04/13/22 04/13/22 04/13/22 08:51 08:51 09:40 WBC RBC Hgb POC Hgb (Calc) Hct POC Hct MCV MCH MCHC RDW Plt Count MPV Immature Gran % (Auto) Neut % (Auto) Lymph % (Auto) Alfalfa % (Auto) Eos % (Auto) Baso % (Auto) Lymph # (Auto) Alfalfa # (Auto) Eos # (Auto) Baso # (Auto) Abs Immat Gran (auto) Absolute Neuts (auto) Absolute Nucleated RBC Nucleated RBC % (auto) PT INR APTT aPTT Heparin Protocol Fibrinogen POC Std Base Excess POC O2 Sat (Calc) POC ABG pO2 POC ABG Total CO2 POC Capillary pH POC Capillary pCO2 POC Cap HCO3 (Calc) POC Sodium Sodium 141 POC Potassium Potassium 4.0 Chloride 103 Carbon Dioxide 27 Anion Gap 15 BUN 11 Creatinine 0.56 Estim Creat Clear Calc 127.7 Estimated GFR > 60 POC Glucose 140 H Random Glucose 165 H Fasting Glucose Lactic Acid Calcium 8.7 Troponin I High Sens Blood Type A Positive Antibody Screen NEGATIVE Crossmatch See Detail 04/13/22 10:51 WBC RBC Hgb POC Hgb (Calc) 10.5 L Hct POC Hct 31 L MCV MCH MCHC RDW Plt Count MPV Immature Gran % (Auto) Neut % (Auto) Lymph % (Auto) Alfalfa % (Auto) Eos % (Auto) Baso % (Auto) Lymph # (Auto) Alfalfa # (Auto) Eos # (Auto) Baso # (Auto) Abs Immat Gran (auto) Absolute Neuts (auto) Absolute Nucleated RBC Nucleated RBC % (auto) PT INR APTT aPTT Heparin Protocol Fibrinogen POC Std Base Excess 7 H POC O2 Sat (Calc) 100 POC ABG pO2 206 H POC ABG Total CO2 34 H POC Capillary pH 7.35 POC Capillary pCO2 59 H POC Cap HCO3 (Calc) 32 H POC Sodium 138 Sodium POC Potassium 3.5 Potassium Chloride Carbon Dioxide Anion Gap BUN Creatinine Estim Creat Clear Calc Estimated GFR POC Glucose 161 H Random Glucose Fasting Glucose Lactic Acid Calcium Troponin I High Sens Blood Type Antibody Screen Crossmatch Progress Note: A&P Assessment and plan (1) Acute coronary syndrome: Status: Acute (2) Thrombosis of left popliteal artery: Status: Acute (3) Status post total knee replacement: Status: Acute (4) PAD (peripheral artery disease): Status: Acute Plan Based on the EKG, she has T inversions across the precordium which is a new fin ding. Repeat EKG today done the last hour shows additionally PVCs. High sensitivity troponins are 52 and 48. She could have LAD territory ischemia. Clinically however, she does not have any symptoms. Clinically, she has got no symptoms at all. It appears that she does underwent emergency vascular surgery due to lower extremity vascular occlusion. Discussed with Dr. Carbajal. At this time, plan is to keep her in ICU. Anticoagulation per vascular surgeon. He stated that he would plan on keeping her on IV heparin. Otherwise, aspirin and statins. Echocardiogram when able. Could not be done earlier as she was in the operating room. Eventually, probably needs a diagnostic catheterization when stable from vascular. Time Spent With Patient Time: Total time spent is greater than 50% in coordination of care (as documented) at patient's floor/unit and/or counseling patient: 35min. Progress Note: Quality Stroke Does the patient have a stroke diagnosis?: No Procedures Date of Service Date of Service: 04/13/22
[2022-04-13 15:54] LABS: MANUAL DIFF FLAG NO
[2022-04-13 16:01] LABS: Basophils Percent Auto 0.2 % (0-2); Eosinophils Absolute Auto 0.1 X10*3/uL (0.0-0.4); Eosinophils Percent Auto 0.3 % (0-4); Imm Gran Abs Auto 0.07 X10*3/uL (0.00-0.03); Imm Gran Pct Auto 0.5 % (0.0-0.4); Lymphocytes Absolute Auto 1.7 X10*3/uL (1.2-4.9); Lymphocytes Percent Auto 11.8 % (20-40); Mean Corpuscular HGB Conc 33.3 g/dl (31.0-35.0); Mean Corpuscular Hemoglobin 30.6 pg (27.0-33.0); Mean Corpuscular Volume 91.7 fL (80.0-98.0); Mean Platelet Volume 9.5 fL (9.4-12.3); Monocytes Absolute Auto 1.1 X10*3/uL (0.1-1.2); Monocytes Percent Auto 7.7 % (2-11); Neutrophils Absolute Auto 11.6 x10*3/uL (2.0-8.3); Neutrophils Percent Auto 79.5 % (45-73); Platelet Count 239 X10*3/uL (160-400); Red Blood Count 3.27 X10*6/uL (4.20-5.50); Red Cell Distribution Width 14.5 % (11.0-16.0); White Blood Count 14.6 X10*3/uL (4.8-10.8)
[2022-04-13 16:10] LABS: Prothrombin Time 11.6 SEC (10.0-13.1)
[2022-04-13 16:11] LABS: Anion Gap 12 (12-20); Blood Urea Nitrogen 12 mg/dL (9-16); Calcium 8.1 mg/dL (8.4-10.2); Carbon Dioxide 27 mmol/L (22-29); Chloride 104 mmol/L (96-108); Creatinine Clr Calc Pharmacy 121.2; Estimated Glomerular Filt Rate > 60; Glucose Random 196 mg/dL (60-115); Sodium 139 mmol/L (135-145)
[2022-04-13 16:13] LABS: Fibrinogen > 700 MG/DL (259-690)
--- NOTE | 2022-04-13 16:17 | MHC.CLN ---
NUTRITION DIET CHANGED FROM REGULAR TO DIABETIC 2000 KCAL. HAS DX DM AND TAKES INSULIN. NO ADDITIONAL NUTRITION INTERVENTIONS AT THIS TIME.
[2022-04-13] MEDS: Heparin Sodium,Porcine/1/2NS 25,000 UNIT/250 ML IV.SOLN 14.38 UNIT IVCONT (16:18)
[2022-04-13 16:26] LABS: Glucose, Whole Blood 174 mg/dL (60-115)
[2022-04-13] MEDS: 0.9 % Sodium Chloride Flush 3 ML SYRINGE IVFLUSH ×2 (16:33→19:37)
[2022-04-13] MEDS: Insulin Lispro 100 UNIT/ML 3 ML VIAL SUBCUT ×2 (16:33→21:03)
--- NOTE | 2022-04-13 18:13 | PC.NURSE ---
Per Dr. Carbajal, to start Heparin gtt at the rate it was going at previously. Which is 16units/kg/hr. Dose verified with MD. He stated to start it at the 16units/kg/hr. Heparin gtt started with second RN verification.
[2022-04-13 18:48] LABS: Fibrinogen > 700 MG/DL (259-690)
--- NOTE | 2022-04-13 19:52 | P.PNCC_ITS ---
Subjective Subjective Date of Service: 04/13/22 Interval History: Mrs. Meade was transferred to the ICU yesterday after aortogram and insertion of left lower extremity thrombolysis catheter by Dr. Carbajal. The patient is a 56-year-old woman with past medical history of peripheral vascular disease, diabetes, hypertension, obesity, and arthritis. About 6 months ago, the patient underwent a left SFA atherectomy with stent, and left popliteal and proximal SFA angioplasties.? Two days ago, patient underwent left total knee replacement here by Dr. Rodriguez.? Postoperatively she seemed to be doing well and then her foot felt cold.? Work up found an acute thrombus in the popliteal artery.? She was been placed on a heparin drip with some clinical improvement.? Motor and sensation were intact throughout this entire process. Yesterday the patient underwent aortogram and insertion of left lower extremity thrombolysis catheter by Dr. Carbajal.? Preop, she had no pulses in the left foot.? The procedure was uncomplicated.? The patient was transferred to the ICU postoperatively.? On arrival here, the patient was well.? Her left lower extremity below the knee down to the foot was cool although by no means ice cold.? It was pale but has some color in it.? She had full motion and a slight numbness below the knee, compared to the right leg.? She had no palpable or dopplerable pulses in the foot.? Her popliteal pulses were easily dopplerable.? The toes of the left foot had some capillary refill, albeit very slow, at least 4-5 secs. Of note, the patient?s preprocedure rhythm strip showed T wave inversions.? An EKG done postprocedure in the ICU showed diffuse T-wave inversion in all leads.? In contrast, her preoperative EKG on March 29 was essentially normal.? The pa tient was completely asymptomatic from an ACS point of view.? Labs drawn in the ICU postoperatively showed flat troponins.? Preliminary echo findings were unremarkable (waiting for the official read). The patient went back to angio today for a f/u thrombolysis study.? There was an acute cut off at the distal SFA.? The popliteal artery was occluded.? The anterior tibial artery was reconstituted by collaterals.? The peroneal and post tibial arteries were occluded. The patient was taken to the OR where she underwent thrombectomy of the popliteal, SFA, anterior tibial, posterior tibial, and peroneal arteries, and endarterectomy and Patch plasty closure of the popliteal artery. ?The surgical and GETA course were unremarkable. I saw the patient in the PACU.? Her leg and foot were colder and paler than yesterday.? Dr. Carbajal asked us to warm up her legs w the [employer] Hugger.? On arrival to ICU, the legs were a bit warmer, but the left lower leg looked a bit mottled, and capillary refill was very slow, at least 5 secs.? She was not able to move the foot, and it was more numb than yesterday. I examined the patient again at 19:40.? The leg and foot is warmer than was in the PACU.? And now feels approximately room temperature. ?She has no movement or sensation in the foot.? Very slow capillary refill.? I discussed the status of the leg and foot with Dr. Carbajal. IMPRESSION: 1. Acute popliteal thrombus with severely ischemic left leg.? Not much else to do at this time other than hope that the heparin helps.? We have her on VTE dose. 2. Status post left total knee replacement. 3. ? If she had an ischemic event at some point (according to the EKG).? Currently she?s on Heparin plus aspirin, plus statin.? Waiting for the official echo report. Critical Care Time (minutes): 0 Physical Exam Vital Signs: Vital Signs: Last Vital Signs Temp 98.7 F 04/13/22 16:00 Pulse 98 04/13/22 19:00 Resp 16 04/13/22 19:00 BP 109/54 L 04/13/22 19:00 Pulse Ox 95 04/13/22 19:00 O2 Del Method 04/13/22 19:00 O2 Flow Rate 3 04/13/22 14:35 BMI result Body Mass Index 38.2 Objective Data Labs CBC & Chem 7: 04/13/22 15:50 04/13/22 15:50 Labs: Laboratory Results - last 24 hr 04/12/22 04/12/22 04/12/22 18:57 20:26 21:15 WBC RBC Hgb POC Hgb (Calc) Hct POC Hct MCV MCH MCHC RDW Plt Count MPV Immature Gran % (Auto) Neut % (Auto) Lymph % (Auto) [place] % (Auto) Eos % (Auto) Baso % (Auto) Lymph # (Auto) [place] # (Auto) Eos # (Auto) Baso # (Auto) Abs Immat Gran (auto) Absolute Neuts (auto) Absolute Nucleated RBC Nucleated RBC % (auto) PT INR APTT aPTT Heparin Protocol 28.8 L D Fibrinogen POC Std Base Excess POC O2 Sat (Calc) POC ABG pO2 POC ABG Total CO2 POC Capillary pH POC Capillary pCO2 POC Cap HCO3 (Calc) POC Sodium Sodium POC Potassium Potassium Chloride Carbon Dioxide Anion Gap BUN Creatinine Estim Creat Clear Calc Estimated GFR POC Glucose 225 H Random Glucose Fasting Glucose Calcium Troponin I High Sens 51.9 H* Blood Type Antibody Screen Crossmatch 04/12/22 04/12/22 04/13/22 22:32 22:32 02:37 WBC RBC Hgb POC Hgb (Calc) Hct POC Hct MCV MCH MCHC RDW Plt Count MPV Immature Gran % (Auto) Neut % (Auto) Lymph % (Auto) [place] % (Auto) Eos % (Auto) Baso % (Auto) Lymph # (Auto) [place] # (Auto) Eos # (Auto) Baso # (Auto) Abs Immat Gran (auto) Absolute Neuts (auto) Absolute Nucleated RBC Nucleated RBC % (auto) PT INR APTT aPTT Heparin Protocol Fibrinogen > 700 H > 700 H POC Std Base Excess POC O2 Sat (Calc) POC ABG pO2 POC ABG Total CO2 POC Capillary pH POC Capillary pCO2 POC Cap HCO3 (Calc) POC Sodium Sodium POC Potassium Potassium Chloride Carbon Dioxide Anion Gap BUN Creatinine Estim Creat Clear Calc Estimated GFR POC Glucose Random Glucose Fasting Glucose Calcium Troponin I High Sens 48.0 H Blood Type Antibody Screen Crossmatch 04/13/22 04/13/22 04/13/22 04:40 04:40 04:40 WBC 14.7 H RBC 3.75 L Hgb 11.3 L POC Hgb (Calc) Hct 34.0 L POC Hct MCV 90.7 MCH 30.1 MCHC 33.2 RDW 14.5 Plt Count 264 MPV 9.8 Immature Gran % (Auto) 0.4 Neut % (Auto) 74.2 H Lymph % (Auto) 16.8 L [place] % (Auto) 7.7 Eos % (Auto) 0.6 Baso % (Auto) 0.3 Lymph # (Auto) 2.5 [place] # (Auto) 1.1 Eos # (Auto) 0.1 Baso # (Auto) 0.0 Abs Immat Gran (auto) 0.06 H Absolute Neuts (auto) 10.9 H Absolute Nucleated RBC 0.000 Nucleated RBC % (auto) 0.0 PT INR APTT aPTT Heparin Protocol 28.3 L Fibrinogen POC Std Base Excess POC O2 Sat (Calc) POC ABG pO2 POC ABG Total CO2 POC Capillary pH POC Capillary pCO2 POC Cap HCO3 (Calc) POC Sodium Sodium 139 POC Potassium Potassium 3.7 Chloride 103 Carbon Dioxide 26 Anion Gap 14 BUN 12 Creatinine 0.58 Estim Creat Clear Calc 123.3 Estimated GFR > 60 POC Glucose Random Glucose Fasting Glucose 169 H Calcium 8.5 Troponin I High Sens Blood Type Antibody Screen Crossmatch 04/13/22 04/13/22 04/13/22 06:21 08:51 08:51 WBC RBC Hgb POC Hgb (Calc) Hct POC Hct MCV MCH MCHC RDW Plt Count MPV Immature Gran % (Auto) Neut % (Auto) Lymph % (Auto) [place] % (Auto) Eos % (Auto) Baso % (Auto) Lymph # (Auto) [place] # (Auto) Eos # (Auto) Baso # (Auto) Abs Immat Gran (auto) Absolute Neuts (auto) Absolute Nucleated RBC Nucleated RBC % (auto) PT 11.5 INR 1.0 APTT 27.7 aPTT Heparin Protocol Fibrinogen > 700 H > 700 H POC Std Base Excess POC O2 Sat (Calc) POC ABG pO2 POC ABG Total CO2 POC Capillary pH POC Capillary pCO2 POC Cap HCO3 (Calc) POC Sodium Sodium POC Potassium Potassium Chloride Carbon Dioxide Anion Gap BUN Creatinine Estim Creat Clear Calc Estimated GFR POC Glucose Random Glucose Fasting Glucose Calcium Troponin I High Sens Blood Type Antibody Screen Crossmatch 04/13/22 04/13/22 04/13/22 08:51 08:51 09:40 WBC RBC Hgb POC Hgb (Calc) Hct POC Hct MCV MCH MCHC RDW Plt Count MPV Immature Gran % (Auto) Neut % (Auto) Lymph % (Auto) [place] % (Auto) Eos % (Auto) Baso % (Auto) Lymph # (Auto) [place] # (Auto) Eos # (Auto) Baso # (Auto) Abs Immat Gran (auto) Absolute Neuts (auto) Absolute Nucleated RBC Nucleated RBC % (auto) PT INR APTT aPTT Heparin Protocol Fibrinogen POC Std Base Excess POC O2 Sat (Calc) POC ABG pO2 POC ABG Total CO2 POC Capillary pH POC Capillary pCO2 POC Cap HCO3 (Calc) POC Sodium Sodium 141 POC Potassium Potassium 4.0 Chloride 103 Carbon Dioxide 27 Anion Gap 15 BUN 11 Creatinine 0.56 Estim Creat Clear Calc 127.7 Estimated GFR > 60 POC Glucose 140 H Random Glucose 165 H Fasting Glucose Calcium 8.7 Troponin I High Sens Blood Type A Positive Antibody Screen NEGATIVE Crossmatch See Detail 04/13/22 04/13/22 04/13/22 10:51 15:50 15:50 WBC RBC Hgb POC Hgb (Calc) 10.5 L Hct POC Hct 31 L MCV MCH MCHC RDW Plt Count MPV Immature Gran % (Auto) Neut % (Auto) Lymph % (Auto) [place] % (Auto) Eos % (Auto) Baso % (Auto) Lymph # (Auto) [place] # (Auto) Eos # (Auto) Baso # (Auto) Abs Immat Gran (auto) Absolute Neuts (auto) Absolute Nucleated RBC Nucleated RBC % (auto) PT 11.6 INR 1.0 APTT aPTT Heparin Protocol Cancelled 26.0 L Fibrinogen > 700 H POC Std Base Excess 7 H POC O2 Sat (Calc) 100 POC ABG pO2 206 H POC ABG Total CO2 34 H POC Capillary pH 7.35 POC Capillary pCO2 59 H POC Cap HCO3 (Calc) 32 H POC Sodium 138 Sodium POC Potassium 3.5 Potassium Chloride Carbon Dioxide Anion Gap BUN Creatinine Estim Creat Clear Calc Estimated GFR POC Glucose 161 H Random Glucose Fasting Glucose Calcium Troponin I High Sens Blood Type Antibody Screen Crossmatch 04/13/22 04/13/22 04/13/22 15:50 15:50 16:23 WBC 14.6 H RBC 3.27 L Hgb 10.0 L POC Hgb (Calc) Hct 30.0 L POC Hct MCV 91.7 MCH 30.6 MCHC 33.3 RDW 14.5 Plt Count 239 MPV 9.5 Immature Gran % (Auto) 0.5 H Neut % (Auto) 79.5 H Lymph % (Auto) 11.8 L [place] % (Auto) 7.7 Eos % (Auto) 0.3 Baso % (Auto) 0.2 Lymph # (Auto) 1.7 [place] # (Auto) 1.1 Eos # (Auto) 0.1 Baso # (Auto) 0.0 Abs Immat Gran (auto) 0.07 H Absolute Neuts (auto) 11.6 H Absolute Nucleated RBC 0.000 Nucleated RBC % (auto) 0.0 PT INR APTT aPTT Heparin Protocol Fibrinogen POC Std Base Excess POC O2 Sat (Calc) POC ABG pO2 POC ABG Total CO2 POC Capillary pH POC Capillary pCO2 POC Cap HCO3 (Calc) POC Sodium Sodium 139 POC Potassium Potassium 4.0 Chloride 104 Carbon Dioxide 27 Anion Gap 12 BUN 12 Creatinine 0.59 Estim Creat Clear Calc 121.2 Estimated GFR > 60 POC Glucose 174 H Random Glucose 196 H Fasting Glucose Calcium 8.1 L D Troponin I High Sens Blood Type Antibody Screen Crossmatch 04/13/22 18:27 WBC RBC Hgb POC Hgb (Calc) Hct POC Hct MCV MCH MCHC RDW Plt Count MPV Immature Gran % (Auto) Neut % (Auto) Lymph % (Auto) [place] % (Auto) Eos % (Auto) Baso % (Auto) Lymph # (Auto) [place] # (Auto) Eos # (Auto) Baso # (Auto) Abs Immat Gran (auto) Absolute Neuts (auto) Absolute Nucleated RBC Nucleated RBC % (auto) PT INR APTT aPTT Heparin Protocol Fibrinogen > 700 H POC Std Base Excess POC O2 Sat (Calc) POC ABG pO2 POC ABG Total CO2 POC Capillary pH POC Capillary pCO2 POC Cap HCO3 (Calc) POC Sodium Sodium POC Potassium Potassium Chloride Carbon Dioxide Anion Gap BUN Creatinine Estim Creat Clear Calc Estimated GFR POC Glucose Random Glucose Fasting Glucose Calcium Troponin I High Sens Blood Type Antibody Screen Crossmatch Quality Stroke Does the patient have a stroke diagnosis?: No VTE Prior VTE?: No VTE Risk Level:: Medical - moderate - high VTE Device Contraindication: N/A - Device Ordered VTE Drug Contraindication: N/A - Med Ordered
[2022-04-13 20:51] LABS: Glucose, Whole Blood 196 mg/dL (60-115)
[2022-04-13] MEDS: Aspirin 325 MG TABLET PO (21:04)
[2022-04-13] MEDS: Insulin Glargine,Hum.rec.anlog 100 UNIT/ML 10 ML VIAL 60 UNIT SUBCUT (21:04)
[2022-04-13] MEDS: Docusate Sodium 100 MG CAPSULE PO (21:04)
[2022-04-13] MEDS: traZODone HCL 50 MG TABLET PO (21:04)
[2022-04-13] MEDS: Celecoxib 200 MG CAPSULE PO (21:04)
[2022-04-13] MEDS: Atorvastatin Calcium 40 MG TABLET PO (21:33)
[2022-04-14] VITALS (17 sets, daily range): BP systolic 102–168; BP diastolic 47–77; PULSE 75–115; RESP 15–23; TEMP 36.4–37.2; O2SAT 90–100
[2022-04-14 00:50] LABS: PTT Heparin Drip 41.7 SEC (53-77.9)
[2022-04-14] MEDS: Heparin Sodium,Porcine 5,000 UNIT/ML VIAL 4100 UNIT IVPUSH ×2 (00:57→08:14)
[2022-04-14] MEDS: Heparin Sodium,Porcine/1/2NS 25,000 UNIT/250 ML IV.SOLN 18.49 UNIT IVCONT (05:45)
[2022-04-14] MEDS: HYDROmorphone HCl 0.5 MG/0.5 ML SYRINGE IVPUSH ×2 (05:55→15:04)
[2022-04-14 07:18] LABS: Glucose, Whole Blood 208 mg/dL (60-115)
[2022-04-14] MEDS: Insulin Lispro 100 UNIT/ML 3 ML VIAL SUBCUT ×4 (07:36→20:37)
[2022-04-14 07:49] LABS: Lactic Acid 0.7 mmol/L (0.5-2.0)
[2022-04-14 07:52] LABS: PTT Heparin Drip 50.3 SEC (53-77.9)
--- NOTE | 2022-04-14 07:53 | HO.VASCPN ---
Subjective Subjective Date of Service: 04/14/22 Patient reports: no new complaints and feels better Interval history: Very pleasant 56-year-old female for ICU follow-up. She has had a tumultuous last 3 days. She underwent tPA thrombolysis which provided minimal relief. She subsequently underwent thrombectomy. At the current time her leg appears to be doing okay. She denies any pain. She is unable to move that left foot. She now presents for regular ICU follow-up. Physical Exam Vital Signs: Vital Signs: Last Vital Signs Temp 98.1 F 04/14/22 00:00 Pulse 115 H 04/14/22 06:00 Resp 22 H 04/14/22 06:00 BP 107/62 04/14/22 06:00 Pulse Ox 97 04/14/22 06:00 O2 Del Method 04/14/22 06:00 O2 Flow Rate 3 04/13/22 14:35 BMI result Body Mass Index 38.2 Const: General: cooperative, healthy appearing and no acute distress Orientation/consciousness: oriented to person, oriented to place and oriented to time HEENT: Head: Yes normal to inspection Neck: Carotids: no bruits Chest: Chest palpation & inspection: normal inspection of the chest Resp: Effort & Inspection: normal respiratory effort and able to speak in complete sentences Auscultation: clear to auscultation bilaterally Cardio: Other: Left foot popliteal signal no DP or PT Rate: regular rate Heart sounds: S1 normal heart sound present and S2 normal heart sound present Peripheral pulses: dorsalis pedis present (Right) GI: Inspection: Yes normal to inspection Skin: General skin exam: no rashes or lesions noted Wounds: no wounds Neuro: General: oriented to person, oriented to place, oriented to time and CN's II-XI intact bilaterally Extrem: Other: Left foot no motor sensation Psych: Appearance: grossly normal and well kempt Speech and movement: Normal speech and movement present Affect: normal affect Progress Note: A&P Assessment and plan (1) PAD (peripheral artery disease): Status: Acute Assessment and Plan: In short patient is stable status post thrombectomy after thrombolysis. She is being maintained on a heparin drip. Today we will get her out of bed to chair. Continue to monitor that foot. It appears ischemic foot on the left from ankle on down. Warm all the way down to the ankle. Continued assessment and will have to assess the overall function of that left leg. Thank you for allowing us to assist in her care. Time Spent With Patient Time: Total time spent is greater than 50% in coordination of care (as documented) at patient's floor/unit and/or counseling patient: Procedures Date of Service Date of Service: 04/14/22 Quality Stroke Does the patient have a stroke diagnosis?: No VTE Prior VTE?: No VTE Risk Level:: Medical - moderate - high VTE Device Contraindication: N/A - Device Ordered VTE Drug Contraindication: N/A - Med Ordered
[2022-04-14 08:06] LABS: Anion Gap 14 (12-20); Blood Urea Nitrogen 12 mg/dL (9-16); Calcium 8.1 mg/dL (8.4-10.2); Carbon Dioxide 27 mmol/L (22-29); Chloride 101 mmol/L (96-108); Creatinine Clr Calc Pharmacy 119.2; Estimated Glomerular Filt Rate > 60; Glucose Random 221 mg/dL (60-115); Sodium 138 mmol/L (135-145)
[2022-04-14] MEDS: Aspirin 325 MG TABLET PO ×2 (08:15→20:36)
[2022-04-14] MEDS: oxyCODONE HCl ER 10 MG TAB.ER.12H PO ×2 (08:16→20:36)
[2022-04-14] MEDS: Docusate Sodium 100 MG CAPSULE PO ×2 (08:16→20:36)
[2022-04-14] MEDS: Celecoxib 200 MG CAPSULE PO ×2 (08:16→20:36)
[2022-04-14] MEDS: 0.9 % Sodium Chloride Flush 3 ML SYRINGE IVFLUSH ×2 (08:16→20:37)
[2022-04-14 11:35] LABS: Glucose, Whole Blood 251 mg/dL (60-115)
--- NOTE | 2022-04-14 11:49 | PM.PNORT ---
Subjective Subjective Date of Service: 04/14/22 Principal diagnosis: PAD s/p left TKA with SFA/Popliteal artery thrombosis Interval history: Patient reports numbbness in foot and inability to dorsiflex but less painful this morning. Physical Exam Vital Signs: Vital Signs: Last Vital Signs Temp 98.7 F 04/14/22 08:00 Pulse 99 04/14/22 11:00 Resp 23 H 04/14/22 11:00 BP 127/60 04/14/22 11:00 Pulse Ox 100 04/14/22 11:00 O2 Del Method 04/14/22 11:00 O2 Flow Rate 3 04/13/22 14:35 BMI result Body Mass Index 38.2 Extrem: Other: Dressing c/d/i over knee with no hematoma or abnormal swelling. 0-45 deg of motion with weak straight leg raise with assistance. Left foot with gc motion but no active toe motion and sensation decreased to touch over dorsum of foot. Cool to touch with decreased cap refill Procedures Date of Service Date of Service: 04/14/22 Progress Note: A&P Assessment and plan (1) Status post total knee replacement: Status: Acute Assessment and Plan: PT daily as per TKA protocol Cont heparin drip as per vascular (2) Thrombosis of left popliteal artery: Status: Acute Assessment and Plan: Continue heaprin as per vascular (3) Acute coronary syndrome: Status: Acute Assessment and Plan: Appreciate cardiology note. Transfer to telemetry. Time Spent With Patient Time: Total time spent is greater than 50% in coordination of care (as documented) at patient's floor/unit and/or counseling patient: Quality Stroke Does the patient have a stroke diagnosis?: No VTE Prior VTE?: No VTE Risk Level:: Medical - moderate - high VTE Device Contraindication: N/A - Device Ordered VTE Drug Contraindication: N/A - Med Ordered
--- NOTE | 2022-04-14 12:30 | PM.CCPN ---
Subjective Subjective Date of Service: 04/14/22 Interval History: Mrs. Meade was transferred to the ICU on Apr 12 after aortogram and insertion of left lower extremity thrombolysis catheter by Dr. Carbajal. The patient is a 56-year-old woman with past medical history of peripheral vascular disease, diabetes, hypertension, obesity, and arthritis. About 6 months ago, the patient underwent a left SFA atherectomy with stent, and left popliteal and proximal SFA angioplasties.? On Apr 10, the patient underwent left total knee replacement here by Dr. Rodriguez.? Postoperatively she seemed to be doing well and then her foot felt cold.? Work up found an acute thrombus in the popliteal artery.? She was placed on a heparin drip with some clinical improvement.? Motor and sensation were intact throughout this entire process. On Apr 12, the patient underwent aortogram and insertion of left lower extremity thrombolysis catheter by Dr. Carbajal.? Preop, she had no pulses in the left foot.? The procedure was uncomplicated.? The patient was transferred to the ICU postoperatively.? On arrival here, the patient was well.? Her left lower extremity below the knee down to the foot was cool although by no means ice cold.? It was pale but had some color in it.? She had full motion and a slight numbness below the knee, compared to the right leg.? She had no palpable or dopplerable pulses in the foot.? Her popliteal pulse was easily dopplerable.? The toes of the left foot had some capillary refill, albeit very slow, at least 4-5 secs. Of note, the patient?s preprocedure rhythm strip that day showed T wave inversions.? A f/u EKG done postprocedure in the ICU showed diffuse T-wave inversion in all leads.? In contrast, her preoperative EKG on March 29 was essentially normal.? The patient was completely asymptomatic from an ACS point of view.? Labs drawn in the ICU postoperatively showed flat troponins.? Preliminary echo findings were unremarkable (waiting for the official read).? She was seen by Dr. Scales, we put her on ASA, statin, and heparin. The patient went back to angio yesterday for a f/u thrombolysis study.? There was an acute cut off at the distal SFA.? The popliteal artery was occluded.? The anterior tibial artery was reconstituted by collaterals.? The peroneal and post tibial arteries were occluded. Following that, the patient was taken to the OR where she underwent thrombectomy of the popliteal, SFA, anterior tibial, posterior tibial, and peroneal arteries, and endarterectomy and Patch plasty closure of the popliteal artery. In the PACU afterward, her leg and foot were colder and paler than the prior day.? Dr. Carbajal asked us to warm up her legs w the [employer] Hugger.? Later in the ICU, the left lower leg looked a bit mottled, and capillary refill was very slow, at least 5 secs.? She was not able to move the foot, and it was more numb than the prior day.? She?s been maintained on a heparin drip since then (VTE dose level). Today, the leg is warmer than yesterday, and looks much more viable.? The foot is colder than the leg, but maybe slightly warmer than last night.? The foot looks about the same, still no pulses, no sensation, and no movement, but she definitely has capillary refill, about 5-6 seconds, which is an improvement from last night.? She?s fully awake and alert, doing her knitting.? Vital signs have been stable.? HR 99, BP 125/67, breathing easy, Sat 99% on room air.? Afebrile. LABORATORY DATA:? Below.? Notably, lactate is negative. IMPRESSION: 1. Acute popliteal thrombus with severely ischemic left leg.? Not much else to do at this time other than the heparin. 2. Status post left total knee replacement.? Needs PT to start MAURICE.? (OK?d by Dr. Carbajal.) 3. ? If she had an ischemic event at some point (according to the EKG).? Currently she?s on Heparin plus aspirin, plus statin.? Waiting for the official echo report.? Currently asymptomatic.? In Dr. Scales?s opinion, she?ll likely need a cardiac cath at some point. 4. DM.? I?ll up her Lantus dose to 35u bid. Discussed with Dr. Carbajal and Dr. Rodriguez at length this morning. ?Stable for transfer to [facility] with telemetry.? I will sign out to hospitalists. Critical Care Time (minutes): 0 Physical Exam Vital Signs: Vital Signs: Last Vital Signs Temp 98.7 F 04/14/22 12:00 Pulse 99 04/14/22 12:00 Resp 19 04/14/22 12:00 BP 125/67 04/14/22 12:00 Pulse Ox 96 04/14/22 12:00 O2 Del Method 04/14/22 12:00 O2 Flow Rate 3 04/13/22 14:35 BMI result Body Mass Index 38.2 Objective Data Labs CBC & Chem 7: 04/13/22 15:50 04/14/22 07:16 Labs: Laboratory Results - last 24 hr 04/13/22 04/13/22 04/13/22 08:51 10:51 15:50 WBC RBC Hgb POC Hgb (Calc) 10.5 L Hct POC Hct 31 L MCV MCH MCHC RDW Plt Count MPV Immature Gran % (Auto) Neut % (Auto) Lymph % (Auto) [place] % (Auto) Eos % (Auto) Baso % (Auto) Lymph # (Auto) [place] # (Auto) Eos # (Auto) Baso # (Auto) Abs Immat Gran (auto) Absolute Neuts (auto) Absolute Nucleated RBC Nucleated RBC % (auto) PT INR aPTT Heparin Protocol Cancelled Fibrinogen POC Std Base Excess 7 H POC O2 Sat (Calc) 100 POC ABG pO2 206 H POC ABG Total CO2 34 H POC Capillary pH 7.35 POC Capillary pCO2 59 H POC Cap HCO3 (Calc) 32 H POC Sodium 138 Sodium POC Potassium 3.5 Potassium Chloride Carbon Dioxide Anion Gap BUN Creatinine Estim Creat Clear Calc Estimated GFR POC Glucose 161 H Random Glucose Lactic Acid Calcium Crossmatch See Detail 04/13/22 04/13/22 04/13/22 15:50 15:50 15:50 WBC 14.6 H RBC 3.27 L Hgb 10.0 L POC Hgb (Calc) Hct 30.0 L POC Hct MCV 91.7 MCH 30.6 MCHC 33.3 RDW 14.5 Plt Count 239 MPV 9.5 Immature Gran % (Auto) 0.5 H Neut % (Auto) 79.5 H Lymph % (Auto) 11.8 L [place] % (Auto) 7.7 Eos % (Auto) 0.3 Baso % (Auto) 0.2 Lymph # (Auto) 1.7 [place] # (Auto) 1.1 Eos # (Auto) 0.1 Baso # (Auto) 0.0 Abs Immat Gran (auto) 0.07 H Absolute Neuts (auto) 11.6 H Absolute Nucleated RBC 0.000 Nucleated RBC % (auto) 0.0 PT 11.6 INR 1.0 aPTT Heparin Protocol 26.0 L Fibrinogen > 700 H POC Std Base Excess POC O2 Sat (Calc) POC ABG pO2 POC ABG Total CO2 POC Capillary pH POC Capillary pCO2 POC Cap HCO3 (Calc) POC Sodium Sodium 139 POC Potassium Potassium 4.0 Chloride 104 Carbon Dioxide 27 Anion Gap 12 BUN 12 Creatinine 0.59 Estim Creat Clear Calc 121.2 Estimated GFR > 60 POC Glucose Random Glucose 196 H Lactic Acid Calcium 8.1 L D Crossmatch 04/13/22 04/13/22 04/13/22 16:23 18:27 20:46 WBC RBC Hgb POC Hgb (Calc) Hct POC Hct MCV MCH MCHC RDW Plt Count MPV Immature Gran % (Auto) Neut % (Auto) Lymph % (Auto) [place] % (Auto) Eos % (Auto) Baso % (Auto) Lymph # (Auto) [place] # (Auto) Eos # (Auto) Baso # (Auto) Abs Immat Gran (auto) Absolute Neuts (auto) Absolute Nucleated RBC Nucleated RBC % (auto) PT INR aPTT Heparin Protocol Fibrinogen > 700 H POC Std Base Excess POC O2 Sat (Calc) POC ABG pO2 POC ABG Total CO2 POC Capillary pH POC Capillary pCO2 POC Cap HCO3 (Calc) POC Sodium Sodium POC Potassium Potassium Chloride Carbon Dioxide Anion Gap BUN Creatinine Estim Creat Clear Calc Estimated GFR POC Glucose 174 H 196 H Random Glucose Lactic Acid Calcium Crossmatch 04/13/22 04/14/22 04/14/22 22:32 07:06 07:14 WBC RBC Hgb POC Hgb (Calc) Hct POC Hct MCV MCH MCHC RDW Plt Count MPV Immature Gran % (Auto) Neut % (Auto) Lymph % (Auto) [place] % (Auto) Eos % (Auto) Baso % (Auto) Lymph # (Auto) [place] # (Auto) Eos # (Auto) Baso # (Auto) Abs Immat Gran (auto) Absolute Neuts (auto) Absolute Nucleated RBC Nucleated RBC % (auto) PT INR aPTT Heparin Protocol 41.7 L D 50.3 L D Fibrinogen POC Std Base Excess POC O2 Sat (Calc) POC ABG pO2 POC ABG Total CO2 POC Capillary pH POC Capillary pCO2 POC Cap HCO3 (Calc) POC Sodium Sodium POC Potassium Potassium Chloride Carbon Dioxide Anion Gap BUN Creatinine Estim Creat Clear Calc Estimated GFR POC Glucose 208 H Random Glucose Lactic Acid Calcium Crossmatch 04/14/22 04/14/22 04/14/22 07:16 07:16 11:28 WBC RBC Hgb POC Hgb (Calc) Hct POC Hct MCV MCH MCHC RDW Plt Count MPV Immature Gran % (Auto) Neut % (Auto) Lymph % (Auto) [place] % (Auto) Eos % (Auto) Baso % (Auto) Lymph # (Auto) [place] # (Auto) Eos # (Auto) Baso # (Auto) Abs Immat Gran (auto) Absolute Neuts (auto) Absolute Nucleated RBC Nucleated RBC % (auto) PT INR aPTT Heparin Protocol Fibrinogen POC Std Base Excess POC O2 Sat (Calc) POC ABG pO2 POC ABG Total CO2 POC Capillary pH POC Capillary pCO2 POC Cap HCO3 (Calc) POC Sodium Sodium 138 POC Potassium Potassium 4.0 Chloride 101 Carbon Dioxide 27 Anion Gap 14 BUN 12 Creatinine 0.60 Estim Creat Clear Calc 119.2 Estimated GFR > 60 POC Glucose 251 H Random Glucose 221 H Lactic Acid 0.7 Calcium 8.1 L Crossmatch Quality Stroke Does the patient have a stroke diagnosis?: No VTE Prior VTE?: No VTE Risk Level:: Medical - moderate - high VTE Device Contraindication: N/A - Device Ordered VTE Drug Contraindication: N/A - Med Ordered
--- NOTE | 2022-04-14 13:50 | PC.NURSE ---
ROSI REMOVED AT 0730 PER SURGEON POST AM BEDSIDE CONSULT WITH PATIENT, RN BEDSIDE.
[2022-04-14 16:05] LABS: Glucose, Whole Blood 286 mg/dL (60-115)
[2022-04-14] MEDS: Heparin Sodium,Porcine/1/2NS 25,000 UNIT/250 ML IV.SOLN 20.54 UNIT IVCONT (17:12)
--- NOTE | 2022-04-14 19:49 | HO.POSTANES ---
Post Anesthesia Evaluation Post Anesthesia Evaluation Vital Signs: Vital Signs Temp Pulse Resp BP Pulse Ox O2 Del Method 04/14/22 19:41 98.3 F 92 15 158/68 H 95 Room Air 04/14/22 15:18 98.9 F 109 H 16 143/66 H 95 Room Air 04/14/22 14:00 97.5 F 107 H 15 168/77 H 98 Room Air 04/14/22 12:00 98.7 F 99 19 125/67 96 Room Air 04/14/22 11:00 99 23 H 127/60 100 Room Air 04/14/22 10:00 100 22 H 127/60 96 Room Air 04/14/22 09:00 107 H 22 H 111/58 L 95 Room Air 04/14/22 08:00 98.7 F 103 H 16 130/58 L 96 Room Air Anesthesia: Monitored Mental Status: Awake Pain Control: Satisfactory Nausea/Vomiting: None Hydration: Adequate Anesthesia-Related Issues: No Anes. Related Issues
[2022-04-14 20:23] LABS: Glucose, Whole Blood 198 mg/dL (60-115)
[2022-04-14] MEDS: oxyCODONE HCl Immed Release 5 MG TABLET 10 MG PO (20:35)
[2022-04-14] MEDS: traZODone HCL 50 MG TABLET PO (20:36)
[2022-04-14] MEDS: Atorvastatin Calcium 40 MG TABLET PO (20:36)
[2022-04-14] MEDS: Insulin Glargine,Hum.rec.anlog 100 UNIT/ML 10 ML VIAL 35 UNIT SUBCUT (20:37)
[2022-04-14 22:14] LABS: PTT Heparin Drip 53.5 SEC (53-77.9)
--- NOTE | 2022-04-15 | ECG_ITS ---
Test Reason : CP Blood Pressure : / mmHG Vent. Rate : 086 BPM Atrial Rate : 086 BPM P-R Int : 126 ms QRS Dur : 102 ms QT Int : 374 ms P-R-T Axes : 048 000 247 degrees QTc Int : 447 ms Normal sinus rhythm Incomplete right bundle branch block ST & T wave abnormality, consider anterolateral ischemia Abnormal ECG When compared with ECG of 13-APR-2022 14:22, Premature ventricular complexes are no longer Present Incomplete right bundle branch block is now Present QT has shortened Referred By: Nabor Dent Electronically Signed By:JV COTTON
[2022-04-15] MEDS: HYDROmorphone HCl 0.5 MG/0.5 ML SYRINGE IVPUSH ×2 (00:10→22:03)
[2022-04-15 04:00] VITALS: BP 137/61; PULSE 86; RESP 17; TEMP 36.9; O2SAT 97
[2022-04-15 04:20] LABS: MANUAL DIFF FLAG NO
[2022-04-15 04:21] LABS: Basophils Percent Auto 0.2 % (0-2); Eosinophils Absolute Auto 0.3 X10*3/uL (0.0-0.4); Eosinophils Percent Auto 1.8 % (0-4); Hematocrit 27.3 % (37.0-47.0); Imm Gran Abs Auto 0.07 X10*3/uL (0.00-0.03); Imm Gran Pct Auto 0.5 % (0.0-0.4); Lymphocytes Absolute Auto 3.2 X10*3/uL (1.2-4.9); Mean Corpuscular Hemoglobin 30.4 pg (27.0-33.0); Mean Corpuscular Volume 92.2 fL (80.0-98.0); Mean Platelet Volume 9.4 fL (9.4-12.3); Monocytes Absolute Auto 1.3 X10*3/uL (0.1-1.2); Monocytes Percent Auto 8.4 % (2-11); Neutrophils Absolute Auto 10.3 x10*3/uL (2.0-8.3); Neutrophils Percent Auto 68.1 % (45-73); Platelet Count 265 X10*3/uL (160-400); Red Blood Count 2.96 X10*6/uL (4.20-5.50); Red Cell Distribution Width 14.2 % (11.0-16.0); White Blood Count 15.2 X10*3/uL (4.8-10.8)
[2022-04-15 04:49] LABS: Alanine Aminotransferase 56 U/L (0-31); Albumin Level 3.1 g/dL (3.5-5.0); Alkaline Phosphatase 63 U/L (39-117); Anion Gap 13 (12-20); Aspartate Amino Transferase 109 U/L (5-31); Bilirubin Total 0.4 mg/dL (0.0-1.0); Blood Urea Nitrogen 11 mg/dL (9-16); Calcium 8.3 mg/dL (8.4-10.2); Carbon Dioxide 29 mmol/L (22-29); Chloride 101 mmol/L (96-108); Creatinine Clr Calc Pharmacy 121.2; Estimated Glomerular Filt Rate > 60; Glucose Fasting 156 mg/dL (60-99); Potassium 3.6 mmol/L (3.3-5.1); Sodium 139 mmol/L (135-145); Total Protein 5.6 g/dL (6.5-8.0)
[2022-04-15] MEDS: Heparin Sodium,Porcine/1/2NS 25,000 UNIT/250 ML IV.SOLN 20.54 UNIT IVCONT ×2 (05:34→19:18)
[2022-04-15 07:17] LABS: Glucose, Whole Blood 153 mg/dL (60-115)
[2022-04-15 07:35] VITALS: BP 137/79; PULSE 85; RESP 16; TEMP 37.2; O2SAT 93
[2022-04-15] MEDS: Aspirin 325 MG TABLET PO ×2 (07:44→21:57)
[2022-04-15] MEDS: Celecoxib 200 MG CAPSULE PO ×2 (07:45→21:57)
[2022-04-15] MEDS: Docusate Sodium 100 MG CAPSULE PO ×2 (07:45→21:57)
[2022-04-15] MEDS: oxyCODONE HCl ER 10 MG TAB.ER.12H PO (07:45)
[2022-04-15] MEDS: Insulin Lispro 100 UNIT/ML 3 ML VIAL SUBCUT ×4 (08:42→22:05)
[2022-04-15] MEDS: Insulin Glargine,Hum.rec.anlog 100 UNIT/ML 10 ML VIAL 35 UNIT SUBCUT ×2 (08:42→22:04)
--- NOTE | 2022-04-15 09:55 | PM.PNORT ---
Subjective Subjective Date of Service: 04/15/22 Principal diagnosis: PAD s/p left TKA with SFA/Popliteal artery thrombosis Interval history: Patient is resting in bed comfortably. No overnight events. Pain is managed. Continues to have calf pain. Foot is cold and unable to dorsiflex. Reports that there may be better sensation this morning. Physical Exam Vital Signs: Vital Signs: Last Vital Signs Temp 99.0 F 04/15/22 07:35 Pulse 85 04/15/22 07:35 Resp 16 04/15/22 07:35 BP 137/79 04/15/22 07:35 Pulse Ox 93 04/15/22 07:35 O2 Del Method 04/15/22 07:35 O2 Flow Rate 3 04/13/22 14:35 BMI result Body Mass Index 38.2 Extrem: Other: Aquacel is clean, dry, and intact. No drainage or erythema. 0-45 deg of motion with weak straight leg raise with assistance. Left foot unable to move digits and sensation decreased to touch over dorsum of foot. However, patient reports better sensation than yesterday. Cool to touch with decreased cap refill mottled appearance. Procedures Date of Service Date of Service: 04/15/22 Progress Note: A&P Assessment and plan (1) Acute coronary syndrome: Status: Acute (2) Diabetes: Status: Acute (3) Thrombosis of left popliteal artery: Status: Acute (4) Status post total knee replacement: Status: Acute Assessment and Plan: PT as per protocol Pain management Vascular to continue monitoring ischemic foot (5) PAD (peripheral artery disease): Status: Acute Time Spent With Patient Time: Total time spent is greater than 50% in coordination of care (as documented) at patient's floor/unit and/or counseling patient: Quality Stroke Does the patient have a stroke diagnosis?: No VTE Prior VTE?: No VTE Risk Level:: Medical - moderate - high VTE Device Contraindication: N/A - Device Ordered VTE Drug Contraindication: N/A - Med Ordered
[2022-04-15 10:01] LABS: Troponin-I High Sensitivity 14.8 ng/L (<3.5-17.0)
--- NOTE | 2022-04-15 11:08 | P.PNCA_ITS ---
Subjective Subjective Date of Service: 04/15/22 Principal diagnosis: PAD s/p left TKA with SFA/Popliteal artery thrombosis Interval history: She is denying any chest pain. No other cardiac symptoms. Review of Systems Review of Systems Yes all other systems are reviewed and are negative Constitutional: Reports as per HPI Eyes: Reports as per HPI Reports as per HPI Cardiovascular: Reports as per HPI, Denies acrocyanosis, Denies cool extremities, Denies chest pain, Denies leg edema, Denies lightheadedness, Denies palpitations and Denies dyspnea Respiratory: Reports as per HPI, Reports no additional respiratory complaints and Denies dyspnea Gastrointestinal: Reports as per HPI and Reports no additional gastrointestinal complaints Genitourinary: Reports as per HPI Musculoskeletal: Reports no additional musculoskeletal complaints and Reports as per HPI Skin/Breast: Reports system reviewed and no additional complaints, except as docu Reports system reviewed and no additional complaints, except as documented and Reports as per HPI Psychiatric: Reports no additional psychiatric complaints and Reports as per HPI Endocrine: Reports no additional endocrine complaints, Reports as per HPI and Denies palpitations Hematologic/Lymphatic: Reports no additional hematologic/lymphatic complaints and Reports as per HPI Allergic/Immunologic: Reports no additional allergic/immunologic complaints and Reports as per HPI Physical Exam Vital Signs: Last Vital Signs Temp 99.0 F 04/15/22 07:35 Pulse 85 04/15/22 07:35 Resp 16 04/15/22 07:35 BP 137/79 04/15/22 07:35 Pulse Ox 93 04/15/22 07:35 O2 Del Method 04/15/22 07:35 O2 Flow Rate 3 04/13/22 14:35 BMI result Body Mass Index 38.2 Const General: comfortable and no acute distress Orientation/consciousness: patient oriented x3 HEENT Other: Unremarkable Head: Yes normal to inspection Neck Neck: Yes normal visual inspection Chest Chest palpation & inspection: normal inspection of the chest Resp Auscultation: clear to auscultation bilaterally Cardio Palpation: normal PMI Heart sounds: S1 normal heart sound present, S2 normal heart sound present, no gallops, no murmurs and no rubs GI Palpation (GI): Soft to palpation Back/Spine/Pelvis Other: unremarkable Skin General skin exam: no rashes or lesions noted Neuro General: patient oriented x3 Extrem Other: Left leg is cooler than right side. No significant edema bilaterally. Psych Mental Status: mental status grossly normal Objective Labs and Meds Result diagrams: 04/15/22 04:01 04/15/22 04:01 Lab results: Laboratory Results - last 24 hr 04/14/22 04/14/22 04/14/22 11:28 15:29 16:02 WBC RBC Hgb Hct MCV MCH MCHC RDW Plt Count MPV Immature Gran % (Auto) Neut % (Auto) Lymph % (Auto) [place] % (Auto) Eos % (Auto) Baso % (Auto) Lymph # (Auto) [place] # (Auto) Eos # (Auto) Baso # (Auto) Abs Immat Gran (auto) Absolute Neuts (auto) Absolute Nucleated RBC Nucleated RBC % (auto) aPTT Heparin Protocol 64.0 D Sodium Potassium Chloride Carbon Dioxide Anion Gap BUN Creatinine Estim Creat Clear Calc Estimated GFR POC Glucose 251 H 286 H Fasting Glucose Calcium Total Bilirubin AST ALT Alkaline Phosphatase Troponin I High Sens Total Protein Albumin 04/14/22 04/14/22 04/15/22 19:47 21:42 04:01 WBC 15.2 H RBC 2.96 L Hgb 9.0 L Hct 27.3 L MCV 92.2 MCH 30.4 MCHC 33.0 RDW 14.2 Plt Count 265 MPV 9.4 Immature Gran % (Auto) 0.5 H Neut % (Auto) 68.1 Lymph % (Auto) 21.0 [place] % (Auto) 8.4 Eos % (Auto) 1.8 Baso % (Auto) 0.2 Lymph # (Auto) 3.2 [place] # (Auto) 1.3 H Eos # (Auto) 0.3 Baso # (Auto) 0.0 Abs Immat Gran (auto) 0.07 H Absolute Neuts (auto) 10.3 H Absolute Nucleated RBC 0.000 Nucleated RBC % (auto) 0.0 aPTT Heparin Protocol 53.5 Sodium Potassium Chloride Carbon Dioxide Anion Gap BUN Creatinine Estim Creat Clear Calc Estimated GFR POC Glucose 198 H Fasting Glucose Calcium Total Bilirubin AST ALT Alkaline Phosphatase Troponin I High Sens Total Protein Albumin 04/15/22 04/15/22 04/15/22 04:01 04:01 04:01 WBC RBC Hgb Hct MCV MCH MCHC RDW Plt Count MPV Immature Gran % (Auto) Neut % (Auto) Lymph % (Auto) [place] % (Auto) Eos % (Auto) Baso % (Auto) Lymph # (Auto) [place] # (Auto) Eos # (Auto) Baso # (Auto) Abs Immat Gran (auto) Absolute Neuts (auto) Absolute Nucleated RBC Nucleated RBC % (auto) aPTT Heparin Protocol 63.0 Sodium 139 Potassium 3.6 Chloride 101 Carbon Dioxide 29 Anion Gap 13 BUN 11 Creatinine 0.59 Estim Creat Clear Calc 121.2 Estimated GFR > 60 POC Glucose Fasting Glucose 156 H Calcium 8.3 L Total Bilirubin 0.4 AST 109 H ALT 56 H Alkaline Phosphatase 63 Troponin I High Sens 14.8 D Total Protein 5.6 L Albumin 3.1 L 04/15/22 07:01 WBC RBC Hgb Hct MCV MCH MCHC RDW Plt Count MPV Immature Gran % (Auto) Neut % (Auto) Lymph % (Auto) [place] % (Auto) Eos % (Auto) Baso % (Auto) Lymph # (Auto) [place] # (Auto) Eos # (Auto) Baso # (Auto) Abs Immat Gran (auto) Absolute Neuts (auto) Absolute Nucleated RBC Nucleated RBC % (auto) aPTT Heparin Protocol Sodium Potassium Chloride Carbon Dioxide Anion Gap BUN Creatinine Estim Creat Clear Calc Estimated GFR POC Glucose 153 H Fasting Glucose Calcium Total Bilirubin AST ALT Alkaline Phosphatase Troponin I High Sens Total Protein Albumin Progress Note: A&P Assessment and plan (1) Acute coronary syndrome: Status: Acute (2) Thrombosis of left popliteal artery: Status: Acute (3) Status post total knee replacement: Status: Acute (4) PAD (peripheral artery disease): Status: Acute Plan EKG from today sent to me by [facility] but not in the EMR-sinus rhythm with inverted Ts across the precordial leads and similar to the recent once. However, this finding is new in this admission and not seen in the outpatient EKG. Slight troponin leak. Echocardiogram without any clear wall motion abnormalities. Overall, probable LAD territory ischemia based on extensive vascular disease history. There is continuing concern for ischemic foot on the left side. Not clear what the plan will be. Per vascular. Currently on heparin drip, aspirin, statins. Also on insulin. At some point, need to consider diagnostic catheterization once the vascular issues sorted out. Discussed with Dr. Dent. Time Spent With Patient Time: Total time spent is greater than 50% in coordination of care (as documented) at patient's floor/unit and/or counseling patient: 35min. Progress Note: Quality Stroke Does the patient have a stroke diagnosis?: No Procedures Date of Service Date of Service: 04/15/22
[2022-04-15 11:15] LABS: Glucose, Whole Blood 276 mg/dL (60-115)
[2022-04-15 11:48] VITALS: BP 144/68; PULSE 84; RESP 16; TEMP 36.7; O2SAT 96
--- NOTE | 2022-04-15 11:56 | HO.PM.IMPN ---
Subjective Subjective Date of Service: 04/15/22 Interval History: States may be more sensation to lower leg than yesterday. Voices no cardiac complaints Review of Systems denies chest pain Denies shortness of breath Denies nausea vomiting diarrhea denies fever chills Physical Exam Vital Signs: Vital Signs: Last Vital Signs Temp 98.1 F 04/15/22 11:48 Pulse 84 04/15/22 11:48 Resp 16 04/15/22 11:48 BP 144/68 H 04/15/22 11:48 Pulse Ox 96 04/15/22 11:48 O2 Del Method 04/15/22 11:48 O2 Flow Rate 3 04/13/22 14:35 BMI result Body Mass Index 38.2 Const: Other: no acute issues Resp: Other: clear to auscultation bilaterally no rales rhonchi or wheezes Cardio: Other: no S4; positive S1-S2; no S3 murmurs rubs or gallops Extrem: Other: left foot and ankle cold to touch; sensation and movement ankle distally absent Objective Data Active Medications Acetaminophen (Acetaminophen 325 Mg Tablet) 650 mg PO Q6H PRN PRN Reason: Pain, Mild (Pain Scale 1-3) Last Admin: 04/10/22 17:09 Dose: 650 mg Documented By: DAWIT Aspirin (Aspirin 325 Mg Tablet) 325 mg PO BID [facility] Last Admin: 04/15/22 07:44 Dose: 325 mg Documented By: NEGRITA Atorvastatin Calcium (Atorvastatin Calcium 40 Mg Tablet) 40 mg PO BEDTIME [facility] Last Admin: 04/14/22 20:36 Dose: 40 mg Documented By: ETHEL Celecoxib (Celecoxib 200 Mg Capsule) 200 mg PO BID [facility] Last Admin: 04/15/22 07:45 Dose: 200 mg Documented By: NEGRITA Dextrose (Dextrose 50 % 25 Gm/50 Ml Syringe) 25 gm IVPUSH Q15M PRN; Protocol PRN Reason: per Hypoglycemia Standing Ord. Docusate Sodium (Docusate Sodium 100 Mg Capsule) 100 mg PO BID [facility] Last Admin: 04/15/22 07:45 Dose: 100 mg Documented By: NEGRITA Glucose (Glucose Gel 15 Gm Gel..Gram.) 15 gm PO Q15M PRN; Protocol PRN Reason: per Hypoglycemia Standing Ord. Heparin Sodium (Porcine) (Heparin Sodium,Porcine 5,000 Unit/Ml Vial) 4,100 unit 40 unit/kg (4100 unit) IVPUSH PROTOCOL BOLUS PRN; Protocol PRN Reason: 40 unit/kg - Heparin Protocol Last Admin: 04/14/22 08:14 Dose: 4,100 unit Documented By: CHRISTIE Heparin Sodium (Porcine) (Heparin Sodium,Porcine 5,000 Unit/Ml Vial) 8,200 unit 80 unit/kg (8200 unit) IVPUSH PROTOCOL BOLUS PRN; Protocol PRN Reason: 80 unit/kg - Heparin Protocol Hydromorphone HCl (Hydromorphone Hcl 0.5 Mg/0.5 Ml Syringe) 0.5 mg IVPUSH Q4H PRN; Protocol PRN Reason: Pain, Severe (Pain Scale 7-10) Last Admin: 04/15/22 00:10 Dose: 0.5 mg Documented By: ETHEL Heparin Sodium/Sodium Chloride (Heparin Sodium,Porcine/1/2ns) 25,000 unit in 250 mls @ 0 mls/hr IVCONT .Q0M [facility]; Protocol Last Admin: 04/15/22 05:34 Dose: 20 units/kg/hr, 20.54 mls/hr Documented By: ETHEL Co-signed By: SERGE Insulin Glargine (Insulin Glargine,Hum.Rec.Anlog 100 Unit/Ml 10 Ml Vial) 35 unit SUBCUT BID [facility] Last Admin: 04/15/22 08:42 Dose: 35 unit Documented By: NEGRITA Insulin Human Lispro (Insulin Lispro 100 Unit/Ml 3 Ml Vial) 0 unit SUBCUT QIDACHS [facility]; Protocol Last Admin: 04/15/22 08:42 Dose: 2 unit Documented By: NEGRITA Oxycodone HCl (Oxycodone Hcl Er 10 Mg Tab.Er.12h) 10 mg PO BID [facility] Last Admin: 04/15/22 07:45 Dose: 10 mg Documented By: NEGRITA Oxycodone HCl (Oxycodone Hcl Immed Release 5 Mg Tablet) 10 mg PO Q3H PRN PRN Reason: Pain, Moderate (Pain Scale 4-6 Last Admin: 04/14/22 20:35 Dose: 10 mg Documented By: ETHEL Polyethylene Glycol (Polyethylene Glycol 3350 17 Gm Powd.Pack) 17 gm PO DAILY PRN PRN Reason: Constipation Sodium Chloride (0.9 % Sodium Chloride Flush 3 Ml Syringe) 3 ml IVFLUSH QSHIFT BRAND[facility] Last Admin: 04/15/22 08:44 Dose: Not Given Documented By: NEGRITA Non-Admin Reason: IV Running Tramadol HCl (Tramadol Hcl 50 Mg Tablet) 50 mg PO Q4H PRN PRN Reason: Pain, Moderate (Pain Scale 4-6 Last Admin: 04/12/22 11:05 Dose: 50 mg Documented By: OLEG Trazodone HCl (Trazodone Hcl 50 Mg Tablet) 50 mg PO BEDTIME PRN PRN Reason: insomnia Last Admin: 04/14/22 20:36 Dose: 50 mg Documented By: ETHEL Labs CBC & Chem 7: 04/15/22 04:01 04/15/22 04:01 Labs: Laboratory Results - last 24 hr 04/14/22 04/14/22 04/14/22 15:29 16:02 19:47 MCV MCH MCHC RDW Plt Count MPV Immature Gran % (Auto) Neut % (Auto) Lymph % (Auto) [place] % (Auto) Eos % (Auto) Baso % (Auto) Lymph # (Auto) [place] # (Auto) Eos # (Auto) Baso # (Auto) Abs Immat Gran (auto) Absolute Neuts (auto) Absolute Nucleated RBC Nucleated RBC % (auto) aPTT Heparin Protocol 64.0 D Anion Gap Estim Creat Clear Calc Estimated GFR POC Glucose 286 H 198 H Fasting Glucose Calcium Total Bilirubin AST ALT Alkaline Phosphatase Total Protein Albumin 04/14/22 04/15/22 04/15/22 21:42 04:01 04:01 MCV 92.2 MCH 30.4 MCHC 33.0 RDW 14.2 Plt Count 265 MPV 9.4 Immature Gran % (Auto) 0.5 H Neut % (Auto) 68.1 Lymph % (Auto) 21.0 [place] % (Auto) 8.4 Eos % (Auto) 1.8 Baso % (Auto) 0.2 Lymph # (Auto) 3.2 [place] # (Auto) 1.3 H Eos # (Auto) 0.3 Baso # (Auto) 0.0 Abs Immat Gran (auto) 0.07 H Absolute Neuts (auto) 10.3 H Absolute Nucleated RBC 0.000 Nucleated RBC % (auto) 0.0 aPTT Heparin Protocol 53.5 Anion Gap 13 Estim Creat Clear Calc 121.2 Estimated GFR > 60 POC Glucose Fasting Glucose 156 H Calcium 8.3 L Total Bilirubin 0.4 AST 109 H ALT 56 H Alkaline Phosphatase 63 Total Protein 5.6 L Albumin 3.1 L 04/15/22 04/15/22 04/15/22 04:01 07:01 10:57 MCV MCH MCHC RDW Plt Count MPV Immature Gran % (Auto) Neut % (Auto) Lymph % (Auto) [place] % (Auto) Eos % (Auto) Baso % (Auto) Lymph # (Auto) [place] # (Auto) Eos # (Auto) Baso # (Auto) Abs Immat Gran (auto) Absolute Neuts (auto) Absolute Nucleated RBC Nucleated RBC % (auto) aPTT Heparin Protocol 63.0 Anion Gap Estim Creat Clear Calc Estimated GFR POC Glucose 153 H 276 H Fasting Glucose Calcium Total Bilirubin AST ALT Alkaline Phosphatase Total Protein Albumin Assessment and Plan (1) Thrombosis of left popliteal artery: Status: Acute (2) Status post total knee replacement: Status: Acute (3) Acute coronary syndrome: Status: Acute (4) Hypertension: Status: Acute (5) Diabetes: Status: Acute Plan 56-year-old female status post left total knee replacement (pod 2) developed cool left foot; arterial runoff consistent with left popliteal thrombus. From an orthopedic standpoint stable 1. Left popliteal thrombus( status post thrombectomy POD2). - still no movement or sensation mid tibia distally on left - continue heparin drip 2. Status post left TKA - as per Ortho 3.ACS - troponins flat this a.m.; EK with persistent TWI in precordial leads - continue heparin drip/ statin/ASA - 4.HTN - acceptable control on current therapies - adjust as indicated 5.Diabetes type 2 - acceptable control on home insulin regimen - continue lispro correctional scale heparin full code Quality Stroke Does the patient have a stroke diagnosis?: No VTE Prior VTE?: No VTE Risk Level:: Medical - moderate - high VTE Device Contraindication: N/A - Device Ordered VTE Drug Contraindication: N/A - Med Ordered
[2022-04-15] MEDS: Acetaminophen 325 MG TABLET 650 MG PO ×2 (11:58→21:59)
[2022-04-15] MEDS: oxyCODONE HCl Immed Release 5 MG TABLET 10 MG PO ×2 (11:59→16:07)
--- NOTE | 2022-04-15 12:02 | PC.NURSE ---
Patietn amulated a few steps on own, transferred to bathroom with lift assist. Passed gas no BM. Weak dp pulse left foot. Numb . Warm.
--- NOTE | 2022-04-15 13:21 | PC.NURSE ---
left foot, cool. mottled, faint +doppler PT pulse.
[2022-04-15 15:57] VITALS: BP 136/65; PULSE 80; RESP 15; O2SAT 97
[2022-04-15 16:17] LABS: Glucose, Whole Blood 170 mg/dL (60-115)
[2022-04-15] MEDS: 0.9 % Sodium Chloride Flush 3 ML SYRINGE IVFLUSH (16:17)
[2022-04-15 19:55] LABS: Glucose, Whole Blood 236 mg/dL (60-115)
[2022-04-15 20:00] VITALS: BP 138/62; PULSE 97; RESP 14; TEMP 37.1; O2SAT 94
[2022-04-15] MEDS: Atorvastatin Calcium 40 MG TABLET PO (21:57)
[2022-04-16] VITALS: BP 143/71; PULSE 92; RESP 20; TEMP 36.1; O2SAT 95
[2022-04-16 03:00] VITALS: BP 162/77; PULSE 90; RESP 20; TEMP 37.2; O2SAT 94
[2022-04-16] MEDS: HYDROmorphone HCl 0.5 MG/0.5 ML SYRINGE IVPUSH (03:07)
[2022-04-16 06:57] LABS: MANUAL DIFF FLAG NO
[2022-04-16 06:59] LABS: Basophils Absolute Auto 0.1 X10*3/uL (0.0-0.2); Basophils Percent Auto 0.4 % (0-2); Eosinophils Absolute Auto 0.4 X10*3/uL (0.0-0.4); Eosinophils Percent Auto 2.6 % (0-4); Hematocrit 28.1 % (37.0-47.0); Hemoglobin 9.4 g/dl (12.0-16.0); Imm Gran Pct Auto 0.7 % (0.0-0.4); Lymphocytes Absolute Auto 2.5 X10*3/uL (1.2-4.9); Lymphocytes Percent Auto 17.2 % (20-40); Mean Corpuscular HGB Conc 33.5 g/dl (31.0-35.0); Mean Corpuscular Hemoglobin 30.5 pg (27.0-33.0); Mean Corpuscular Volume 91.2 fL (80.0-98.0); Mean Platelet Volume 9.4 fL (9.4-12.3); Monocytes Absolute Auto 1.3 X10*3/uL (0.1-1.2); Monocytes Percent Auto 8.6 % (2-11); Neutrophils Absolute Auto 10.2 x10*3/uL (2.0-8.3); Neutrophils Percent Auto 70.5 % (45-73); Platelet Count 306 X10*3/uL (160-400); Red Blood Count 3.08 X10*6/uL (4.20-5.50); Red Cell Distribution Width 13.9 % (11.0-16.0); White Blood Count 14.5 X10*3/uL (4.8-10.8)
[2022-04-16 07:08] LABS: PTT Heparin Drip 63.6 SEC (53-77.9)
[2022-04-16 07:31] LABS: Alanine Aminotransferase 85 U/L (0-31); Albumin Level 3.2 g/dL (3.5-5.0); Alkaline Phosphatase 69 U/L (39-117); Anion Gap 16 (12-20); Aspartate Amino Transferase 131 U/L (5-31); Bilirubin Total 0.5 mg/dL (0.0-1.0); Blood Urea Nitrogen 14 mg/dL (9-16); Calcium 8.6 mg/dL (8.4-10.2); Carbon Dioxide 26 mmol/L (22-29); Chloride 101 mmol/L (96-108); Creatinine Clr Calc Pharmacy 117.2; Estimated Glomerular Filt Rate > 60; Glucose Fasting 202 mg/dL (60-99); Potassium 4.1 mmol/L (3.3-5.1); Sodium 139 mmol/L (135-145); Total Protein 5.8 g/dL (6.5-8.0)
[2022-04-16 07:38] VITALS: BP 174/81; PULSE 79; RESP 18; TEMP 37; O2SAT 98
[2022-04-16] MEDS: Heparin Sodium,Porcine/1/2NS 25,000 UNIT/250 ML IV.SOLN 20.54 UNIT IVCONT (07:41)
[2022-04-16 07:47] LABS: Glucose, Whole Blood 195 mg/dL (60-115)
[2022-04-16] MEDS: Celecoxib 200 MG CAPSULE PO (08:14)
[2022-04-16] MEDS: Aspirin 325 MG TABLET PO (08:14)
[2022-04-16] MEDS: Insulin Glargine,Hum.rec.anlog 100 UNIT/ML 10 ML VIAL 35 UNIT SUBCUT (08:14)
[2022-04-16] MEDS: Docusate Sodium 100 MG CAPSULE PO (08:14)
[2022-04-16] MEDS: polyethylene glycoL 3350 17 GM POWD.PACK PO (08:14)
[2022-04-16] MEDS: Insulin Lispro 100 UNIT/ML 3 ML VIAL SUBCUT ×2 (08:15→12:50)
--- NOTE | 2022-04-16 09:43 | HO.VASCPN ---
Subjective Subjective Date of Service: 04/16/22 Patient reports: no new complaints and feels better Interval history: Patient seen and examined. Events over the weekend noted. Overall appears to be doing relatively well. Still has a nonfunctional left foot. In general good spirits appears to be doing relatively well. Being maintained on a heparin drip. Patient was seen with the cardiology and medicine team this morning Physical Exam Vital Signs: Vital Signs: Last Vital Signs Temp 98.6 F 04/16/22 07:38 Pulse 79 04/16/22 07:38 Resp 18 04/16/22 07:38 BP 174/81 H 04/16/22 07:38 Pulse Ox 98 04/16/22 07:38 O2 Del Method 04/16/22 07:38 O2 Flow Rate 3 04/13/22 14:35 BMI result Body Mass Index 38.2 Const: General: cooperative, healthy appearing and comfortable Orientation/consciousness: oriented to person, oriented to place and oriented to time HEENT: Head: Yes normal to inspection Neck: Neck: Yes normal visual inspection Carotids: no bruits Chest: Chest palpation & inspection: normal inspection of the chest Resp: Effort & Inspection: normal respiratory effort and able to speak in complete sentences Auscultation: clear to auscultation bilaterally, no crackles, no rales, no rhonchi and no wheezes Cardio: Rate: regular rate Rhythm: regular rhythm Heart sounds: S1 normal heart sound present and S2 normal heart sound present Bruits: no carotid bruits Peripheral pulses: other (Left side popliteal triphasic signal no DP or PT signal noted) GI: Inspection: Yes normal to inspection Skin: Other: Left foot core Wounds: no wounds Hair: normal Neuro: General: oriented to person, oriented to place and oriented to time Cranial nerves: Yes CN's II-XII intact bilaterally and Yes Normal hearing present Cognition (Neuro): normal cognition Motor exam (neuro): 5/5 motor strength present throughout Extrem: Other: venous exam: No significant superficial varicosities or spider telangiectasias, minimal edema General: No clubbing, No cyanosis and No edema Psych: Appearance: grossly normal Mental Status: mental status grossly normal Speech and movement: Normal speech and movement present Progress Note: A&P Assessment and plan (1) PAD (peripheral artery disease): Status: Acute Assessment and Plan: In short patient had an embolic event. She underwent attempted thrombolysis with tPA which did not improve she subsequently underwent embolectomy. She has remained stable throughout the weekend. The leg appears to be doing relatively well the foot still appears to be equal. At the current time she is stable from a vascular standpoint. Would not recommend any additional interventions as it appears to be terminal vessels that have occluded. We will see how she regains functionality of the knee. She is at high risk for at BKA versus AKA. This was discussed with the patient and the patient's who was on the phone. She is stable from a vascular perspective. She will need long-term formal anticoagulation. PT as tolerated. Would like to gain functionality of that knee. She will be transferred to [facility] for cardiac catheterization. Thank you for allowing us to assist in her care. If there are any questions or concerns please do not hesitate to contact us. Time Spent With Patient Time: Total time spent is greater than 50% in coordination of care (as documented) at patient's floor/unit and/or counseling patient: Procedures Date of Service Date of Service: 04/16/22 Quality Stroke Does the patient have a stroke diagnosis?: No VTE Prior VTE?: No VTE Risk Level:: Medical - moderate - high VTE Device Contraindication: N/A - Device Ordered VTE Drug Contraindication: N/A - Med Ordered
--- NOTE | 2022-04-16 10:13 | PM.PNCARD ---
Subjective Subjective Date of Service: 04/16/22 Principal diagnosis: PAD s/p left TKA with SFA/Popliteal artery thrombosis Interval history: Patient with no cardiac symptoms. Denies palpitations or chest pain. No shortness of breath. As per vascular surgery her left lower extremity perfusion is stable and not in acute issue at this point in time. She maintains on IV heparin drip Review of Systems Constitutional: Reports no additional constitutional complaints Cardiovascular: Reports no additional cardiovascular complaints Respiratory: Reports no additional respiratory complaints Gastrointestinal: Reports no additional gastrointestinal complaints Genitourinary: Reports no additional female genitourinary complaints Musculoskeletal: Reports no additional musculoskeletal complaints Reports system reviewed and no additional complaints, except as documented Psychiatric: Reports no additional psychiatric complaints Physical Exam Vital Signs: Last Vital Signs Temp 98.6 F 04/16/22 07:38 Pulse 79 04/16/22 07:38 Resp 18 04/16/22 07:38 BP 174/81 H 04/16/22 07:38 Pulse Ox 98 04/16/22 07:38 O2 Del Method 04/16/22 07:38 O2 Flow Rate 3 04/13/22 14:35 BMI result Body Mass Index 38.2 Const General: cooperative, comfortable, no acute distress, alert and awake Nutritional Appearance: obese Orientation/consciousness: patient oriented x3 Neck Neck: Yes trachea midline, Yes supple and Yes no JVD Resp Effort & Inspection: normal respiratory effort Auscultation: clear to auscultation bilaterally Cardio Jugular venous distension: no JVD Palpation: normal PMI Rate: regular rate Rhythm: regular rhythm Heart sounds: S1 normal heart sound present, S2 normal heart sound present, no click, no gallops, no murmurs and no rubs GI Auscultation: normal bowel sounds Skin General skin exam: no rashes or lesions noted Neuro General: patient oriented x3 and no focal motor deficits Objective Labs and Meds Result diagrams: 04/16/22 06:52 04/16/22 06:52 Lab results: Laboratory Results - last 24 hr 04/15/22 04/15/22 04/15/22 10:57 16:01 19:42 WBC RBC Hgb Hct MCV MCH MCHC RDW Plt Count MPV Immature Gran % (Auto) Neut % (Auto) Lymph % (Auto) [place] % (Auto) Eos % (Auto) Baso % (Auto) Lymph # (Auto) [place] # (Auto) Eos # (Auto) Baso # (Auto) Abs Immat Gran (auto) Absolute Neuts (auto) Absolute Nucleated RBC Nucleated RBC % (auto) aPTT Heparin Protocol Sodium Potassium Chloride Carbon Dioxide Anion Gap BUN Creatinine Estim Creat Clear Calc Estimated GFR POC Glucose 276 H 170 H 236 H Fasting Glucose Calcium Total Bilirubin AST ALT Alkaline Phosphatase Total Protein Albumin 04/16/22 04/16/22 04/16/22 06:52 06:52 06:52 WBC 14.5 H RBC 3.08 L Hgb 9.4 L Hct 28.1 L MCV 91.2 MCH 30.5 MCHC 33.5 RDW 13.9 Plt Count 306 MPV 9.4 Immature Gran % (Auto) 0.7 H Neut % (Auto) 70.5 Lymph % (Auto) 17.2 L [place] % (Auto) 8.6 Eos % (Auto) 2.6 Baso % (Auto) 0.4 Lymph # (Auto) 2.5 [place] # (Auto) 1.3 H Eos # (Auto) 0.4 Baso # (Auto) 0.1 Abs Immat Gran (auto) 0.10 H Absolute Neuts (auto) 10.2 H Absolute Nucleated RBC 0.000 Nucleated RBC % (auto) 0.0 aPTT Heparin Protocol 63.6 Sodium 139 Potassium 4.1 Chloride 101 Carbon Dioxide 26 Anion Gap 16 BUN 14 Creatinine 0.61 Estim Creat Clear Calc 117.2 Estimated GFR > 60 POC Glucose Fasting Glucose 202 H Calcium 8.6 Total Bilirubin 0.5 AST 131 H ALT 85 H Alkaline Phosphatase 69 Total Protein 5.8 L Albumin 3.2 L 04/16/22 07:40 WBC RBC Hgb Hct MCV MCH MCHC RDW Plt Count MPV Immature Gran % (Auto) Neut % (Auto) Lymph % (Auto) [place] % (Auto) Eos % (Auto) Baso % (Auto) Lymph # (Auto) [place] # (Auto) Eos # (Auto) Baso # (Auto) Abs Immat Gran (auto) Absolute Neuts (auto) Absolute Nucleated RBC Nucleated RBC % (auto) aPTT Heparin Protocol Sodium Potassium Chloride Carbon Dioxide Anion Gap BUN Creatinine Estim Creat Clear Calc Estimated GFR POC Glucose 195 H Fasting Glucose Calcium Total Bilirubin AST ALT Alkaline Phosphatase Total Protein Albumin Progress Note: A&P Assessment and plan (1) Acute coronary syndrome: Status: Acute Assessment and Plan: Findings of abnormal EKG suggestive of LAD territory ischemia as well as abnormal troponin in this middle-aged woman who developed acute left lower extremity ischemia requiring surgical thrombectomy/embolectomy, currently on IV heparin drip. Echo showing no significant wall motion abnormality. However given her multiple risk including prior peripheral artery disease and diabetes, as high likelihood of underlying obstructive coronary artery disease LAD territory. This needs to be ruled out. Other possibilities include stress-induced subendocardial ischemia and/or embolic event to the coronary arteries. Continue IV heparin. Blood pressure is elevated. Start metoprolol 25 mg q.6 hours. Continue high-intensity statin therapy and aspirin therapy. Further treatment based on the findings of cardiac catheterization. Risks, benefits, alternatives 2nd opinion were discussed with the patient. She understand agree. Patient with transfer to [facility] for cardiac catheterization for tomorrow. Thank you for allowing us to partake in the care Time Spent With Patient Time: Total time spent is greater than 50% in coordination of care (as documented) at patient's floor/unit and/or counseling patient: Progress Note: Quality Stroke Does the patient have a stroke diagnosis?: No Procedures Date of Service Date of Service: 04/16/22
--- NOTE | 2022-04-16 11:19 | PM.DS ---
DS: Providers Provider Date of Service: 04/16/22 Date of admission: 04/10/22 11:55 Date of discharge: 04/16/22 Primary care physician: Mihir Saleem MD Consults: 04/10/22 20:30 Consult to Hospitalist Routine Consulting Provider: Hospitalist Reason For Exam: diabetes 04/11/22 12:44 Consult to Vascular Surgery Routine Consulting Provider: Jorje Carbajal Reason for consultation: L foot cold s/p TKA 04/10, hx revascularization 202004/12/22 15:20 Consult to Cardiology Routine Consulting Provider: Geoff Scales Reason for consultation: Ischemic changes on EKG. Has provider been notified: Yes DS: Diagnosis Discharge Diagnosis (1) Acute coronary syndrome: Status: Acute DS: Summary Hospital Course Hospital Course: 56-year-old female past medical history of diabetes, as well as hypertension ? admitted to the hospital for elective? total knee arthroplasty on the left.(04/10/22). On postop day 1, patient was noted to have a cold left foot but did have some movement at that time. Subsequent duplex scan left lower extremity demonstrated occlusion of the left popliteal artery; heparin drip was instituted and Dr. Carbajal was consulted. Patient was taken to OR on 04/12/2022 during which a insertion of a thrombolysis catheter was done.She Remained on IV heparin and now tPA at 0.5 mg an hour through the thrombolysis catheter. On 04/13/22 She returned to OR for a follow-up left leg runoff after 24 hours of thrombolysis. It was noted that the popliteal artery was completely occluded so she was taken urgently to surgery. she underwent a left below knee popliteal cutdown/ thrombectomy popliteal / SFA anterior tibiall and posterior tibial and peroneal arteries / endarterectomy and patch plasty closure of popliteal artery. She was noted at that time to have deep T-wave inversions across the precordium; remained free of cardiac complaints at that time. Troponin peak 51.9. Seen in consultation by Cardiology. Echocardiogram done 04/13/2022 demonstrated normal left ventricular systolic function calculated at 63% and there were no wall motion abnormalities. at this time, patient's foot is still cool to touch without movement and sensation and is suspect that further intervention may need to be undertaken. Dr. Lopez spoke with Dr. Raven and it was felt prudent that patient undergo cardiac angiography to further define her vasculature. At this point she will be transferred to [facility] for cardiac catheterization; she will remain on heparin drip and aspirin and statin as ordered. From an orthopedic standpoint, her left TKA is without issue Time Spent with Patient Time attestation: Total time spent providing and/or coordinating discharge services: Discharge coordination time: Greater than 30 minutes Quality: Safe Use of Opioids Does Pt have an Active Cancer Diagnosis on the Problem List?: No Quality: Stroke Does the patient have a stroke diagnosis?: No Physical Exam Vital Signs: Vital Signs: Last Vital Signs Temp 98.6 F 04/16/22 07:38 Pulse 79 04/16/22 07:38 Resp 18 04/16/22 07:38 BP 174/81 H 04/16/22 07:38 Pulse Ox 98 04/16/22 07:38 O2 Del Method 04/16/22 07:38 O2 Flow Rate 3 04/13/22 14:35 BMI result Body Mass Index 38.2 Const: Other: no acute distress Resp: Other: clear to auscultation bilaterally no rales rhonchi or wheezes Cardio: Other: no S4; positive S1-S2; no S3 murmurs rubs or gallops GI: Other: soft nontender nondistended normoactive bowel sounds x4 quadrants Extrem: Other: left lower extremity cool to touch mid tibial distally. Sensation absent minimal movement DS: Data Data Completed and Pending Completed studies during hospitalization [Text1]: Pending at discharge 04/10/22 16:30 Surgical [PTH] Routine Pending studies at discharge: Pending at discharge 04/13/22 11:06 Surgical [PTH] Routine Labs on day of discharge: Laboratory Results - last 24 hr 04/15/22 04/15/22 04/16/22 16:01 19:42 06:52 WBC 14.5 H RBC 3.08 L Hgb 9.4 L Hct 28.1 L MCV 91.2 MCH 30.5 MCHC 33.5 RDW 13.9 Plt Count 306 MPV 9.4 Immature Gran % (Auto) 0.7 H Neut % (Auto) 70.5 Lymph % (Auto) 17.2 L [place] % (Auto) 8.6 Eos % (Auto) 2.6 Baso % (Auto) 0.4 Lymph # (Auto) 2.5 [place] # (Auto) 1.3 H Eos # (Auto) 0.4 Baso # (Auto) 0.1 Abs Immat Gran (auto) 0.10 H Absolute Neuts (auto) 10.2 H Absolute Nucleated RBC 0.000 Nucleated RBC % (auto) 0.0 aPTT Heparin Protocol Sodium Potassium Chloride Carbon Dioxide Anion Gap BUN Creatinine Estim Creat Clear Calc Estimated GFR POC Glucose 170 H 236 H Fasting Glucose Calcium Total Bilirubin AST ALT Alkaline Phosphatase Total Protein Albumin 04/16/22 04/16/22 04/16/22 06:52 06:52 07:40 WBC RBC Hgb Hct MCV MCH MCHC RDW Plt Count MPV Immature Gran % (Auto) Neut % (Auto) Lymph % (Auto) [place] % (Auto) Eos % (Auto) Baso % (Auto) Lymph # (Auto) [place] # (Auto) Eos # (Auto) Baso # (Auto) Abs Immat Gran (auto) Absolute Neuts (auto) Absolute Nucleated RBC Nucleated RBC % (auto) aPTT Heparin Protocol 63.6 Sodium 139 Potassium 4.1 Chloride 101 Carbon Dioxide 26 Anion Gap 16 BUN 14 Creatinine 0.61 Estim Creat Clear Calc 117.2 Estimated GFR > 60 POC Glucose 195 H Fasting Glucose 202 H Calcium 8.6 Total Bilirubin 0.5 AST 131 H ALT 85 H Alkaline Phosphatase 69 Total Protein 5.8 L Albumin 3.2 L Discharge Plan Discharge Patient Disposition: [facility] Discharge Diagnosis: acute coronary syndrome /status post left TKA Referrals: Eva FONTAINE [Outside] - 1 Day (HOME PHYSICAL THERAPY) Jaky Stanley PA-C [Physician Clock Repairer] - 2 Weeks (04/26/22 1:30 [facility] Jaky Stanley PA-C) Discharge Medications: New atorvastatin 40 mg Tablet 40 mg PO BEDTIME Qty: 30 0RF insulin glargine [Lantus U-100 Insulin] 100 unit/mL Solution 35 unit subcut BID Qty: 10 0RF trazodone 50 mg Tablet 50 mg PO BEDTIME PRN (Reason: insomnia) Qty: 30 0RF heparin (porcine) 5,000 unit/mL Solution 8,200 unit IVPUSH PROTOCOL BOLUS PRN (Reason: 80 Unit/Kg - Heparin Protocol) Qty: 10 0RF heparin (porcine) 5,000 unit/mL Solution 4,100 unit IVPUSH PROTOCOL BOLUS PRN (Reason: 40 Unit/Kg - Heparin Protocol) Qty: 10 0RF heparin(porcine) in 0.45% NaCl 25,000 unit/250 mL Parenteral Solution 25,000 unit continuous IV infusion .Q0M Qty: 10 0RF insulin lispro [Humalog U-100 Insulin] 100 unit/mL Solution See Protocol subcut QIDACHS Qty: 10 0RF Protocol: Insulin Correction Scale Less than or equal to 110 ---- Give (units): 0 111 to 150 Give (units): 0 151 to 200 Give (units): 2 201 to 250 Give (units): 4 251 to 300 Give (units): 6 301 to 350 Give (units): 8 Greater than 350 Give (units): 10 Call MD if Blood Glucose > : 350 Continued lisinopril-hydrochlorothiazide 20-25 mg tablet 1 tab PO QAM Soliqua 100/33 100 unit-33 mcg/mL insulin pen 60 unit subcut BEDTIME Rx Instructions: 30units last night aspirin 81 mg Tablet,Delayed Release (Dr/Ec) 81 mg PO QAM glipizide 2.5 mg tablet extended release 24hr 2.5 mg PO QAM Jardiance 10 mg tablet 10 mg PO QAM Discontinued (DME) terence [facility] [place] [facility] [place] See Rx Instructions .MEDSUPPLY Qty: 1 0RF Rx Instructions: Folding Front wheeled walker atorvastatin 10 mg tablet 1 tab PO DAILY metformin 1,000 mg tablet 1,000 mg PO BID acetaminophen-codeine 300-30 mg tablet 1 tab PO DAILY PRN (Reason: Pain) Discharge Orders: Discharge Order (Routine); Ordered 04/16/22 Ordered By: Nabor Dent Diet: Diabetic diet Activity on Discharge: Use cane or walker Stand Alone Forms: Patient Portal Discharge page Care Plan Goals: Restore function of joint Health Concerns: transfer to [facility] for cardiac catheterization Plan of Treatment: Physical Therapy Pain management DVT prophylaxis Assessment: Physical Therapy for Total knee arthroplasty: WBAT, gait training, ROM 0-12, quad strength Limit stair climbing No showering, no tub bath-keep dressing clean, dry and intact No driving x6 weeks Continue Aspirin twice a day x 6 weeks Follow up with [facility] Orthopedics in 2 weeks: --you will also have your first out patient PT eval on the day of your post op appt-so please plan on being in the office that day for an extended period of time.
[2022-04-16 11:20] VITALS: BP 127/97; PULSE 78; RESP 18; TEMP 36.6; O2SAT 95
--- NOTE | 2022-04-16 11:29 | MHC.CM.PN ---
pt being transferred to [facility]
[2022-04-16 11:51] LABS: Glucose, Whole Blood 213 mg/dL (60-115)
[2022-04-16 12:43] VITALS: BP 127/97; PULSE 78; O2SAT 95
== END 2022-04-16 16:21 | disposition short-term general hospital (02) | DRG 302 ==
LOC: HO.SSSA 12:00 → HO.S3 19:47 → HO.ICU 04-12 14:48 → HO.S3 04-14 12:50 → HO.IMC 04-15 22:28
PROVIDERS: Anesthesiology; Internal Medicine; Physician Assistant; Surgery Vascular Surgery; Admitting Provider Orthopaedic Surgery; PCP Internal Medicine Endocrinology, Diabetes & Metabolism; Visit Provider Hospitalist
PROC: 0SRD0JA Replacement of Left Knee Joint with Synthetic Substitute, Uncemented, Open Approach (ICD-10-PCS; CPT 27447; principal; 2022-04-10 14:40)
PROC: 3E08317 Introduction of Other Thrombolytic into Heart, Percutaneous Approach (ICD-10-PCS; principal; 2022-04-12 12:00)
PROC: 04CU0ZZ Extirpation of Matter from Left Peroneal Artery, Open Approach (ICD-10-PCS; principal; 2022-04-13 07:30)
DX: M17.12 Unilateral primary osteoarthritis, left knee (principal); I74.3 Embolism and thrombosis of arteries of the lower extremities; E11.51 Type 2 diabetes mellitus with diabetic peripheral angiopathy without gangrene; I10 Essential (primary) hypertension; F06.4 Anxiety disorder due to known physiological condition; R35.0 Frequency of micturition; E66.9 Obesity, unspecified; F17.210 Nicotine dependence, cigarettes, uncomplicated; I97.89 Other postprocedural complications and disorders of the circulatory system, not elsewhere classified; Z20.822 Contact with and (suspected) exposure to COVID-19; Z71.6 Tobacco abuse counseling; Z68.38 Body mass index [BMI] 38.0-38.9, adult; Z98.51 Tubal ligation status; Z79.4 Long term (current) use of insulin; Z79.84 Long term (current) use of oral hypoglycemic drugs; Z79.899 Other long term (current) drug therapy
CPT/HCPCS: 36246; 36415; 37213; 37214; 73560; 75630; 75898; 80048; 80053; 81003; 82947; 83605; 84484; 85014; 85018; 85025; 85027; 85384; 85610; 85730; 86850; 86900; 86901; 86923; 87635; 87640; 87641; 88304; 88305; 88311; 93005; 93306; 93926; 94640; 97110; 97116; 97162; 99152; 99153; C1751; C1757; C1760; C1768; C1769; C1776; C1887; C1894; J0690; J1100; J1170; J2250; J2370; J2405; J2795; J2997; J3010; Q9967

== ENCOUNTER 2022-04-26 07:21 | Outpatient (RCR) | payer OTHER, SELFPAY ==
--- NOTE | 2022-04-16 20:45 | P.PNOP_ITS ---
Subjective Subjective Date of Service: 04/16/22 Principal diagnosis: PAD s/p left TKA with SFA/Popliteal artery thrombosis Interval history: Patient is resting in bed this morning. Continues to have calf pain. Foot is cold and unable to dorsiflex. Pain is managed. Physical Exam Vital Signs: Vital Signs: Last Vital Signs Temp 99.0 F 04/15/22 07:35 Pulse 85 04/15/22 07:35 Resp 16 04/15/22 07:35 BP 137/79 04/15/22 07:35 Pulse Ox 93 04/15/22 07:35 O2 Del Method 04/15/22 07:35 O2 Flow Rate 3 04/13/22 14:35 BMI result Body Mass Index 38.2 Const: General: cooperative, healthy appearing and no acute distress Resp: Effort & Inspection: normal respiratory effort and able to speak in complete sentences Cardio: Rate: regular rate Peripheral pulses: Peripheral pulses 2+ throughout GI: Palpation (GI): Soft to palpation Skin: Lesions: no lesions Rashes: no rashes Extrem: Other: Aquacel is clean, dry, and intact. No drainage or erythema. 0-45 deg of motion with weak straight leg raise with assistance. Left foot unable to move digits and sensation decreased to touch over dorsum of foot. However, patient reports better sensation than yesterday. Cool to touch with decreased cap refill mottled appearance. Procedures Date of Service Date of Service: 04/16/22 Progress Note: A&P Assessment and plan (1) Acute coronary syndrome: Status: Acute (2) Diabetes: Status: Acute (3) Thrombosis of left popliteal artery: Status: Acute (4) Status post total knee replacement: Status: Acute Assessment and Plan: PT as per protocol Pain management Vascular to continue monitoring ischemic foot Plan for patient to be transferred to [facility] for cardiac cath (5) PAD (peripheral artery disease): Status: Acute Time Spent With Patient Time: Total time spent is greater than 50% in coordination of care (as documented) at patient's floor/unit and/or counseling patient: Quality Stroke Does the patient have a stroke diagnosis?: No VTE Prior VTE?: Yes VTE Risk Level:: Medical - moderate - high VTE Device Contraindication: N/A - Device Ordered VTE Drug Contraindication: N/A - Med Ordered
== END 2022-07-16 12:42 | disposition home or self-care (01) ==
LOC: HO.PT 07:21
PROVIDERS: Visit Provider Physician Assistant
DX: I24.9 Acute ischemic heart disease, unspecified (principal); I74.3 Embolism and thrombosis of arteries of the lower extremities; I73.9 Peripheral vascular disease, unspecified; Z96.659 Presence of unspecified artificial knee joint